=== PATIENT | female | born 1950 | race Caucasian/White ===

== ENCOUNTER → 2017-11-16 08:31 | Outpatient (CLI) | payer MEDICARE, OTHER, SELFPAY ==
[2017-11-16 13:06] LABS: Absolute Lymphocyte Count 3.48 X10^3/ul (0.83-4.51); Absolute Neutrophil Count 0.4 X10^3/uL (2.0-7.7); Basophil# 0.02 X10^3/uL; Basophil% 0.5 % (0-1); Differential Indicated SCAN CRITERIA MET; Eosinophil# 0.04 X10^3/uL; Eosinophils% 0.9 % (0-5); Hematocrit 26.3 % (37-47); Hemoglobin 8.8 g/dl (12.0-15.0); Lymphocyte # 3.48 X10^3/ul (4.0); Lymphocyte % 82.1 % (19-41); Mean Corp Hgb Conc 33.5 g/gl (32-36); Mean Corpuscular Hgb 34.8 pg (27.0-32.0); Monocyte# 0.35 X10^3/uL; Monocyte% 8.3 % (0-10); Neutrophil # 0.35 X10^3/uL (2.7-7.7); Neutrophil % 8.2 % (47-70); POSITIVE COUNT NO; POSITIVE DIFFERENTIAL YES; POSITIVE MORPHOLOGY NO; Platelet Count 336 K/mm3 (150-450); RBC Distribution Width CV 15.5 % (11.6-14.6); Red Blood Count 2.53 M/mm3 (4.2-5.4); White Blood Count 4.2 K/mm3 (4.4-11.0)
[2017-11-16 13:07] LABS: Erythrocyte Sedimentation Rate 23 mm/hr (0-30)
[2017-11-16 13:13] LABS: Vitamin B12 475 pg/mL (211-911); Vitamin D,25 Hydroxy 31.2 ng/mL (29.95-100.01)
[2017-11-16 13:26] LABS: Differential Comment SCANNED
[2017-11-16 15:30] LABS: ALB/GLOB Ratio 1.1 RATIO (0.9-2.4); AST(SGOT) 26 U/L (15-37); Alanine Aminotransfer ALT/SGPT 22 U/L (13-56); Albumin, Serum 4.3 g/dL (3.2-5.0); Alkaline Phosphatase 64 U/L (45-117); Anion Gap 6 (5-15); BUN 9 mg/dL (7-18); CRP < 2.90 mg/L (0.0-3.0); Calcium,Total 8.7 mg/dL (8.5-10.1); Chloride 106 mmol/L (98-107); Creatinine, Serum 0.75 mg/dL (0.55-1.02); EST Glomerular Filtration Rate 83 mL/min (>60); Est Glom Filt Rate - Afr Amer 100 mL/min (>60); Ferritin 94 ng/mL (8-252); Globulin 3.9 g/dL (2.2-4.2); Glucose 97 mg/dL (74-106); Iron 122 ug/dL (50-170); Potassium 3.7 mmol/L (3.5-5.1); Protein, Total 8.2 g/dL (6.4-8.2); Rheumatoid Factor < 10.0 IU/mL (<15); Sodium Level 139 mmol/L (136-145); T4 Free Direct 1.47 ng/dL (0.76-1.46); Thyroid Stim Hormone (TSH) 0.37 uIU/mL (0.358-3.74)
[2017-11-19 11:18] LABS: CCP IgG Antibodies 5 units (0-19)
== END ==
PROVIDERS: Family Provider Family Medicine; PCP Family Medicine; Visit Provider Family Medicine
DX: M06.9 Rheumatoid arthritis, unspecified (principal); E03.9 Hypothyroidism, unspecified; D64.9 Anemia, unspecified; M79.7 Fibromyalgia
CPT/HCPCS: 36415; 80053; 82306; 82607; 82728; 83540; 84439; 84443; 85025; 85652; 86140; 86200; 86431

== ENCOUNTER → 2017-11-21 11:15 | Outpatient (CLI) | payer MEDICARE, OTHER, SELFPAY ==
[2017-11-21 12:53] LABS: Absolute Lymphocyte Count 6.33 X10^3/ul (0.83-4.51); Absolute Neutrophil Count 0.5 X10^3/uL (2.0-7.7); Basophil# 0.03 X10^3/uL; Basophil% 0.4 % (0-1); Eosinophil# 0.04 X10^3/uL; Eosinophils% 0.5 % (0-5); Hematocrit 25.9 % (37-47); Hemoglobin 8.9 g/dl (12.0-15.0); Lymphocyte # 6.33 X10^3/ul (4.0); Lymphocyte % 85.7 % (19-41); Mean Corp Hgb Conc 34.4 g/gl (32-36); Mean Corpuscular Hgb 35.2 pg (27.0-32.0); Mean Corpuscular Volume 102.4 fL (81-99); Mean Platelet Vol. 9.6 fl (6.2-12.0); Monocyte# 0.46 X10^3/uL; Monocyte% 6.2 % (0-10); Neutrophil # 0.53 X10^3/uL (2.7-7.7); Neutrophil % 7.2 % (47-70); Platelet Count 309 K/mm3 (150-450); RBC Distribution Width CV 15.7 % (11.6-14.6); RBC Distribution Width SD 57.9 fl (35.1-43.9); Red Blood Count 2.53 M/mm3 (4.2-5.4); White Blood Count 7.4 K/mm3 (4.4-11.0)
[2017-11-21 12:55] LABS: Differential Indicated SCAN CRITERIA MET; POSITIVE COUNT NO; POSITIVE DIFFERENTIAL YES; POSITIVE MORPHOLOGY YES
== END ==
PROVIDERS: Visit Provider Family Medicine
DX: D64.9 Anemia, unspecified (principal)
CPT/HCPCS: 36415; 85025

== ENCOUNTER → 2018-01-10 10:41 | Outpatient (CLI) | payer MEDICARE, OTHER, SELFPAY ==
--- NOTE | 2018-01-10 10:44 | BI_ITS ---
MAMMOGRAPHY - BILATERAL SCREENING REASON FOR EXAM: Female, 67 years old. Routine annual screening examination. PERTINENT HISTORY: Non-contributory. TECHNIQUE: Digital bilateral breast melanie (3D mammographic acquisition) in the CC and MLO projections. 2-D mediolateral oblique (MLO) and craniocaudad (CC) views of both breasts were obtained. CAD: Full Field Digital Mammography with Computer Added Detection was performed. COMPARISON: Comparison is made with prior examination dated February 21, 2016 and January 14, 2015. FINDINGS: Breast Composition: The breasts are heterogeneously dense, which may obscure small masses. There are no dominant masses or suspicious calcifications. No other significant abnormalities are identified. There has been no significant change since the prior study. BI/SCREENING MAMM (CAD), BILAT IMPRESSION: Stable bilateral screening mammogram. Yearly follow-up mammogram recommended. (A) ASSESSMENT CATEGORY: BIRADS Category 1: Negative. A letter regarding these results will be sent to the patient by the facility within 30 days. Approximately 10% of breast cancers are not detected by mammography. A normal mammogram should not delay biopsy of a clinically suspicious abnormality. [id number] Electronically Signed: James Chávez MD at 9:57 EDT Tel [phone], Service support ,
== END ==
PROVIDERS: Family Provider Family Medicine; PCP Family Medicine; Visit Provider Family Medicine
DX: Z12.31 Encounter for screening mammogram for malignant neoplasm of breast (principal)
CPT/HCPCS: 77063; 77067

== ENCOUNTER → 2018-01-15 13:03 | Outpatient (CLI) | payer MEDICARE, OTHER, SELFPAY ==
[2018-01-15 15:49] LABS: Absolute Lymphocyte Count 4.64 X10^3/ul (0.83-4.51); Absolute Neutrophil Count 0.5 X10^3/uL (2.0-7.7); Basophil# 0.03 X10^3/uL; Basophil% 0.5 % (0-1); Eosinophil# 0.05 X10^3/uL; Eosinophils% 0.9 % (0-5); Hematocrit 24.9 % (37-47); Hemoglobin 8.4 g/dl (12.0-15.0); Lymphocyte # 4.64 X10^3/ul (4.0); Lymphocyte % 83.2 % (19-41); Mean Corp Hgb Conc 33.7 g/gl (32-36); Mean Corpuscular Volume 103.8 fL (81-99); Mean Platelet Vol. 9.5 fl (6.2-12.0); Monocyte% 7.2 % (0-10); Neutrophil # 0.46 X10^3/uL (2.7-7.7); Neutrophil % 8.2 % (47-70); Platelet Count 340 K/mm3 (150-450); RBC Distribution Width CV 14.9 % (11.6-14.6); RBC Distribution Width SD 54.6 fl (35.1-43.9); White Blood Count 5.6 K/mm3 (4.4-11.0)
[2018-01-15 15:52] LABS: Differential Indicated SCAN CRITERIA MET; POSITIVE COUNT NO; POSITIVE DIFFERENTIAL YES; POSITIVE MORPHOLOGY NO
[2018-01-15 16:55] LABS: Platelet Estimate ADEQUATE (ADEQ)
[2018-01-15 16:56] LABS: Anisocytosis RARE; Macrocytosis RARE
== END ==
PROVIDERS: Family Provider Family Medicine; PCP Family Medicine; Visit Provider Family Medicine
DX: D64.9 Anemia, unspecified (principal)
CPT/HCPCS: 36415; 85025

== ENCOUNTER → 2019-01-23 14:30 | Outpatient (CLI) | payer MEDICARE, OTHER, SELFPAY ==
--- NOTE | 2019-01-23 14:36 | BI_ITS ---
MAMMOGRAPHY - BILATERAL SCREENING REASON FOR EXAM: Female, 68 years old. Routine annual screening examination. PERTINENT HISTORY: Non-contributory. History of leukemia. TECHNIQUE: Digital bilateral breast melanie (3D mammographic acquisition) in the CC and MLO projections. 2-D mediolateral oblique (MLO) and craniocaudad (CC) views of both breasts were obtained. CAD: Full Field Digital Mammography with Computer Added Detection was performed. COMPARISON: Comparison is made with prior study dated January 10, 2018 and February 21, 2016. FINDINGS: Breast Composition: The breasts are heterogeneously dense, which may obscure small masses. There are no dominant masses or suspicious calcifications. No other significant abnormalities are identified. There has been no significant change since the prior study. BI/SCREENING MAMM (CAD), BILAT IMPRESSION: Stable bilateral screening mammogram. Yearly follow-up mammogram recommended. (A) ASSESSMENT CATEGORY: BIRADS Category 1: Negative. A letter regarding these results will be sent to the patient by the facility within 30 days. Approximately 10% of breast cancers are not detected by mammography. A normal mammogram should not delay biopsy of a clinically suspicious abnormality. [id number] Electronically Signed: James Chávez, at 8:21 EDT , Service support ,
== END ==
PROVIDERS: Family Provider Family Medicine; PCP Family Medicine; Referring Provider Family Medicine; Visit Provider Family Medicine
DX: Z12.31 Encounter for screening mammogram for malignant neoplasm of breast (principal)
CPT/HCPCS: 77063; 77067

== ENCOUNTER → 2019-08-13 14:18 | Outpatient (CLI) | payer MEDICARE, OTHER, SELFPAY ==
[2019-08-13 16:35] LABS: Thyroid Stim Hormone (TSH) 1.47 uIU/mL (0.358-3.74)
== END ==
PROVIDERS: Family Provider Family Medicine; PCP Family Medicine; Visit Provider Family Medicine
DX: E03.9 Hypothyroidism, unspecified (principal)
CPT/HCPCS: 36415; 84443

== ENCOUNTER → 2020-02-04 07:02 | Outpatient (CLI) | payer MEDICARE, OTHER, SELFPAY ==
--- NOTE | 2020-02-04 07:05 | BI_ITS ---
MAMMOGRAPHY - BILATERAL SCREENING REASON FOR EXAM: Female, 69 years old. Routine annual screening examination. PERTINENT HISTORY: Non-contributory. Past history of leukemia. TECHNIQUE: Digital bilateral breast ajith (3D mammographic acquisition) in the CC and MLO projections. 2-D mediolateral oblique (MLO) and craniocaudad (CC) views of both breasts were obtained. CAD: Full Field Digital Mammography with Computer Added Detection was performed. COMPARISON: Comparison is made with prior study dated January 23, 2019 and January 10, 2018. FINDINGS: Breast Composition: The breasts are heterogeneously dense, which may obscure small masses. There are no dominant masses or suspicious calcifications. No other significant abnormalities are identified. There has been no significant change since the prior study. BI/SCREEN MAMM (CAD) W/AJITH BILAT IMPRESSION: Stable bilateral screening mammogram. Yearly follow-up mammogram recommended. (A) ASSESSMENT CATEGORY: BIRADS Category 1: Negative. A letter regarding these results will be sent to the patient by the facility within 30 days. Approximately 10% of breast cancers are not detected by mammography. A normal mammogram should not delay biopsy of a clinically suspicious abnormality. [id number] Electronically Signed: James Chávez, at 8:46 EDT , Service support ,
== END ==
PROVIDERS: PCP Family Medicine; Referring Provider Family Medicine; Visit Provider Family Medicine
DX: Z12.31 Encounter for screening mammogram for malignant neoplasm of breast (principal)
CPT/HCPCS: 77063; 77067

== ENCOUNTER → 2020-07-19 10:57 | Outpatient (CLI) | payer MEDICARE, OTHER, SELFPAY ==
[2020-07-19 13:05] LABS: Thyroid Stim Hormone (TSH) 0.19 uIU/mL (0.358-3.74)
== END ==
PROVIDERS: PCP Family Medicine; Visit Provider Family Medicine
DX: E03.9 Hypothyroidism, unspecified (principal)
CPT/HCPCS: 36415; 84443

== ENCOUNTER → 2020-08-24 10:21 | Outpatient (CLI) | payer MEDICARE, OTHER, SELFPAY | PROVIDERS: PCP Family Medicine; Visit Provider Family Medicine | DX: E03.9 Hypothyroidism, unspecified (principal) | CPT/HCPCS: 36415; 84439; 84443 ==

== ENCOUNTER → 2021-02-04 07:18 | Outpatient (CLI) | payer MEDICARE, OTHER, SELFPAY ==
--- NOTE | 2021-02-04 07:22 | BI_ITS ---
MAMMOGRAPHY - BILATERAL SCREENING REASON FOR EXAM: Female, 70 years old. Routine annual screening examination. PERTINENT HISTORY: Non-contributory. TECHNIQUE: Digital bilateral breast ajith (3D mammographic acquisition) in the CC and MLO projections. 2-D mediolateral oblique (MLO) and craniocaudad (CC) views of both breasts were obtained. CAD: Full Field Digital Mammography with Computer Added Detection was performed. COMPARISON: Comparison is made with prior study dated 02/04/2020 and 01/23/2019. FINDINGS: Breast Composition: The breasts are heterogeneously dense, which may obscure small masses. There are no dominant masses or suspicious calcifications. No other significant abnormalities are identified. There has been no significant change since the prior study. BI/SCRN MAMM (CAD)W/AJITH BILAT IMPRESSION: Stable bilateral screening mammogram. Yearly follow-up mammogram recommended. (A) ASSESSMENT CATEGORY: BIRADS Category 1: Negative. A letter regarding these results will be sent to the patient by the facility within 30 days. Approximately 10% of breast cancers are not detected by mammography. A normal mammogram should not delay biopsy of a clinically suspicious abnormality. [id number] Electronically Signed: James Chávez MD at 8:26 EDT , Service support ,
== END ==
PROVIDERS: PCP Family Medicine; Referring Provider Family Medicine; Visit Provider Family Medicine
DX: Z12.31 Encounter for screening mammogram for malignant neoplasm of breast (principal)
CPT/HCPCS: 77063; 77067

== ENCOUNTER → 2021-03-15 09:55 | Outpatient (CLI) | payer MEDICARE, OTHER, SELFPAY ==
[2021-03-15 12:09] LABS: Erythrocyte Sedimentation Rate 7 mm/hr (0-30)
[2021-03-15 12:12] LABS: Absolute Lymphocyte Count 1.46 X10^3/uL (0.83-4.51); Absolute Neutrophil Count 1.6 X10^3/uL (2.0-7.7); Basophil# 0.02 X10^3/uL; Basophil% 0.6 % (0-1); Eosinophil# 0.03 X10^3/uL; Eosinophils% 0.8 % (0-5); Hematocrit 34.6 % (37-47); Lymphocyte # 1.46 X10^3/ul (0.83-4.51); Lymphocyte % 40.6 % (19-41); Mean Corp Hgb Conc 34.7 g/dL (32-36); Mean Corpuscular Hgb 32.8 pg (27.0-32.0); Mean Corpuscular Volume 94.5 fL (81-99); Monocyte% 13.9 % (0-10); NRBC Flagged by Analyzer 0 % (0-5); Neutrophil # 1.59 X10^3/uL (2.7-7.7); Neutrophil % 44.1 % (47-70); Platelet Count 278 K/mm3 (150-450); RBC Distribution Width CV 13.6 % (11.6-14.6); RBC Distribution Width SD 46.5 fl (35.1-43.9); Red Blood Count 3.66 M/mm3 (4.2-5.4); White Blood Count 3.6 K/mm3 (4.4-11.0)
[2021-03-15 12:34] LABS: AST(SGOT) 24 U/L (15-37); Alanine Aminotransfer ALT/SGPT 25 U/L (13-56); Albumin, Serum 4.3 g/dL (3.2-5.0); Alkaline Phosphatase 68 U/L (45-117); Anion Gap 7 (5-15); BUN 9 mg/dL (7-18); BUN/Creat Ratio 10.7 RATIO (10-20); CRP < 2.90 mg/L (0.0-3.0); Calcium,Total 9.3 mg/dL (8.5-10.1); Chloride 101 mmol/L (98-107); Creatinine, Serum 0.84 mg/dL (0.55-1.02); EST Glomerular Filtration Rate 71 mL/min (>60); Est Glom Filt Rate - Afr Amer 86 mL/min (>60); Globulin 4.2 g/dL (2.2-4.2); Glucose 91 mg/dL (74-106); Potassium 3.5 mmol/L (3.5-5.1); Protein, Total 8.5 g/dL (6.4-8.2); Rheumatoid Factor < 10.0 IU/mL (<15); Sodium Level 138 mmol/L (136-145)
[2021-03-15 12:50] LABS: Hepatitis B Surface Antibody Non-Reactive; Hepatitis B Surface Antigen Non-Reactive (Nonreactive); Hepatitis C Antibody Non-Reactive (Nonreactive)
[2021-03-16 12:08] LABS: SJOGREN'S Anti-SS-A test < 0.2 AI (0.0-0.9); SJOGREN'S Anti-SS-B test < 0.2 AI (0.0-0.9)
[2021-03-16 16:10] LABS: ANTINUCLEAR ANTIBODIES DIRECT Negative (Negative)
[2021-03-17 07:41] LABS: CCP IgG Antibodies 5 units (0-19)
== END ==
PROVIDERS: PCP Family Medicine; Referring Provider Internal Medicine Rheumatology; Visit Provider Internal Medicine Rheumatology
DX: M06.09 Rheumatoid arthritis without rheumatoid factor, multiple sites (principal); M79.7 Fibromyalgia; C91.Z0 Other lymphoid leukemia not having achieved remission; E03.9 Hypothyroidism, unspecified; J45.909 Unspecified asthma, uncomplicated; E78.5 Hyperlipidemia, unspecified; G43.909 Migraine, unspecified, not intractable, without status migrainosus; Z79.899 Other long term (current) drug therapy
CPT/HCPCS: 36415; 80053; 85025; 85652; 86038; 86140; 86200; 86235; 86431; 86706; 86803; 87340

== ENCOUNTER → 2021-06-07 13:39 | Outpatient (CLI) | payer MEDICARE, OTHER, SELFPAY ==
[2021-06-07 15:23] LABS: Absolute Lymphocyte Count 1.25 X10^3/uL (0.83-4.51); Absolute Neutrophil Count 1.6 X10^3/uL (2.0-7.7); Basophil# 0.04 X10^3/uL; Basophil% 1.3 % (0-1); Eosinophil# 0.02 X10^3/uL; Eosinophils% 0.6 % (0-5); Hematocrit 36.9 % (37-47); Hemoglobin 12.7 g/dL (12.0-15.0); Lymphocyte # 1.25 X10^3/ul (0.83-4.51); Lymphocyte % 39.1 % (19-41); Mean Corp Hgb Conc 34.4 g/dL (32-36); Mean Corpuscular Volume 95.8 fL (81-99); Mean Platelet Vol. 9.7 fl (6.2-12.0); Monocyte# 0.29 X10^3/uL; Monocyte% 9.1 % (0-10); NRBC Flagged by Analyzer 0 % (0-5); Neutrophil % 49.9 % (47-70); Platelet Count 292 K/mm3 (150-450); RBC Distribution Width CV 13.8 % (11.6-14.6); RBC Distribution Width SD 48.3 fl (35.1-43.9); Red Blood Count 3.85 M/mm3 (4.2-5.4); White Blood Count 3.2 K/mm3 (4.4-11.0)
[2021-06-07 15:51] LABS: AST(SGOT) 22 U/L (15-37); Alanine Aminotransfer ALT/SGPT 27 U/L (13-56); Albumin, Serum 4.1 g/dL (3.2-5.0); Alkaline Phosphatase 67 U/L (45-117); Anion Gap 7 (5-15); BUN 8 mg/dL (7-18); BUN/Creat Ratio 9.8 RATIO (10-20); Calcium,Total 9.1 mg/dL (8.5-10.1); Chloride 100 mmol/L (98-107); Creatinine, Serum 0.81 mg/dL (0.55-1.02); EST Glomerular Filtration Rate 74 mL/min (>60); Est Glom Filt Rate - Afr Amer 90 mL/min (>60); Globulin 4.2 g/dL (2.2-4.2); Glucose 103 mg/dL (74-106); Potassium 3.7 mmol/L (3.5-5.1); Protein, Total 8.3 g/dL (6.4-8.2); Sodium Level 137 mmol/L (136-145)
== END ==
PROVIDERS: PCP Family Medicine; Referring Provider Internal Medicine Rheumatology; Visit Provider Internal Medicine Rheumatology
DX: M06.09 Rheumatoid arthritis without rheumatoid factor, multiple sites (principal); M79.7 Fibromyalgia; C91.Z0 Other lymphoid leukemia not having achieved remission; E03.9 Hypothyroidism, unspecified; J45.909 Unspecified asthma, uncomplicated; E78.5 Hyperlipidemia, unspecified; G43.909 Migraine, unspecified, not intractable, without status migrainosus; Z79.899 Other long term (current) drug therapy
CPT/HCPCS: 36415; 80053; 85025

== ENCOUNTER → 2021-08-02 12:11 | Outpatient (CLI) | payer MEDICARE, OTHER, SELFPAY ==
[2021-08-02 15:14] LABS: Absolute Lymphocyte Count 1.56 X10^3/uL (0.83-4.51); Absolute Neutrophil Count 1.5 X10^3/uL (2.0-7.7); Basophil# 0.04 X10^3/uL; Basophil% 1.1 % (0-1); Eosinophil# 0.03 X10^3/uL; Eosinophils% 0.9 % (0-5); Hemoglobin 11.9 g/dL (12.0-15.0); Lymphocyte # 1.56 X10^3/ul (0.83-4.51); Lymphocyte % 44.8 % (19-41); Mean Corpuscular Hgb 32.3 pg (27.0-32.0); Mean Corpuscular Volume 95.1 fL (81-99); Mean Platelet Vol. 10.3 fl (6.2-12.0); Monocyte# 0.34 X10^3/uL; Monocyte% 9.8 % (0-10); NRBC Flagged by Analyzer 0 % (0-5); Neutrophil # 1.51 X10^3/uL (2.7-7.7); Neutrophil % 43.4 % (47-70); Platelet Count 256 K/mm3 (150-450); RBC Distribution Width SD 48.2 fl (35.1-43.9); Red Blood Count 3.68 M/mm3 (4.2-5.4); White Blood Count 3.5 K/mm3 (4.4-11.0)
[2021-08-02 15:29] LABS: AST(SGOT) 23 U/L (15-37); Alanine Aminotransfer ALT/SGPT 26 U/L (13-56); Alkaline Phosphatase 65 U/L (45-117); Anion Gap 5 (5-15); BUN 8 mg/dL (7-18); Calcium,Total 9.1 mg/dL (8.5-10.1); Chloride 102 mmol/L (98-107); EST Glomerular Filtration Rate 76 mL/min (>60); Est Glom Filt Rate - Afr Amer 91 mL/min (>60); Glucose 93 mg/dL (74-106); Sodium Level 137 mmol/L (136-145)
== END ==
PROVIDERS: PCP Family Medicine; Referring Provider Internal Medicine Rheumatology; Visit Provider Internal Medicine Rheumatology
DX: M06.09 Rheumatoid arthritis without rheumatoid factor, multiple sites (principal); M79.7 Fibromyalgia; C91.Z0 Other lymphoid leukemia not having achieved remission; E03.9 Hypothyroidism, unspecified; J45.909 Unspecified asthma, uncomplicated; E78.5 Hyperlipidemia, unspecified; G43.909 Migraine, unspecified, not intractable, without status migrainosus; Z79.899 Other long term (current) drug therapy
CPT/HCPCS: 36415; 80053; 85025

== ENCOUNTER 2021-10-19 08:51 | Outpatient (CLI) | payer MEDICARE, OTHER, SELFPAY ==
[2021-10-19 10:28] LABS: Absolute Lymphocyte Count 1.45 X10^3/uL (0.83-4.51); Basophil# 0.02 X10^3/uL; Basophil% 0.5 % (0-1); Eosinophil# 0.03 X10^3/uL; Eosinophils% 0.8 % (0-5); Hematocrit 34.8 % (37-47); Hemoglobin 11.7 g/dL (12.0-15.0); Lymphocyte # 1.45 X10^3/ul (0.83-4.51); Lymphocyte % 37.1 % (19-41); Mean Corp Hgb Conc 33.6 g/dL (32-36); Mean Corpuscular Hgb 32.3 pg (27.0-32.0); Mean Corpuscular Volume 96.1 fL (81-99); Mean Platelet Vol. 9.4 fl (6.2-12.0); Monocyte# 0.44 X10^3/uL; Monocyte% 11.3 % (0-10); NRBC Flagged by Analyzer 0 % (0-5); Neutrophil # 1.96 X10^3/uL (2.7-7.7); Platelet Count 264 K/mm3 (150-450); RBC Distribution Width CV 14.1 % (11.6-14.6); Red Blood Count 3.62 M/mm3 (4.2-5.4); White Blood Count 3.9 K/mm3 (4.4-11.0)
[2021-10-19 11:06] LABS: ALB/GLOB Ratio 1.1 RATIO (0.9-2.4); AST(SGOT) 22 U/L (15-37); Alanine Aminotransfer ALT/SGPT 29 U/L (13-56); Alkaline Phosphatase 65 U/L (45-117); Anion Gap 4 (5-15); BUN 8 mg/dL (7-18); BUN/Creat Ratio 10.8 RATIO (10-20); Calcium,Total 9.1 mg/dL (8.5-10.1); Chloride 104 mmol/L (98-107); Creatinine, Serum 0.74 mg/dL (0.55-1.02); EST Glomerular Filtration Rate 83 mL/min (>60); Est Glom Filt Rate - Afr Amer 100 mL/min (>60); Globulin 3.7 g/dL (2.2-4.2); Glucose 69 mg/dL (74-106); Potassium 3.8 mmol/L (3.5-5.1); Protein, Total 7.7 g/dL (6.4-8.2); Sodium Level 138 mmol/L (136-145)
== END 2021-10-19 23:59 | disposition home or self-care (01) ==
LOC: MTLAB 08:53
PROVIDERS: PCP Family Medicine; Referring Provider Internal Medicine Rheumatology; Visit Provider Internal Medicine Rheumatology
DX: M06.09 Rheumatoid arthritis without rheumatoid factor, multiple sites (principal); C91.Z0 Other lymphoid leukemia not having achieved remission; M79.7 Fibromyalgia; E03.9 Hypothyroidism, unspecified; J45.909 Unspecified asthma, uncomplicated; E78.5 Hyperlipidemia, unspecified; G43.909 Migraine, unspecified, not intractable, without status migrainosus; Z79.899 Other long term (current) drug therapy
CPT/HCPCS: 36415; 80053; 85025

== ENCOUNTER 2021-12-20 10:20 | Outpatient (CLI) | payer MEDICARE, OTHER, SELFPAY ==
[2021-12-20 12:11] LABS: Absolute Lymphocyte Count 1.27 X10^3/uL (0.83-4.51); Absolute Neutrophil Count 2.3 X10^3/uL (2.0-7.7); Basophil# 0.05 X10^3/uL; Basophil% 1.2 % (0-1); Eosinophil# 0.07 X10^3/uL; Eosinophils% 1.6 % (0-5); Hemoglobin 12.1 g/dL (12.0-15.0); Lymphocyte # 1.27 X10^3/ul (0.83-4.51); Lymphocyte % 29.3 % (19-41); Mean Corp Hgb Conc 34.6 g/dL (32-36); Mean Corpuscular Hgb 33.3 pg (27.0-32.0); Mean Corpuscular Volume 96.4 fL (81-99); Mean Platelet Vol. 9.4 fl (6.2-12.0); Monocyte# 0.63 X10^3/uL; Monocyte% 14.5 % (0-10); NRBC Flagged by Analyzer 0 % (0-5); Neutrophil # 2.32 X10^3/uL (2.7-7.7); Neutrophil % 53.4 % (47-70); Platelet Count 267 K/mm3 (150-450); RBC Distribution Width CV 14.2 % (11.6-14.6); RBC Distribution Width SD 49.6 fl (35.1-43.9); Red Blood Count 3.63 M/mm3 (4.2-5.4); White Blood Count 4.3 K/mm3 (4.4-11.0)
[2021-12-20 12:35] LABS: ALB/GLOB Ratio 1.1 RATIO (0.9-2.4); AST(SGOT) 21 U/L (15-37); Alanine Aminotransfer ALT/SGPT 27 U/L (13-56); Albumin, Serum 4.1 g/dL (3.2-5.0); Alkaline Phosphatase 70 U/L (45-117); Anion Gap 5 (5-15); BUN 10 mg/dL (7-18); BUN/Creat Ratio 12.9 RATIO (10-20); Calcium,Total 8.9 mg/dL (8.5-10.1); Chloride 100 mmol/L (98-107); Creatinine, Serum 0.78 mg/dL (0.55-1.02); EST Glomerular Filtration Rate 78 mL/min (>60); Est Glom Filt Rate - Afr Amer 95 mL/min (>60); Globulin 3.9 g/dL (2.2-4.2); Glucose 103 mg/dL (74-106); Potassium 3.8 mmol/L (3.5-5.1); Sodium Level 136 mmol/L (136-145)
== END 2021-12-20 23:59 | disposition home or self-care (01) ==
LOC: MTLAB 10:23
PROVIDERS: PCP Family Medicine; Referring Provider Internal Medicine Rheumatology; Visit Provider Internal Medicine Rheumatology
DX: M06.09 Rheumatoid arthritis without rheumatoid factor, multiple sites (principal); C91.Z0 Other lymphoid leukemia not having achieved remission; M79.7 Fibromyalgia; E03.9 Hypothyroidism, unspecified; J45.909 Unspecified asthma, uncomplicated; E78.5 Hyperlipidemia, unspecified; G43.909 Migraine, unspecified, not intractable, without status migrainosus; Z79.899 Other long term (current) drug therapy
CPT/HCPCS: 36415; 80053; 85025

== ENCOUNTER → 2022-01-20 | Outpatient (CLI) | payer MEDICARE, OTHER, SELFPAY ==
[2022-01-20 12:49] LABS: Cholesterol 165 mg/dL (200); High Density Lipoprotein 47 mg/dL; Triglycerides 110 mg/dL; Very Low Density Lipoprotein 22 mg/dL (5-40)
== END | disposition home or self-care (01) ==
LOC: MTLAB 09:57
PROVIDERS: PCP Family Medicine; Referring Provider Family Medicine; Visit Provider Family Medicine
DX: E03.9 Hypothyroidism, unspecified (principal); E78.1 Pure hyperglyceridemia
CPT/HCPCS: 36415; 80061; 84439; 84443

== ENCOUNTER → 2022-02-08 | Outpatient (CLI) | payer MEDICARE, OTHER, SELFPAY ==
--- NOTE | 2022-02-08 08:33 | BI_ITS ---
MAMMOGRAPHY - BILATERAL SCREENING REASON FOR EXAM: Female, 71 years old. Routine annual screening examination. PERTINENT HISTORY: Non-contributory. TECHNIQUE: Digital bilateral breast ajith (3D mammographic acquisition) in the CC and MLO projections. 2-D mediolateral oblique (MLO) and craniocaudad (CC) views of both breasts were obtained. CAD: Full Field Digital Mammography with Computer Added Detection was performed. COMPARISON: Comparison is made with prior study dated 02/04/2021 and 02/04/2020. FINDINGS: Breast Composition: The breasts are heterogeneously dense, which may obscure small masses. There are no dominant masses or suspicious calcifications. No other significant abnormalities are identified. There has been no significant change since the prior study. BI/SCRN MAMM (CAD)W/AJITH BILAT IMPRESSION: Stable bilateral screening mammogram. Yearly follow-up mammogram recommended. (A) ASSESSMENT CATEGORY: BIRADS Category 1: Negative. A letter regarding these results will be sent to the patient by the facility within 30 days. Approximately 10% of breast cancers are not detected by mammography. A normal mammogram should not delay biopsy of a clinically suspicious abnormality. [id number] Electronically Signed: James Chávez MD at 9:56 EDT ,
== END | disposition home or self-care (01) ==
LOC: OPBI 08:31
PROVIDERS: PCP Family Medicine; Visit Provider Family Medicine
DX: Z12.31 Encounter for screening mammogram for malignant neoplasm of breast (principal)
CPT/HCPCS: 77063; 77067

== ENCOUNTER → 2022-02-14 | Outpatient (CLI) | payer MEDICARE, OTHER, SELFPAY ==
--- NOTE | 2022-02-14 14:00 | BD_ITS ---
STUDY: DUAL ENERGY X-RAY ABSORPTIOMETRY / DXA REASON FOR EXAM: Female, 71 years old. [id number] TECHNIQUE: Bone Mineral Density (BMD) measurements of lumbar spine and bilateral hips were obtained. COMPARISON: None. FINDINGS: Lumbar Spine (L1-L4): g/cm2 (1.0-1) / T-score (-0.7) / Z-score (1.5) Findings are suggestive of normal bone density with a low fracture risk. Left Femur Total: g/cm2 (0.985) / T-score (0.4) / Z-score (1.8) Left Femoral Neck: g/cm2 (0.786) / T-score (-0.6) / Z-score (1.2) Right Femur Total: g/cm2 (0.980) / T-score (0.3) / Z-score (1.8) Right Femoral Neck: g/cm2 (0.809) / T-score (-0.4) / Z-score (1.4) BD/Dexa Bone Density Study IMPRESSION: The patient is considered normal as outlined below according to World Jacek Organization (WHO) criteria with a low fracture risk. Reference Information: The T-score is the number of standard deviations above or below the standard which is normal for young adults at their peak bone mineral density. The World Health Organization (WHO) interprets the T-scores as follows: Above -1 Normal bone density Between -1 and -2.5 Osteopenia Equal to / or below -2.5 Osteoporosis As a practical clinical guideline, osteopenia may be graded as follows: Mild -1 through -1.5 Moderate -1.6 through -2.0 Severe -2.1 through -2.4 The Z-score is the number of standard deviations above or below age-matched controls. A Z-score of less than -1.5 would be considered abnormal. References: 1. NIH Osteoporosis and Related Bone Diseases www osteo.org 2. International Society for Clinical Densitometry www iscd.org 3. National Osteoporosis Foundation www nof.org Electronically Signed: Arturo Stephens MD at 14:26 EDT ,
== END | disposition home or self-care (01) ==
LOC: OPBD 13:52
PROVIDERS: PCP Family Medicine; Visit Provider Family Medicine
DX: Z78.0 Asymptomatic menopausal state (principal)
CPT/HCPCS: 77080

== ENCOUNTER → 2022-02-20 | Outpatient (CLI) | payer MEDICARE, OTHER, SELFPAY ==
[2022-02-20 10:13] LABS: Absolute Lymphocyte Count 1.75 X10^3/uL (0.83-4.51); Basophil# 0.05 X10^3/uL; Basophil% 1.2 % (0-1); Eosinophil# 0.03 X10^3/uL; Eosinophils% 0.7 % (0-5); Hemoglobin 11.9 g/dL (12.0-15.0); Lymphocyte # 1.75 X10^3/ul (0.83-4.51); Mean Corpuscular Hgb 32.9 pg (27.0-32.0); Mean Corpuscular Volume 96.7 fL (81-99); Mean Platelet Vol. 9.3 fl (6.2-12.0); Monocyte# 0.41 X10^3/uL; Monocyte% 9.6 % (0-10); NRBC Flagged by Analyzer 0 % (0-5); Neutrophil # 2.02 X10^3/uL (2.7-7.7); Neutrophil % 47.3 % (47-70); Platelet Count 238 K/mm3 (150-450); RBC Distribution Width CV 14.3 % (11.6-14.6); RBC Distribution Width SD 49.9 fl (35.1-43.9); Red Blood Count 3.62 M/mm3 (4.2-5.4); White Blood Count 4.3 K/mm3 (4.4-11.0)
[2022-02-20 10:38] LABS: ALB/GLOB Ratio 1.1 RATIO (0.9-2.4); AST(SGOT) 33 U/L (15-37); Alanine Aminotransfer ALT/SGPT 33 U/L (13-56); Albumin, Serum 4.1 g/dL (3.2-5.0); Alkaline Phosphatase 53 U/L (45-117); Anion Gap 4 (5-15); BUN 10 mg/dL (7-18); BUN/Creat Ratio 13.2 RATIO (10-20); Calcium,Total 9.3 mg/dL (8.5-10.1); Chloride 101 mmol/L (98-107); Creatinine, Serum 0.76 mg/dL (0.55-1.02); EST Glomerular Filtration Rate 81 mL/min (>60); Est Glom Filt Rate - Afr Amer 98 mL/min (>60); Globulin 3.7 g/dL (2.2-4.2); Glucose 78 mg/dL (74-106); Potassium 3.5 mmol/L (3.5-5.1); Protein, Total 7.8 g/dL (6.4-8.2); Sodium Level 137 mmol/L (136-145)
== END | disposition home or self-care (01) ==
LOC: MTLAB 08:55
PROVIDERS: PCP Family Medicine; Referring Provider Internal Medicine Rheumatology; Visit Provider Internal Medicine Rheumatology
DX: M06.09 Rheumatoid arthritis without rheumatoid factor, multiple sites (principal); C91.Z0 Other lymphoid leukemia not having achieved remission; M79.7 Fibromyalgia; E03.9 Hypothyroidism, unspecified; J45.909 Unspecified asthma, uncomplicated; E78.5 Hyperlipidemia, unspecified; G43.909 Migraine, unspecified, not intractable, without status migrainosus; Z79.899 Other long term (current) drug therapy
CPT/HCPCS: 36415; 80053; 85025

== ENCOUNTER → 2022-04-28 | Outpatient (CLI) | payer MEDICARE, OTHER, SELFPAY ==
[2022-04-28 15:07] LABS: Absolute Lymphocyte Count 1.14 X10^3/uL (0.83-4.51); Absolute Neutrophil Count 1.8 X10^3/uL (2.0-7.7); Basophil# 0.04 X10^3/uL; Basophil% 1.2 % (0-1); Eosinophil# 0.02 X10^3/uL; Eosinophils% 0.6 % (0-5); Hematocrit 36.2 % (37-47); Hemoglobin 12.3 g/dL (12.0-15.0); Lymphocyte # 1.14 X10^3/ul (0.83-4.51); Mean Corpuscular Hgb 33.2 pg (27.0-32.0); Mean Corpuscular Volume 97.6 fL (81-99); Mean Platelet Vol. 9.7 fl (6.2-12.0); Monocyte# 0.35 X10^3/uL; Monocyte% 10.4 % (0-10); NRBC Flagged by Analyzer 0 % (0-5); Neutrophil % 53.8 % (47-70); Platelet Count 262 K/mm3 (150-450); RBC Distribution Width CV 14.6 % (11.6-14.6); RBC Distribution Width SD 51.5 fl (35.1-43.9); Red Blood Count 3.71 M/mm3 (4.2-5.4); White Blood Count 3.4 K/mm3 (4.4-11.0)
[2022-04-28 15:23] LABS: AST(SGOT) 24 U/L (15-37); Alanine Aminotransfer ALT/SGPT 32 U/L (13-56); Alkaline Phosphatase 59 U/L (45-117); Anion Gap 5 (5-15); BUN 9 mg/dL (7-18); BUN/Creat Ratio 11.2 RATIO (10-20); Calcium,Total 9.2 mg/dL (8.5-10.1); Chloride 98 mmol/L (98-107); EST Glomerular Filtration Rate 75 mL/min (>60); Est Glom Filt Rate - Afr Amer 91 mL/min (>60); Globulin 3.9 g/dL (2.2-4.2); Glucose 103 mg/dL (74-106); Potassium 3.8 mmol/L (3.5-5.1); Protein, Total 7.9 g/dL (6.4-8.2); Sodium Level 135 mmol/L (136-145)
== END | disposition home or self-care (01) ==
LOC: MTLAB 13:09
PROVIDERS: PCP Family Medicine; Referring Provider Internal Medicine Rheumatology; Visit Provider Internal Medicine Rheumatology
DX: M06.09 Rheumatoid arthritis without rheumatoid factor, multiple sites (principal); C91.Z0 Other lymphoid leukemia not having achieved remission; M79.7 Fibromyalgia; E03.9 Hypothyroidism, unspecified; J45.909 Unspecified asthma, uncomplicated; E78.5 Hyperlipidemia, unspecified; G43.909 Migraine, unspecified, not intractable, without status migrainosus; Z79.899 Other long term (current) drug therapy
CPT/HCPCS: 36415; 80053; 85025

== ENCOUNTER → 2022-07-12 | Outpatient (CLI) | payer MEDICARE, OTHER, SELFPAY ==
--- NOTE | 2022-07-12 14:29 | NEURO ---
NCS and/or EMG Patient Report Ordering Doctor: Radha Bonilla DATE OF SERVICE: 07/12/22 Elenita presents for electrodiagnostic testing of the right upper limb. She reports numbness and tingling in the right hand radiating up to the shoulder. Electrodiagnostic findings: Right median motor nerve demonstrates prolonged distal latency with normal amplitude and reduced conduction velocity. Normal right ulnar motor response, including conduction across the elbow. Prolonged right median F wave. Prolonged right median sensory latency at the wrist and palm. Normal right ulnar and radial sensory responses. On needle EMG, all muscles tested in the right upper limb showed no evidence of denervation with normal motor unit action potentials. Electrodiagnostic impression: This is an abnormal study in the right upper limb. 1. Electrodiagnostic findings demonstrate right-sided median mononeuropathy. This is consistent with a moderate to severe right carpal tunnel syndrome.
== END | disposition home or self-care (01) ==
LOC: PSN 13:18
PROVIDERS: PCP Family Medicine; Referring Provider Internal Medicine Rheumatology; Visit Provider Internal Medicine Rheumatology
DX: M06.09 Rheumatoid arthritis without rheumatoid factor, multiple sites (principal); C91.Z0 Other lymphoid leukemia not having achieved remission; M79.7 Fibromyalgia; E03.9 Hypothyroidism, unspecified; J45.909 Unspecified asthma, uncomplicated; E78.5 Hyperlipidemia, unspecified; G43.909 Migraine, unspecified, not intractable, without status migrainosus; Z79.899 Other long term (current) drug therapy
CPT/HCPCS: 95886; 95910

== ENCOUNTER → 2022-07-27 | Outpatient (CLI) | payer MEDICARE, OTHER, SELFPAY ==
[2022-07-27 15:01] LABS: Absolute Lymphocyte Count 1.23 X10^3/uL (0.83-4.51); Absolute Neutrophil Count 2.2 X10^3/uL (2.0-7.7); Basophil# 0.03 X10^3/uL; Basophil% 0.8 % (0-1); Eosinophil# 0.02 X10^3/uL; Eosinophils% 0.6 % (0-5); Hematocrit 37.6 % (37-47); Hemoglobin 12.6 g/dL (12.0-15.0); Lymphocyte # 1.23 X10^3/ul (0.83-4.51); Mean Corp Hgb Conc 33.5 g/dL (32-36); Mean Corpuscular Hgb 32.7 pg (27.0-32.0); Mean Corpuscular Volume 97.7 fL (81-99); Mean Platelet Vol. 10.1 fl (6.2-12.0); Monocyte# 0.19 X10^3/uL; Monocyte% 5.2 % (0-10); NRBC Flagged by Analyzer 0 % (0-5); Neutrophil # 2.15 X10^3/uL (2.7-7.7); Neutrophil % 59.4 % (47-70); Platelet Count 273 K/mm3 (150-450); RBC Distribution Width CV 14.3 % (11.6-14.6); RBC Distribution Width SD 49.8 fl (35.1-43.9); Red Blood Count 3.85 M/mm3 (4.2-5.4); White Blood Count 3.6 K/mm3 (4.4-11.0)
[2022-07-27 15:20] LABS: Albumin, Serum 4.3 g/dL (3.2-5.0); BUN 9 mg/dL (7-18); BUN/Creat Ratio 12.2 RATIO (10-20); Creatinine, Serum 0.74 mg/dL (0.55-1.02); EST Glomerular Filtration Rate 83 mL/min (>60); Est Glom Filt Rate - Afr Amer 101 mL/min (>60); Globulin 4.1 g/dL (2.2-4.2); Glucose 110 mg/dL (74-106); Protein, Total 8.4 g/dL (6.4-8.2)
[2022-07-27 15:21] LABS: AST(SGOT) 19 U/L (15-37); Alanine Aminotransfer ALT/SGPT 28 U/L (13-56); Alkaline Phosphatase 59 U/L (45-117); Anion Gap 5 (5-15); Calcium,Total 9.6 mg/dL (8.5-10.1); Chloride 101 mmol/L (98-107); Potassium 3.6 mmol/L (3.5-5.1); Sodium Level 138 mmol/L (136-145)
== END | disposition home or self-care (01) ==
LOC: MTLAB 11:50
PROVIDERS: PCP Family Medicine; Referring Provider Internal Medicine Rheumatology; Visit Provider Internal Medicine Rheumatology
DX: M06.09 Rheumatoid arthritis without rheumatoid factor, multiple sites (principal); C91.Z0 Other lymphoid leukemia not having achieved remission; M79.7 Fibromyalgia; E03.9 Hypothyroidism, unspecified; J45.909 Unspecified asthma, uncomplicated; E78.5 Hyperlipidemia, unspecified; G43.909 Migraine, unspecified, not intractable, without status migrainosus; Z79.899 Other long term (current) drug therapy
CPT/HCPCS: 36415; 80053; 85025

== ENCOUNTER → 2022-10-23 | Outpatient (CLI) | payer MEDICARE, OTHER, SELFPAY ==
[2022-10-23 15:43] LABS: Absolute Lymphocyte Count 1.44 X10^3/uL (0.83-4.51); Absolute Neutrophil Count 4.4 X10^3/uL (2.0-7.7); Basophil# 0.07 X10^3/uL; Basophil% 1.1 % (0-1); Eosinophil# 0.11 X10^3/uL; Eosinophils% 1.7 % (0-5); Hematocrit 36.9 % (37-47); Hemoglobin 12.2 g/dL (12.0-15.0); Lymphocyte # 1.44 X10^3/ul (0.83-4.51); Lymphocyte % 21.8 % (19-41); Mean Corp Hgb Conc 33.1 g/dL (32-36); Mean Corpuscular Hgb 32.6 pg (27.0-32.0); Mean Corpuscular Volume 98.7 fL (81-99); Mean Platelet Vol. 9.2 fl (6.2-12.0); Monocyte# 0.52 X10^3/uL; Monocyte% 7.9 % (0-10); NRBC Flagged by Analyzer 0 % (0-5); Neutrophil # 4.44 X10^3/uL (2.7-7.7); Platelet Count 264 K/mm3 (150-450); RBC Distribution Width CV 14.3 % (11.6-14.6); RBC Distribution Width SD 51.3 fl (35.1-43.9); Red Blood Count 3.74 M/mm3 (4.2-5.4); White Blood Count 6.6 K/mm3 (4.4-11.0)
[2022-10-23 16:24] LABS: AST(SGOT) 22 U/L (15-37); Alanine Aminotransfer ALT/SGPT 34 U/L (13-56); Albumin, Serum 3.9 g/dL (3.2-5.0); Alkaline Phosphatase 64 U/L (45-117); Anion Gap 4 (5-15); BUN 9 mg/dL (7-18); BUN/Creat Ratio 11.6 RATIO (10-20); Calcium,Total 9.3 mg/dL (8.5-10.1); Chloride 99 mmol/L (98-107); Creatinine, Serum 0.77 mg/dL (0.55-1.02); EST Glomerular Filtration Rate 78 mL/min (>60); Est Glom Filt Rate - Afr Amer 95 mL/min (>60); Glucose 83 mg/dL (74-106); Potassium 3.6 mmol/L (3.5-5.1); Protein, Total 7.9 g/dL (6.4-8.2); Sodium Level 136 mmol/L (136-145)
== END | disposition home or self-care (01) ==
PROVIDERS: PCP Family Medicine; Referring Provider Internal Medicine Rheumatology; Visit Provider Internal Medicine Rheumatology
DX: M06.09 Rheumatoid arthritis without rheumatoid factor, multiple sites (principal); Z79.899 Other long term (current) drug therapy
CPT/HCPCS: 36415; 80053; 85025

== ENCOUNTER → 2023-01-08 | Outpatient (CLI) | payer MEDICARE, OTHER, SELFPAY ==
[2023-01-08 12:17] LABS: Absolute Neutrophil Count 4.3 X10^3/uL (2.0-7.7); Basophil# 0.05 X10^3/uL; Basophil% 0.8 % (0-1); Eosinophil# 0.05 X10^3/uL; Eosinophils% 0.8 % (0-5); Hematocrit 37.7 % (37-47); Hemoglobin 12.9 g/dL (12.0-15.0); Lymphocyte % 15.1 % (19-41); Mean Corp Hgb Conc 34.2 g/dL (32-36); Mean Corpuscular Hgb 33.2 pg (27.0-32.0); Mean Corpuscular Volume 97.2 fL (81-99); Mean Platelet Vol. 9.2 fl (6.2-12.0); Monocyte% 10.1 % (0-10); NRBC Flagged by Analyzer 0 % (0-5); Neutrophil # 4.33 X10^3/uL (2.7-7.7); Neutrophil % 72.9 % (47-70); Platelet Count 304 K/mm3 (150-450); RBC Distribution Width CV 14.2 % (11.6-14.6); RBC Distribution Width SD 49.8 fl (35.1-43.9); Red Blood Count 3.88 M/mm3 (4.2-5.4)
[2023-01-08 12:55] LABS: ALB/GLOB Ratio 0.9 RATIO (0.9-2.4); AST(SGOT) 19 U/L (15-37); Alanine Aminotransfer ALT/SGPT 23 U/L (13-56); Albumin, Serum 3.8 g/dL (3.2-5.0); Alkaline Phosphatase 78 U/L (45-117); Anion Gap 7 (5-15); BUN 7 mg/dL (7-18); BUN/Creat Ratio 9.3 RATIO (10-20); Calcium,Total 9.8 mg/dL (8.5-10.1); Chloride 100 mmol/L (98-107); Creatinine, Serum 0.75 mg/dL (0.55-1.02); EST Glomerular Filtration Rate 81 mL/min (>60); Est Glom Filt Rate - Afr Amer 98 mL/min (>60); Globulin 4.2 g/dL (2.2-4.2); Glucose 74 mg/dL (74-106); Potassium 3.7 mmol/L (3.5-5.1); Sodium Level 136 mmol/L (136-145)
== END | disposition home or self-care (01) ==
LOC: MTLAB 11:11
PROVIDERS: PCP Nurse Practitioner Family; Referring Provider Internal Medicine Rheumatology; Visit Provider Internal Medicine Rheumatology
DX: M06.09 Rheumatoid arthritis without rheumatoid factor, multiple sites (principal); Z79.899 Other long term (current) drug therapy
CPT/HCPCS: 36415; 80053; 85025

== ENCOUNTER → 2023-01-23 | Outpatient (CLI) | payer MEDICARE, OTHER, SELFPAY ==
[2023-01-23 11:02] LABS: Vitamin D,25 Hydroxy 89.4 ng/mL
[2023-01-23 11:20] LABS: Cholesterol 143 mg/dL (200); High Density Lipoprotein 50 mg/dL; T4 Free Direct 1.55 ng/dL (0.76-1.46); Thyroid Stim Hormone (TSH) 1.02 uIU/mL (0.358-3.74); Triglycerides 97 mg/dL; Very Low Density Lipoprotein 19 mg/dL (5-40)
== END | disposition home or self-care (01) ==
LOC: MTLAB 09:01
PROVIDERS: PCP Nurse Practitioner Family; Referring Provider Nurse Practitioner Family; Visit Provider Nurse Practitioner Family
DX: E03.9 Hypothyroidism, unspecified (principal); E78.1 Pure hyperglyceridemia; E55.9 Vitamin D deficiency, unspecified
CPT/HCPCS: 36415; 80061; 82306; 84439; 84443

== ENCOUNTER → 2023-02-09 | Outpatient (CLI) | payer MEDICARE, OTHER, SELFPAY ==
--- NOTE | 2023-02-09 10:52 | BI_ITS ---
MAMMOGRAPHY - BILATERAL SCREENING REASON FOR EXAM: Female, 72 years old. Routine annual screening examination. PERTINENT HISTORY: Non-contributory. TECHNIQUE: Digital bilateral breast ajith (3D mammographic acquisition) in the CC and MLO projections. 2-D mediolateral oblique (MLO) and craniocaudad (CC) views of both breasts were obtained. CAD: Full Field Digital Mammography with Computer Added Detection was performed. COMPARISON: Comparison is made with prior study dated February 08, 2022 and February 04, 2021. FINDINGS: Breast Composition: The breasts are heterogeneously dense, which may obscure small masses. There are no dominant masses or suspicious calcifications. No other significant abnormalities are identified. There has been no significant change since the prior study. BI/SCRN MAMM (CAD)W/AJITH BILAT IMPRESSION: Stable bilateral screening mammogram. Yearly follow-up mammogram recommended. (A) ASSESSMENT CATEGORY: BIRADS Category 1: Negative. A letter regarding these results will be sent to the patient by the facility within 30 days. Approximately 10% of breast cancers are not detected by mammography. A normal mammogram should not delay biopsy of a clinically suspicious abnormality. [id number] Electronically Signed: James Chávez MD at 12:45 EDT ,
== END | disposition home or self-care (01) ==
LOC: OPBI 10:51
PROVIDERS: PCP Nurse Practitioner Family; Referring Provider Nurse Practitioner Family; Visit Provider Nurse Practitioner Family
DX: Z12.31 Encounter for screening mammogram for malignant neoplasm of breast (principal)
CPT/HCPCS: 77063; 77067

== ENCOUNTER → 2023-04-27 | Outpatient (CLI) | payer MEDICARE, OTHER, SELFPAY ==
[2023-04-27 12:29] LABS: Absolute Lymphocyte Count 0.96 X10^3/uL (0.83-4.51); Absolute Neutrophil Count 5.3 X10^3/uL (2.0-7.7); Basophil# 0.06 X10^3/uL; Basophil% 0.9 % (0-1); Eosinophil# 0.02 X10^3/uL; Eosinophils% 0.3 % (0-5); Hematocrit 39.8 % (37-47); Hemoglobin 12.9 g/dL (12.0-15.0); Lymphocyte # 0.96 X10^3/ul (0.83-4.51); Lymphocyte % 14.2 % (19-41); Mean Corp Hgb Conc 32.4 g/dL (32-36); Mean Corpuscular Hgb 31.3 pg (27.0-32.0); Mean Corpuscular Volume 96.6 fL (81-99); Mean Platelet Vol. 9.6 fl (6.2-12.0); Monocyte# 0.37 X10^3/uL; Monocyte% 5.5 % (0-10); NRBC Flagged by Analyzer 0 % (0-5); Neutrophil # 5.34 X10^3/uL (2.7-7.7); Neutrophil % 78.8 % (47-70); Platelet Count 312 K/mm3 (150-450); RBC Distribution Width CV 14.8 % (11.6-14.6); RBC Distribution Width SD 51.1 fl (35.1-43.9); Red Blood Count 4.12 M/mm3 (4.2-5.4); White Blood Count 6.8 K/mm3 (4.4-11.0)
[2023-04-27 12:44] LABS: ALB/GLOB Ratio 1.1 RATIO (0.9-2.4); AST(SGOT) 22 U/L (15-37); Alanine Aminotransfer ALT/SGPT 42 U/L (13-56); Albumin, Serum 4.1 g/dL (3.2-5.0); Alkaline Phosphatase 66 U/L (45-117); Anion Gap 6 (5-15); BUN 11 mg/dL (7-18); BUN/Creat Ratio 13.8 RATIO (10-20); Calcium,Total 9.1 mg/dL (8.5-10.1); Chloride 102 mmol/L (98-107); EST Glomerular Filtration Rate 76 mL/min (>60); Est Glom Filt Rate - Afr Amer 91 mL/min (>60); Globulin 3.7 g/dL (2.2-4.2); Glucose 127 mg/dL (74-106); Potassium 3.5 mmol/L (3.5-5.1); Protein, Total 7.8 g/dL (6.4-8.2); Sodium Level 139 mmol/L (136-145)
== END | disposition home or self-care (01) ==
LOC: MTLAB 09:42
PROVIDERS: PCP Nurse Practitioner Family; Referring Provider Internal Medicine Rheumatology; Visit Provider Internal Medicine Rheumatology
DX: M06.09 Rheumatoid arthritis without rheumatoid factor, multiple sites (principal); Z79.899 Other long term (current) drug therapy
CPT/HCPCS: 36415; 80053; 85025

== ENCOUNTER → 2023-07-26 | Outpatient (CLI) | payer MEDICARE, OTHER, SELFPAY ==
[2023-07-26 14:55] LABS: Absolute Lymphocyte Count 1.32 X10^3/uL (0.83-4.51); Absolute Neutrophil Count 4.7 X10^3/uL (2.0-7.7); Basophil# 0.09 X10^3/uL; Basophil% 1.3 % (0-1); Eosinophil# 0.13 X10^3/uL; Eosinophils% 1.9 % (0-5); Hematocrit 40.5 % (37-47); Lymphocyte # 1.32 X10^3/ul (0.83-4.51); Lymphocyte % 18.9 % (19-41); Mean Corp Hgb Conc 32.1 g/dL (32-36); Mean Corpuscular Hgb 32.1 pg (27.0-32.0); Monocyte# 0.71 X10^3/uL; Monocyte% 10.1 % (0-10); NRBC Flagged by Analyzer 0 % (0-5); Neutrophil # 4.73 X10^3/uL (2.7-7.7); Neutrophil % 67.5 % (47-70); Platelet Count 309 K/mm3 (150-450); RBC Distribution Width CV 14.3 % (11.6-14.6); RBC Distribution Width SD 51.8 fl (35.1-43.9); Red Blood Count 4.05 M/mm3 (4.2-5.4)
[2023-07-26 15:27] LABS: ALB/GLOB Ratio 1.2 RATIO (0.9-2.4); AST(SGOT) 24 U/L (15-37); Alanine Aminotransfer ALT/SGPT 23 U/L (13-56); Albumin, Serum 4.3 g/dL (3.2-5.0); Alkaline Phosphatase 68 U/L (45-117); Anion Gap 9 (5-15); BUN 16 mg/dL (7-18); BUN/Creat Ratio 22.6 RATIO (10-20); Chloride 103 mmol/L (98-107); Creatinine, Serum 0.71 mg/dL (0.55-1.02); EST Glomerular Filtration Rate 86 mL/min (>60); Est Glom Filt Rate - Afr Amer 105 mL/min (>60); Globulin 3.7 g/dL (2.2-4.2); Glucose 102 mg/dL (74-106); Potassium 3.9 mmol/L (3.5-5.1); Sodium Level 139 mmol/L (136-145)
== END | disposition home or self-care (01) ==
LOC: MTLAB 12:54
PROVIDERS: PCP Nurse Practitioner Family; Referring Provider Internal Medicine Rheumatology; Visit Provider Internal Medicine Rheumatology
DX: M06.09 Rheumatoid arthritis without rheumatoid factor, multiple sites (principal); M79.7 Fibromyalgia; Z79.899 Other long term (current) drug therapy
CPT/HCPCS: 36415; 80053; 85025

== ENCOUNTER → 2023-08-01 | Outpatient (CLI) | payer MEDICARE, OTHER, SELFPAY ==
[2023-08-01 13:03] LABS: T4 Free Direct 1.27 ng/dL (0.76-1.46); Thyroid Stim Hormone (TSH) 1.49 uIU/mL (0.358-3.74)
== END | disposition home or self-care (01) ==
LOC: BFHLAB 11:04
PROVIDERS: PCP Nurse Practitioner Family; Visit Provider Nurse Practitioner Family
DX: E03.9 Hypothyroidism, unspecified (principal)
CPT/HCPCS: 36415; 84439; 84443

== ENCOUNTER → 2023-08-06 | Outpatient (CLI) | payer MEDICARE, OTHER, SELFPAY ==
--- NOTE | 2023-08-06 13:00 | RAD_ITS ---
STUDY: X-RAY CHEST REASON FOR EXAM: Female, 73 years old. Chronic cough. TECHNIQUE: Frontal and lateral views of the chest. COMPARISON: August 29, 2016. FINDINGS: Stable hyperinflation with scattered field parenchymal granulomatous calcifications. Mild cardiomegaly with aortic tortuosity unchanged. Stable thoracic osteopenia, spondylosis and increased kyphosis. No abnormality of the visualized soft tissue structures of the upper abdomen. RAD/Chest PA and Lateral IMPRESSION: Stable chest with no acute or active cardiopulmonary disease. Electronically Signed: Erick Dominguez MD at 13:47 EST ,
== END | disposition home or self-care (01) ==
LOC: MTRAD 12:57
PROVIDERS: PCP Nurse Practitioner Family; Referring Provider Nurse Practitioner Family; Visit Provider Nurse Practitioner Family
DX: R05.3 Chronic cough (principal); Z91.09 Other allergy status, other than to drugs and biological substances
CPT/HCPCS: 71046

== ENCOUNTER → 2023-10-25 | Outpatient (CLI) | payer MEDICARE, OTHER, SELFPAY ==
[2023-10-25 17:42] LABS: Absolute Lymphocyte Count 1.24 X10^3/uL (0.83-4.51); Absolute Neutrophil Count 4.1 X10^3/uL (2.0-7.7); Basophil# 0.08 X10^3/uL; Basophil% 1.3 % (0-1); Eosinophil# 0.11 X10^3/uL; Eosinophils% 1.8 % (0-5); Hematocrit 39.2 % (37-47); Hemoglobin 12.6 g/dL (12.0-15.0); Lymphocyte # 1.24 X10^3/ul (0.83-4.51); Lymphocyte % 20.1 % (19-41); Mean Corp Hgb Conc 32.1 g/dL (32-36); Mean Corpuscular Hgb 31.5 pg (27.0-32.0); Mean Platelet Vol. 10.2 fl (6.2-12.0); Monocyte# 0.63 X10^3/uL; Monocyte% 10.2 % (0-10); NRBC Flagged by Analyzer 0 % (0-5); Neutrophil # 4.11 X10^3/uL (2.7-7.7); Neutrophil % 66.4 % (47-70); Platelet Count 340 K/mm3 (150-450); RBC Distribution Width CV 15.2 % (11.6-14.6); White Blood Count 6.2 K/mm3 (4.4-11.0)
[2023-10-25 17:58] LABS: AST(SGOT) 26 U/L (15-37); Alanine Aminotransfer ALT/SGPT 37 U/L (13-56); Albumin, Serum 4.2 g/dL (3.2-5.0); Alkaline Phosphatase 77 U/L (45-117); Anion Gap 1 (5-15); BUN 18 mg/dL (7-18); BUN/Creat Ratio 20.4 RATIO (10-20); Calcium,Total 9.6 mg/dL (8.5-10.1); Chloride 103 mmol/L (98-107); Creatinine, Serum 0.88 mg/dL (0.55-1.02); EST Glomerular Filtration Rate 67 mL/min (>60); Est Glom Filt Rate - Afr Amer 81 mL/min (>60); Glucose 113 mg/dL (74-106); Potassium 3.8 mmol/L (3.5-5.1); Protein, Total 8.2 g/dL (6.4-8.2); Sodium Level 137 mmol/L (136-145)
--- OUTSIDE RECORDS SUMMARY | 2023-10-25 20:36 | XMS RPT_ITS | CCD ---
Author Name Unknown Address [address] [place] [address] Organization [facility] Care Team Providers Care Channel Machine Operator Name Role Phone Celio FRANCO, Barbie Oliver Primary Care Provider Bradford ESCOBAR, Wendy Unavailable Unavailable Radha Bonilla Unavailable Celio FRANCO, Barbie Oliver Primary Care Provider Bradford ESCOBAR, Wendy Unavailable Unavailable Juanito Bonillama L Unavailable Teodoro FRANCO, Lui Unavailable [phone] JUNE YUN Referring Unavailable KARAN MONIQUE Attending Unavailable BARIBE PICKENS Primary Care Unavailable BARBIE PICKENS Primary Care Unavailable JUNE YUN Referring Unavailable BARBIE PICKENS Primary Care Unavailable JUNE YUN Attending Unavailable JUNE YUN Referring Unavailable BARBIE PICKENS Primary Care Unavailable Allergies Allergy Classification Reported Allergen(s) Allergy Type Date of Onset Reaction(s) Facility (6 sources) Adhesive Tape; Translations: [ADHESIVE TAPE (ROSINS)] Allergy to substance 8 Rash, Itching, Other: See Comments [facility] (6 sources) Dust; Translations: [DUST] Propensity to adverse reactions 6 [facility] Work Phone: (6 sources) Grass pollen; Translations: [GRASS POLLEN] Propensity to adverse reactions 6 [facility] Work Phone: (6 sources) Latex; Translations: [LATEX] Propensity to adverse reactions 9 [facility] (6 sources) Mold Extract; Translations: [MOLD] Drug Allergy 6 [facility] Work Phone: (6 sources) Orphenadrine; Translations: [ORPHENADRINE] Drug Allergy 6 [facility] Work Phone: (2 sources) Penicillins; Translations: [PENICILLINS] Propensity to adverse reactions 6 [facility] Work Phone: (6 sources) Sulfonamides (Antibiotic); Translations: [SULFA (SULFONAMIDE ANTIBIOTICS)] Propensity to adverse reactions 6 [facility] Work Phone: (2 sources) Tetracycline (class of antibiotic); Translations: [TETRACYCLINES] Propensity to adverse reactions 7 [facility] Work Phone: (6 sources) Animal Dander; Translations: [ANIMAL DANDER] Propensity to adverse reactions 6 [facility] Work Phone: [phone] (5 sources) bandaids [Other] Propensity to adverse reactions 6 [facility] Work Phone: (6 sources) Bees; Translations: [BEES] Propensity to adverse reactions 6 [facility] Work Phone: (5 sources) emyacin [Other] Propensity to adverse reactions 6 [facility] Work Phone: [phone] (5 sources) flu vaccine [Other] Propensity to adverse reactions 6 [facility] (6 sources) Iodinated Contrast Media; Translations: [IODINATED CONTRAST MEDIA] Drug Allergy 8 GI Upset [facility] (6 sources) Mildew; Translations: [MILDEW] Propensity to adverse reactions 6 [facility] Work Phone: (6 sources) Ragweed; Translations: [RAGWEED] Propensity to adverse reactions 6 [facility] Work Phone: (2 sources) Tetanus Vaccines And Toxoid; Translations: [TETANUS VACCINES AND TOXOID] Propensity to adverse reactions 6 [facility] Work Phone: (4 sources) Penicillins Propensity to adverse reactions 6 [facility] Work Phone: (4 sources) Tetracycline (class of antibiotic) Propensity to adverse reactions 7 [facility] Work Phone: (4 sources) Tetanus Vaccines And Toxoid Propensity to adverse reactions 6 [facility] Work Phone: (1 source) OTHER; Translations: [OTHER] Propensity to adverse reactions (disorder) 6 [facility] Rep[facility] Medications Completed/Discontinued Medications Medication Drug Class(es) Dates Sig (Normalized) Sig (Original) acetaminophen 500 mg oral tablet (5 sources) acetaminophen (T YLENOL) 500 mg tablet Take 500 mg by mouth as needed. 0 Active Problems Active Problems Problem Classification Problem Date Documented Da te Episodic/Chronic Asthma (5 sources) Unspecified asthma, uncomplicated; Translations: [Asthma, unspecified type, unspecified] Onset: 07-04-2006 07-04-2006 Chronic Deficiency and other anemia (5 sources) Anemia in neoplastic disease; Translations: [Anemia in neoplastic disease] Onset: 02-08-2018 03-08-2018 Chronic Deficiency and other anemia (1 source) Anemia in neoplastic disease; Translations: [Anemia in neoplastic disease] Onset: 2022 Chronic Deficiency and other anemia (1 source) Anemia; Translations: [Anemia, unspecified] Episodic Diseases of white blood cells (1 source) Neutropenia; Translations: [Neutropenia, unspecified] Chronic Disorders of lipid metabolism (5 sources) Hyperlipidemia; Translations: [Hyperlipidemia, unspecified] Onset: 06-04-2008 06-04-2008 Chronic Headache; including migraine (5 sources) Migraine without aura; Translations: [Migraine without aura, not intractable, without status migrainosus] Onset: 07-19-2007 01-18-2018 Chronic Leukemias (10 sources) Large granular lymphocytic leukemia; Translations: [Other lymphoid leukemia not having achieved remission] Onset: 02-08-2018 Chronic Menopausal disorders (5 sources) Menopausal symptom; Translations: [Menopausal and female climacteric states] Onset: 04-23-2006 04-23-2006 Chronic Other upper respiratory disease (5 sources) Allergic rhinitis; Translations: [Allergic rhinitis, unspecified] Onset: 07-04-2006 07-04-2006 Chronic Rheumatoid arthritis and related disease (13 sources) Rheumatoid arthritis of multiple joints; Translations: [Rheumatoid arthritis without rheumatoid factor, multiple sites] Onset: 07-04-2006 Chronic Thyroid disorders (5 sources) Hypothyroidism; Translations: [Hypothyroidism, unspecified] Onset: 07-04-2006 07-04-2006 Chronic Past or Other Problems Problem Classification Problem Date Documented Da te Episodic/Chronic Other connective tissue disease (5 sources) Muscle pain; Translations: [Myalgia and myositis, unspecified] Onset: 07-04-2006 07-04-2006 Episodic Results Test Name Value Interpretation Reference Range Facil ity Vital Signs Date Time Vital Sign Value Performing Clinician Faci lity 01-18-2023 11:25-0400 Body temperature 97.81 [degF] Karan Monique MD Work Phone: [facility] 01-18-2023 11:25-0400 Body weight 63.73 kg Karan Monique MD Work Phone: [facility] 01-18-2023 11:25-0400 Diastolic blood pressure 69 mm[Hg] Karan Monique MD Work Phone: [facility] 01-18-2023 11:25-0400 Heart rate 78 /min Karan Monique MD Work Phone: [facility] 01-18-2023 11:25-0400 SaO2% (BldA) [Mass fraction] 98 % Karan Monique MD Work Phone: [facility] 01-18-2023 11:25-0400 Systolic blood pressure 127 mm[Hg] Karan Monique MD Work Phone: [facility] 2022 11:27-0500 Body height 160 cm June Yun MD Work Phone: [facility] 2022 11:27-0500 Body temperature 97.59 [degF] June Yun MD Work Phone: [facility] 2022 11:27-0500 Body weight 63.05 kg June Yun MD Work Phone: [facility] 2022 11:27-0500 Diastolic blood pressure 64 mm[Hg] June Yun MD Work Phone: [facility] 2022 11:27-0500 Heart rate 76 /min June Yun MD Work Phone: [facility] 2022 11:27-0500 SaO2% (BldA) [Mass fraction] 96 % June Yun MD Work Phone: [facility] 2022 11:27-0500 Systolic blood pressure 129 mm[Hg] June Yun MD Work Phone: [facility] Encounters Encounter Date Encounter Type Care Provider Facility Start: 01-18-2023 End: 01-18-2023 ambulatory JUNE YUN Facility:[facility] Start: 01-18-2023 End: 01-18-2023 Office outpatient visit 15 minutes Karan Monique MD Work Phone: Hematology/Oncology Procedures Date Procedure Procedure Detail Performing Clinician Start: 12-26-2021 Us abdominal real ti me w/image limited June Yun MD Work Phone: Start: 06-23-2019 Adult depression scr eening assessment [facility] 2 Work Phone: Start: 11-25-2013 Mammography [facility] Work Phone: Start: 08-30-2006 Colonoscopy [facility] 2 Work Phone: Plan of Treatment Date Care Activity Detail Author Start: 01-16-2026 DIABETES SCREEN DIABETES SCREEN [facility] Start: 07-14-2025 DIABETES SCREEN DIABETES SCREEN [facility] Start: 12-26-2024 DIABETES SCREEN DIABETES SCREEN [facility] Start: 01-15-2023 End: 03-17-2023 CBC W Auto Differential panel - Blood CBC + DIFF Lab STAT Large granular lymphocytic leukemia (HCC) Rheumatoid arthritis 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) Expected: 01/15/2023, Expires: 03/17/2023 [facility] Work Phone: Immunizations Immunization Date Immunization Notes Care Provider Brittni martinez 12-25-2020 COVID-19 vaccine, ag e 12+ yr (PFIZER-BIONTECH - PURPLE TOP) Us 2 Work Phone: [facility] 12-02-2020 COVID-19 vaccine, ag e 12+ yr (PFIZER-BIONTECH - PURPLE TOP) Us 2 Work Phone: [facility] 06-27-2018 pneumococcal polysaccharide vaccine, 23 jayde Yun MD Work Phone: [facility] Payers Date Payer Category Payer Medicare MEDICARE MEDICAR E A AND B [id number] 2017-Present [phone] [place] [address] Medicare [id number] 2017 Medicare MEDICARE MEDICAR E A AND B [id number] 2017-Present [phone] [place] [address] Medicare [id number] 2017 Medicare [id number] 2005 Unknown [facility] [id number] 2005-Present [phone] [address] [address] [place] [address] Indemnity [id number] 2005 Unknown [facility] [id number] 2005-Present [phone] [address] [address] [place] [address] Indemnity [id number] 2005 Unknown [id number] Social History Date Type Detail Facility Start: 08-16-2011 Tobacco smoking stat us [facility] Never smoked tobacco [facility] Start: 06-17-2021 End: 01-18-2023 Alcohol intake Current non-drinker of alcohol (finding) [facility] Start: 1950 Sex Assigned At Not on file C [facility] Start: 11-22-2021 End: 2022 Exposure to SARS-CoV-2 (event) Not sure [facility] Start: 08-16-2011 Tobacco use and exposure Smoke less tobacco non-user [facility] Clinical Notes 12-26-2021 to 01-18-2023 Karan Monique MD - 01/18/2023 11:27 AM Gilmer Yun MD - 2022 11:23 AM ESTTelephone Encounter - June Yun MD - 07/14/2022 1:12 PM EDTMarian Garzon [facility] - 12/26/2021 11:30 AM EDT Note Date & Type Note Facility 01-18-2023 Note HNO ID: [id number] Author: Karan Monique MD Service: ? 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 She has been receiving methotrexate 32.5 mg weekly subcu injections at home and folate acid 1 mg daily, and her anemia and neutropenia have improved/resolved. Clinically she has been doing well without any new complaints other than chronic balance issue. She has been in bereavement since her 's passing approximately 1 year ago. She denies fever, chills, night sweats, or weight loss. Current Outpatient Medications Medication Sig Dispense Refill latanoprost (XALATAN) 0.005 % ophthalmic solution 1 Drop daily at bedtime. OTC PRODUCT Hempvana Cream as needed for pain for arthritis levothyroxine (SYNTHROID) 75 mcg tablet Take 75 mcg by mouth once daily. methotrexate pf (RASUVO) 25 mg/0.5 mL subcutaneous auto-injector Inject 0.75 mL subcutaneously one time a week. gabapentin (NEURONTIN) 100 mg capsule Take 100 mg by mouth three times daily. Potassium 99 mg tab Take 1 tablet by mouth once daily. folic acid 800 mcg tablet Take 800 mcg by mouth once daily. pseudoephedrine HCl (SUDAFED ORAL) Take 1 tablet by mouth every 12 hours as needed. acetaminophen (TYLENOL) 500 mg tablet Take 500 mg by mouth as needed. cholecalciferol, vitamin D3, (VITAMIN D3 ORAL) Take 5,000 Units by mouth once daily. sodium chloride (AYR, OCEAN) 0.65 % nasal spray Use 1 [place] in the nose as needed. therapeutic multivitamin (THERA VITAMIN) tablet Take 1 tablet by mouth once daily. 100 tablet 0 guaifenesin/dextromethorphan (MUCINEX DM ORAL) Take 1 tablet by mouth twice daily as needed. pravastatin 20 mg tablet Take 1 tablet by mouth every evening. 90 tablet 3 EPINEPHrine (EPIPEN) 0.3 mg/0.3 mL (1:1,000) PnIj Use as directed 1 Each 2 diphenhydramine hcl(BENADRYL 25 MG CAP) Take 100 mg by mouth as needed. 0 SOOTHE 1 %-4.5 % EYE DROPS PRN 0 OTC PRODUCT Hempvana Cream: One application as needed for pain. (Patient not taking: Reported on 01/18/2023) traZODone 50 mg tablet Take 2 tablets by mouth daily at bedtime. (Patient not taking: Reported on 01/18/2023) 180 tablet 3 montelukast 10 mg tablet Take 1 tablet by mouth daily at bedtime. (Patient not taking: Reported on 01/18/2023) 90 tablet 3 No current facility-administered medications for this visit. REVIEW OF SYSTEMS: Review of Systems Constitutional: Negative for chills, fatigue, fever and unexpected weight change. HENT: Negative for lump/mass, mouth sores and nosebleeds. Eyes: Negative for icterus. Respiratory: Negative for cough, hemoptysis and shortness of breath. Cardiovascular: Negative for chest pain and palpitations. Gastrointestinal: Negative for abdominal pain and blood in stool. Genitourinary: Negative for dysuria, frequency and hematuria. Skin: Negative for rash. Neurological: Negative for dizziness and numbness. Hematological: Negative for adenopathy. Does not bruise/bleed easily. Psychiatric/Behavioral: Positive for depression. Negative for confusion and decreased concentration. PHYSICAL EXAM: BP 127/69 Pulse 78 Temp 36.6 ?C (97.8 ?F) (Temporal) Wt 63.7 kg (140 lb 8 oz) SpO2 98% BMI 24.89 kg/m2 Body mass index is 24.89 kg/m?. Estimated body surface area is 1.68 meters squared as calculated from the following: Height as of 07/21/22: 160 cm (5' 2.99 ). Weight as of this encounter: 63.7 kg (140 lb 8 oz). ECO- Restricted in physically strenuous activity. Carries out light duty. Physical Exam Vitals reviewed. Constitutional: Appearance: Normal appearance. She is normal weight. HENT: Head: Normocephalic and atraumatic. Eyes: Conjunctiva/sclera: Conjunctivae normal. Cardiovascular: Rate and Rhythm: Normal rate and regular rhythm. Pulmonary: Effort: Pulmonary effort is normal. No respiratory distress. Breath sounds: Normal breath sounds. No wheezing or rales. Abdominal: General: There is no distension. Palpations: Abdomen is soft. Tenderness: There is no abdominal tenderness. Musculoskeletal: General: Normal range of motion. Cervical back: Normal range of motion and neck supple. Right lower leg: No edema. Left lower leg: No edema. Skin: Findings: No lesion or rash. Neurological: General: No focal deficit present. Mental Status: She is alert and oriented to person, place, and time. Psychiatric: Mood and Affect: Mood normal. Behavior: Behavior normal. LABS: Latest Reference Range AND Units 01/16/23 11:07 WBC 3.70 - 11.00 k/uL 5.38 RBC 3.90 - 5.20 m/uL 4.08 Hemoglobin 11.5 - 15.5 g/dL 13.3 Hematocrit 36.0 - 46.0 % 38.0 Platelet Count 150 - 400 k/uL (more content not included)... [facility] 01-18-2023 History of Present illness Narrative Images from the original note were not included. 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 She has been receiving methotrexate 32.5 mg weekly subcu injections at home and folate acid 1 mg daily, and her anemia and neutropenia have improved/resolved. Clinically she has been doing well without any new complaints other than chronic balance issue. She has been in bereavement since her 's passing approximately 1 year ago. She denies fever, chills, night sweats, or weight loss. Current Outpatient Medications Medication Sig Dispense Refill latanoprost (XALATAN) 0.005 % ophthalmic solution 1 Drop daily at bedtime. OTC PRODUCT Hempvana Cream as needed for pain for arthritis levothyroxine (SYNTHROID) 75 mcg tablet Take 75 mcg by mouth once daily. methotrexate pf (RASUVO) 25 mg/0.5 mL subcutaneous auto-injector Inject 0.75 mL subcutaneously one time a week. gabapentin (NEURONTIN) 100 mg capsule Take 100 mg by mouth three times daily. Potassium 99 mg tab Take 1 tablet by mouth once daily. folic acid 800 mcg tablet Take 800 mcg by mouth once daily. pseudoephedrine HCl (SUDAFED ORAL) Take 1 tablet by mouth every 12 hours as needed. acetaminophen (TYLENOL) 500 mg tablet Take 500 mg by mouth as needed. cholecalciferol, vitamin D3, (VITAMIN D3 ORAL) Take 5,000 Units by mouth once daily. sodium chloride (AYR, OCEAN) 0.65 % nasal spray Use 1 [place] in the nose as needed. therapeutic multivitamin (THERA VITAMIN) tablet Take 1 tablet by mouth once daily. 100 tablet 0 guaifenesin/dextromethorphan (MUCINEX DM ORAL) Take 1 tablet by mouth twice daily as needed. pravastatin 20 mg tablet Take 1 tablet by mouth every evening. 90 tablet 3 EPINEPHrine (EPIPEN) 0.3 mg/0.3 mL (1:1,000) PnIj Use as directed 1 Each 2 diphenhydramine hcl(BENADRYL 25 MG CAP) Take 100 mg by mouth as needed. 0 SOOTHE 1 %-4.5 % EYE DROPS PRN 0 OTC PRODUCT Hempvana Cream: One application as needed for pain. (Patient not taking: Reported on 01/18/2023) traZODone 50 mg tablet Take 2 tablets by mouth daily at bedtime. (Patient not taking: Reported on 01/18/2023) 180 tablet 3 montelukast 10 mg tablet Take 1 tablet by mouth daily at bedtime. (Patient not taking: Reported on 01/18/2023) 90 tablet 3 No current facility-administered medications for this visit. REVIEW OF SYSTEMS: Review of Systems Constitutional: Negative for chills, fatigue, fever and unexpected weight change. HENT: Negative for lump/mass, mouth sores and nosebleeds. Eyes: Negative for icterus. Respiratory: Negative for cough, hemoptysis and shortness of breath. Cardiovascular: Negative for chest pain and palpitations. Gastrointestinal: Negative for abdominal pain and blood in stool. Genitourinary: Negative for dysuria, frequency and hematuria. Skin: Negative for rash. Neurological: Negative for dizziness and numbness. Hematological: Negative for adenopathy. Does not bruise/bleed easily. Psychiatric/Behavioral: Positive for depression. Negative for confusion and decreased concentration. PHYSICAL EXAM: BP 127/69 Pulse 78 Temp 36.6 C (97.8 F) (Temporal) Wt 63.7 kg (140 lb 8 oz) SpO2 98% BMI 24.89 kg/m2 Body mass index is 24.89 kg/m . Estimated body surface area is 1.68 meters squared as calculated from the following: Height as of 07/21/22: 160 cm (5' 2.99 ). Weight as of this encounter: 63.7 kg (140 lb 8 oz). ECO- Restricted in physically strenuous activity. Carries out light duty. Physical Exam Vitals reviewed. Constitutional: Appearance: Normal appearance. She is normal weight. HENT: Head: Normocephalic and atraumatic. Eyes: Conjunctiva/sclera: Conjunctivae normal. Cardiovascular: Rate and Rhythm: Normal rate and regular rhythm. Pulmonary: Effort: Pulmonary effort is normal. No respiratory distress. Breath sounds: Normal breath sounds. No wheezing or rales. Abdominal: General: There is no distension. Palpations: Abdomen is soft. Tenderness: There is no abdominal tenderness. Musculoskeletal: General: Normal range of motion. Cervical back: Normal range of motion and neck supple. Right lower leg: No edema. Left lower leg: No edema. Skin: Findings: No lesion or rash. Neurological: General: No focal deficit present. Mental Status: She is alert and oriented to person, place, and time. Psychiatric: Mood and Affect: Mood normal. Behavior: Behavior normal. LABS: Latest Reference Range & Units 01/16/23 11:07 WBC 3.70 - 11.00 k/uL 5.38 RBC 3.90 - 5.20 m/uL 4.08 Hemoglobin 11.5 - 15.5 g/dL 13.3 Hematocrit 36.0 - 46.0 % 38.0 Platelet Count 150 - 400 k/uL 325 MCV 80.0 - 100.0 fL 93.1 MCH 26.0 - 34.0 pg 32.6 MCHC 30.5 - 36.0 g/dL 35.0 MPV 9.0 - 12.7 fL 8.7 (L) RDW-CV 11.5 - 15.0 % 14.0 DTYPE Auto Neut% % 74.2 Abs Neut (ANC) 1.45 - 7.50 k/uL 3.99 Lymph% % 13.6 Abs Lymph 1.00 - 4.00 k/uL 0.73 (L) Phelps% % 9.3 Abs Phelps <0.87 k/uL 0.50 Eosin% % 2.0 Abs Eosin <0.46 k/uL 0.11 Baso% % 0.7 Abs Baso <0.11 k/uL 0.04 Immature Gran % % 0.2 IMMATURE GRANS (ABS) <0.10 k/uL <0.03 NRBC /100 WBC 0.0 IMPRESSION: Elenita Haines is a 72 year old female with history of neutropenia and anemia secondary to LPL diagnosed in 2018. She has been treated with methotrexate subcu weekly injection, 32.5 mg. Her neutropenia and anemia have improved steadily, eventually resolved. Today her labs showed normal WBC, neutrophils, platelets, hemoglobin and hematocrit. 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 PLAN: She will come back in one year for f/u with repeat CBCD. Karan Monique MD cc: Barbie Pickens MD documented in this encounter [facility] 2022 Note HNO ID: [id number] Author: June Yun MD Service: ? Author Type: Physician Type: Progress Notes Filed: 2022 2:48 PM Note Text: PATIENT NAME: Elenita Haines. CLINIC NO: [id number]. ATTENDING PHYSICIAN: June Yun MD. DATE OF SERVICE: 2022 DIAGNOSIS: LGL large granular lymphocytic T-cell leukemia; seronegative inflammatory arthritis HPI:This is a 72-year-old lady with history of rheumatoid arthritis and fibromyalgia who presented with progressive anemia and severe neutropenia (Lymphocytosis). Patient presented with polyarthritis and stiffness 25 years ago and was seen for rheumatoid arthritis. She was previously treated with methotrexate, prednisone, Plaquenil, but has not had active treatment for many years since she stopped seeing rheumatology. She has been taking ibuprofen AND NSAIDs on a regular basis for her arthritis. Although she has no history of peptic ulcer disease, patient had a colonoscopy in 2015 with hemorrhoidal bleeding. She denied hematemesis or melena. Despite her neutropenia, patient has no recurrent infection of her sinus or lung. She has seasonal allergy with allergic rhinitis. She also had recurrent migraine headaches which improved after stopping chocolate and soda pop. Complained of increased fatigue and palpitation for the last several months. She has no shortness of breath, but had dyspnea and exertion. Patient denies frequent headaches or increase lethargy. Most recently, her CBC showed a lymphocytosis and severe neutropenia. She has no history of hepatitis, HIV, and no history of blood transfusion. She does not drink alcohol or smoke tobacco. No family history of leukemia, except father may have refractory anemia.Patient has no fever, chills but Occasional night sweats. She has not had any menstrual bleeding, or postmenopausal. No early satiety or jaundice. + Weight loss 8 lb In the last year. Her bone marrow evaluation was consistent with T CELL LARGE GRANULAR LYMPHOCYTIC LEUKEMIA, REPRESENTING 20% OF SLIGHTLY HYPERCELLULAR BONE MARROW FOR AGE (60%) WITH TRILINEAGE HEMATOPOIESIS. - MACROCYTIC ANEMIA. Current Treatment: Methotrexate 32.5mg IM weekly AND folic acid 1 mg daily Interim history: She has been doing well on methotrexate treatment for LGL leukemia. She denies stomatitis, diarrhea, fever, chills or weight loss. She has no sign of infection or bleeding. she denies nausea or vomiting, or diarrhea. She has no bloating, jaundice or early satiety. She still has severe stiffness and pain and swelling from her arthritis. She stopped Plaquenil because of upset stomach pain. All medications AND allergies updated and reviewed by me. REVIEW OF SYSTEMS: CONSTITUTIONAL: No fevers, chills, nightsweats, HEENT: Denies frequent or severe heaches, nasal congestion/sinus symptoms, problematic allergy problems. EYES: No diplopia or blurry vision. CARDIOVASCULAR: No chest pain, dyspnea with exertion, palpitations, no orthopnea, PND, ankle edema. PULM: No dyspnea, cough GI: No dysphagia/odynophagia, problematic reflux, constipation, diarrhea, changes in stool habits, hematochezia, melena. : No new urinary complaints, including dysuria, gross hematuria or pyuria. NEURO: No new balance problems, peripheral weakness/paresthesias or numbness of concern. MUSC-SKEL: + joint pain, swelling, and stiffness or erythema. PSY: No concerns regarding depression, anxiety or panic. INTEGUMENTARY: No new skin changes (rash, new or changing mole, new growth) PHYSICAL EXAMINATION:72-year-old well-nourished well-developed female in no distress Performance status 100% BP 129/64 Pulse 76 Temp 97.6 Ht 5' 2.992 (1.60m) Wt 139 lb (63.1kg) SpO2 96% BMI 24.63 kg/(m2). HEENT: Head is normocephalic, atraumatic. Sclerae white, conjunctivae pink. PEERL. EOMs are intact. Oropharynx is benign No thrush, exudate or ulcers. LYMPHATICS: There is no palpable adenopathy in the neck, supraclavicular region, axillae, or groin. LUNGS: Lungs are clear to percussion and auscultation. HEART: Heart is normal without murmurs, gallops, or rubs. ABDOMEN: Soft and nontender with active bowel sounds. No masses can be palpated. NO hepatosplenomegaly on exam. EXTREMITIES: Are without edema. + Arthritis changes on hands, feet and knees. NEUROLOGIC: Exam is physiologic LABORATORY DATA Component Latest Ref Rng AND Units 07/14/2022 WBC 3.70 - 11.00 k/uL 3.25 (L) RBC 3.90 - 5.20 m/uL 3.98 Hemoglobin 11.5 - 15.5 g/dL 13.1 Hematocrit 36.0 - 46.0 % 38.2 MCV 80.0 - 100.0 fL 96.0 MCH 26.0 - 34.0 pg 32.9 MCHC 30.5 - 36.0 g/dL 34.3 RDW-CV 11.5 - 15.0 % 14.0 Platelet Count 150 - 400 k/uL 250 MPV 9.0 - 12.7 fL 8.8 (L) Neut% % 52.1 Abs Neut (ANC) 1.45 - 7.50 k/uL 1.69 Lymph% % 36.6 Abs Lymph 1.00 - 4.00 k/uL 1.19 Phelps% % 9.5 Abs Phelps <0.87 k/uL 0.31 Eosin% % 0.3 Abs Eosin <0.46 k/uL <0.03 Baso% % 1.5 Abs Baso <0.11 k/u (more content not included)... [facility] 2022 History of Present illness Narrative PATIENT NAME: Elenita Haines. CLINIC NO: [id number]. ATTENDING PHYSICIAN: June Yun MD. DATE OF SERVICE: 2022 DIAGNOSIS: LGL large granular lymphocytic T-cell leukemia; seronegative inflammatory arthritis HPI:This is a 72-year-old lady with history of rheumatoid arthritis and fibromyalgia who presented with progressive anemia and severe neutropenia (Lymphocytosis). Patient presented with polyarthritis and stiffness 25 years ago and was seen for rheumatoid arthritis. She was previously treated with methotrexate, prednisone, Plaquenil, but has not had active treatment for many years since she stopped seeing rheumatology. She has been taking ibuprofen & NSAIDs on a regular basis for her arthritis. Although she has no history of peptic ulcer disease, patient had a colonoscopy in 2015 with hemorrhoidal bleeding. She denied hematemesis or melena. Despite her neutropenia, patient has no recurrent infection of her sinus or lung. She has seasonal allergy with allergic rhinitis. She also had recurrent migraine headaches which improved after stopping chocolate and soda pop. Complained of increased fatigue and palpitation for the last several months. She has no shortness of breath, but had dyspnea and exertion. Patient denies frequent headaches or increase lethargy. Most recently, her CBC showed a lymphocytosis and severe neutropenia. She has no history of hepatitis, HIV, and no history of blood transfusion. She does not drink alcohol or smoke tobacco. No family history of leukemia, except father may have refractory anemia.Patient has no fever, chills but Occasional night sweats. She has not had any menstrual bleeding, or postmenopausal. No early satiety or jaundice. + Weight loss 8 lb In the last year. Her bone marrow evaluation was consistent with T CELL LARGE GRANULAR LYMPHOCYTIC LEUKEMIA, REPRESENTING 20% OF SLIGHTLY HYPERCELLULAR BONE MARROW FOR AGE (60%) WITH TRILINEAGE HEMATOPOIESIS. - MACROCYTIC ANEMIA. Current Treatment: Methotrexate 32.5mg IM weekly & folic acid 1 mg daily Interim history: She has been doing well on methotrexate treatment for LGL leukemia. She denies stomatitis, diarrhea, fever, chills or weight loss. She has no sign of infection or bleeding. she denies nausea or vomiting, or diarrhea. She has no bloating, jaundice or early satiety. She still has severe stiffness and pain and swelling from her arthritis. She stopped Plaquenil because of upset stomach pain. All medications & allergies updated and reviewed by me. REVIEW OF SYSTEMS: CONSTITUTIONAL: No fevers, chills, nightsweats, HEENT: Denies frequent or severe heaches, nasal congestion/sinus symptoms, problematic allergy problems. EYES: No diplopia or blurry vision. CARDIOVASCULAR: No chest pain, dyspnea with exertion, palpitations, no orthopnea, PND, ankle edema. PULM: No dyspnea, cough GI: No dysphagia/odynophagia, problematic reflux, constipation, diarrhea, changes in stool habits, hematochezia, melena. : No new urinary complaints, including dysuria, gross hematuria or pyuria. NEURO: No new balance problems, peripheral weakness/paresthesias or numbness of concern. MUSC-SKEL: + joint pain, swelling, and stiffness or erythema. PSY: No concerns regarding depression, anxiety or panic. INTEGUMENTARY: No new skin changes (rash, new or changing mole, new growth) PHYSICAL EXAMINATION:72-year-old well-nourished well-developed female in no distress Performance status 100% BP 129/64 Pulse 76 Temp 97.6 Ht 5' 2.992 (1.60m) Wt 139 lb (63.1kg) SpO2 96% BMI 24.63 kg/(m^2). HEENT: Head is normocephalic, atraumatic. Sclerae white, conjunctivae pink. PEERL. EOMs are intact. Oropharynx is benign No thrush, exudate or ulcers. LYMPHATICS: There is no palpable adenopathy in the neck, supraclavicular region, axillae, or groin. LUNGS: Lungs are clear to percussion and auscultation. HEART: Heart is normal without murmurs, gallops, or rubs. ABDOMEN: Soft and nontender with active bowel sounds. No masses can be palpated. NO hepatosplenomegaly on exam. EXTREMITIES: Are without edema. + Arthritis changes on hands, feet and knees. NEUROLOGIC: Exam is physiologic LABORATORY DATA Component Latest Ref Rng & Units 07/14/2022 WBC 3.70 - 11.00 k/uL 3.25 (L) RBC 3.90 - 5.20 m/uL 3.98 Hemoglobin 11.5 - 15.5 g/dL 13.1 Hematocrit 36.0 - 46.0 % 38.2 MCV 80.0 - 100.0 fL 96.0 MCH 26.0 - 34.0 pg 32.9 MCHC 30.5 - 36.0 g/dL 34.3 RDW-CV 11.5 - 15.0 % 14.0 Platelet Count 150 - 400 k/uL 250 MPV 9.0 - 12.7 fL 8.8 (L) Neut% % 52.1 Abs Neut (ANC) 1.45 - 7.50 k/uL 1.69 Lymph% % 36.6 Abs Lymph 1.00 - 4.00 k/uL 1.19 Phelps% % 9.5 Abs Phelps <0.87 k/uL 0.31 Eosin% % 0.3 Abs Eosin <0.46 k/uL <0.03 Baso% % 1.5 Abs Baso <0.11 k/uL 0.05 Immature Gran % % 0.0 IMMATURE GRANS (ABS) <0.10 k/uL <0.03 NRBC /100 WBC 0.0 Absolute nRBC <0.01 k/uL <0.01 DTYPE Auto Component Latest Ref Rng & Units 07/14/2022 Protein, Total 6.3 - 8.0 g/dL 7.7 Albumin 3.9 - 4.9 g/dL 4.9 Calcium 8.5 - 10.2 mg/dL 9.3 Bilirubin, Total 0.2 - 1.3 mg/dL 0.3 Alkaline Phosphatase 34 - 123 U/L 61 AST 13 - 35 U/L 25 ALT 7 - 38 U/L 18 Glucose 74 - 99 mg/dL 95 BUN 7 - 21 mg/dL 11 Creatinine 0.58 - 0.96 mg/dL 0.70 Sodium 136 - 144 mmol/L 137 Potassium 3.7 - 5.1 mmol/L 3.6 (L) Chloride 97 - 105 mmol/L 98 CO2 22 - 30 mmol/L 30 Anion Gap 9 - 18 mmol/L 9 eGFR >=60 mL/min/1.73m 94 WSR 0 - 20 mm/hr 17 ASSESSMENT/PLAN: 70-year-old female with history of seronegative rheumatoid arthritis, neutropenia and anemia secondary to LGL leukemia 1) LGL leukemia - Anemia and neutropenia have improved since she started methotrexate. Plan: - Continue methotrexate 32.5 mg IM weekly and folic acid 1 mg daily. - Repeat CBC, CMP, and sedimentation rate OV in 6 months. 2) seronegative rheumatoid arthritis - arthritic pain despite methotrexate treatment. - No signs of liver or renal toxicity with methotrexate. Plan: -Continue methotrexate treatment -With occasional prednisone as needed for arthritis. -Follow-up with PCP or quality control for arthritic pain June Yun MD Cc; MD Radha Juares MD documented in this encounter [facility] 07-14-2022 Miscellaneous Notes CBC is fine. Continue methotrexate 32.5 mg IM weekly and folic acid 1 mg daily June Yun MD documented in this encounter [facility] 12-26-2021 History of Present illness Narrative Radiology Service Progress Note PATIENT NAME: Elenita Haines DATE OF SERVICE: December 26, 2021 TIME: 11:35 AM PATIENT IDENTITY VERIFICATION COMPLETED USING TWO (2) IDENTIFIERS: Name and Date of confirmed by patient verbally. FALL SCREENING: Has the patient had 2 falls in the last year or 1 fall with injury or currently using an Ambulatory Assistive Device (Walker, Cane, Wheelchair, Crutches, etc.)? No PATIENT GENDER DATA: Female. status: : No status: N/A PATIENT RELEVANT IMPLANT DATA REVIEWED: Not Applicable RADIOLOGY DEPARTMENT: Ultrasound PERIPHERAL IV DATA: Not applicable SIGNED BY: Marian Garzon RDMS RVT December 26, 2021 11:35 AM documented in this encounter [facility] Diagnosis Large granular lymphocytic leukemia (HCC)- Primary Other lymphoid leukemia, without mention of having achieved remission Rheumatoid arthritis 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) [facility] Diagnosis Large granular lymphocytic leukemia (HCC)- Primary Other lymphoid leukemia, without mention of having achieved remission Rheumatoid arthritis 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) [facility] Diagnosis Large granular lymphocytic leukemia (HCC)- Primary Other lymphoid leukemia, without mention of having achieved remission Anemia, unspecified type Neutropenia, unspecified type (HCC) [facility]ative[facility] Diagnostic Procedure Only (Routine) - Closed Specialty Diagnoses / Procedures Referred By Contac t Referred To Contact US IMAGING Diagnoses 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) Procedures US ABD RT UPPER QUADRANT ULTRASOUND-ABDOMINAL PC June Yun MD [address] [place] [address] Us Imaging Referral ID Status Reason Start Date Expiration Date V isits Requested Visits Authorized [id number] Closed Auto-Generate d Referral 12/16/2021 07/17/2022 1 1 [facility] Advance Directives No Advanced Directives Records FoundDocuments on File Type Date Recorded 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 Advance Directive(s) 02/13/2018 11:03 AM Summary Purpose Family History No Family History Records Found Additional Source Comments Source Comments (unrecognize d section and content) In the event this informatio n is protected by the Federal Confidentiality of Alcohol and Drug Abuse Patient Records regulations: The Federal rules restrict any use of the information to criminally investigate or prosecute any alcohol or drug abuse patient.[facility] the event this information is protected by the Federal Confidentiality of Alcohol and Drug Abuse Patient Records regulations: The Federal rules restrict any use of the information to criminally investigate or prosecute any alcohol or drug abuse patient.[facility] the event this information is protected by the Federal Confidentiality of Alcohol and Drug Abuse Patient Records regulations: The Federal rules restrict any use of the information to criminally investigate or prosecute any alcohol or drug abuse patient.[facility] the event this information is protected by the Federal Confidentiality of Alcohol and Drug Abuse Patient Records regulations: The Federal rules restrict any use of the information to criminally investigate or prosecute any alcohol or drug abuse patient.[facility] the event this information is protected by the Federal Confidentiality of Alcohol and Drug Abuse Patient Records regulations: The Federal rules restrict any use of the information to criminally investigate or prosecute any alcohol or drug abuse patient.[facility] Reason for Visit (unrecogniz ed section and content) Specialty Diagnoses / Procedures Referred By Clarisa martinez Referred To Contact US IMAGING Diagnoses 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) Procedures US ABD RT UPPER QUADRANT ULTRASOUND-ABDOMINAL PC June Yun MD [address] [place] [address] Us Imaging Referral ID Status Reason Start Date Expiration Date V isits Requested Visits Authorized [id number] Closed Auto-Generate d Referral 12/16/2021 07/17/2022 1 1 Reason Comments Results Reason Comments Established Patient Reason Comments 6 month check Care Teams (unrecognized sec tion and content) Channel Machine 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 Relationship Specialty Start Date End Date Barbie Pickens MD PCP - General Family Medicine 02/23/14 Wendy Felder RN Specialty Assistant Professor Sculpture Oncology 02/22/18 Radha Bonilla [address] [place] [address] Consulting Rheumatology 06/17/21 Channel Machine Operator Relationship Specialty Start Date End Date Barbie Pickens MD PCP - General Family Medicine 02/23/14 Wendy Felder RN Specialty Assistant Professor Sculpture Oncology 02/22/18 Radha Bonilla [address] [place] [address] Consulting Rheumatology 06/17/21 Channel Machine Operator Relationship Specialty Start Date End Date Barbie Pickens MD PCP - General Family Medicine 02/23/14 Wendy Felder RN Specialty Assistant Professor Sculpture Oncology 02/22/18 Radha Bonilla [address] [place] [address] Consulting Rheumatology 06/17/21 Channel Machine Operator Relationship Specialty Start Date End Date Barbie Pickens MD PCP - General Family Medicine 02/23/14 Wendy Felder, SHAWN Specialty Assistant Professor Sculpture Oncology 02/22/18 Radha Bonilla [address] [place] [address] Consulting Rheumatology 06/17/21 Lui Valerio MD [address], [place] [id number] Hematology/Oncology 01/18/23 INFORMATION SOURCE (unrecogn ized section and content) FOR RECORDS PERTAINING TO PATIENTS WHO ARE OR HAVE BEEN ENROLLED IN A CHEMICAL DEPENDENCY/SUBSTANCEABUSE PROGRAM, SOME INFORMATION MAY BE OMITTED. This clinical summary was aggregated from multiple sources. Caution should be exercised in using it in the provision of clinical care. This summary normalizes information from multiple sources, and as a consequence, information in this document may materially change the coding, format and clinical context of patient data. In addition, data may be omitted in some cases. CLINICAL DECISIONS SHOULD BE BASED ON THE PRIMARY CLINICAL RECORDS. [employer] provides no warranty or guarantee of the accuracy or completeness of information in this document.
== END | disposition home or self-care (01) ==
LOC: MTLAB 14:46
PROVIDERS: PCP Nurse Practitioner Family; Referring Provider Internal Medicine Rheumatology; Visit Provider Internal Medicine Rheumatology
DX: M06.09 Rheumatoid arthritis without rheumatoid factor, multiple sites (principal); M79.7 Fibromyalgia; Z79.899 Other long term (current) drug therapy
CPT/HCPCS: 36415; 80053; 85025

== ENCOUNTER → 2024-01-14 | Outpatient (CLI) | payer MEDICARE, OTHER, SELFPAY ==
[2024-01-14 12:33] LABS: Absolute Neutrophil Count 6.8 X10^3/uL (2.0-7.7); Basophil# 0.09 X10^3/uL; Eosinophil# 0.06 X10^3/uL; Eosinophils% 0.7 % (0-5); Hemoglobin 12.8 g/dL (12.0-15.0); Lymphocyte % 15.4 % (19-41); Mean Corp Hgb Conc 32.8 g/dL (32-36); Mean Corpuscular Hgb 32.4 pg (27.0-32.0); Mean Corpuscular Volume 98.7 fL (81-99); Mean Platelet Vol. 9.6 fl (6.2-12.0); Monocyte# 0.68 X10^3/uL; Monocyte% 7.5 % (0-10); NRBC Flagged by Analyzer 0 % (0-5); Neutrophil # 6.82 X10^3/uL (2.7-7.7); Platelet Count 323 K/mm3 (150-450); RBC Distribution Width CV 14.3 % (11.6-14.6); RBC Distribution Width SD 51.5 fl (35.1-43.9); Red Blood Count 3.95 M/mm3 (4.2-5.4); White Blood Count 9.1 K/mm3 (4.4-11.0)
[2024-01-14 12:39] LABS: ALB/GLOB Ratio 1.1 RATIO (0.9-2.4); AST(SGOT) 29 U/L (15-37); Alanine Aminotransfer ALT/SGPT 34 U/L (13-56); Albumin, Serum 3.9 g/dL (3.2-5.0); Alkaline Phosphatase 69 U/L (45-117); Anion Gap 4 (5-15); BUN 12 mg/dL (7-18); BUN/Creat Ratio 14.2 RATIO (10-20); Chloride 102 mmol/L (98-107); Creatinine, Serum 0.84 mg/dL (0.55-1.02); EST Glomerular Filtration Rate 71 mL/min (>60); Est Glom Filt Rate - Afr Amer 85 mL/min (>60); Globulin 3.7 g/dL (2.2-4.2); Glucose 116 mg/dL (74-106); Potassium 4.4 mmol/L (3.5-5.1); Protein, Total 7.6 g/dL (6.4-8.2); Sodium Level 138 mmol/L (136-145)
== END | disposition home or self-care (01) ==
LOC: MTLAB 11:02
PROVIDERS: PCP Nurse Practitioner Family; Referring Provider Internal Medicine Rheumatology; Visit Provider Internal Medicine Rheumatology
DX: M06.09 Rheumatoid arthritis without rheumatoid factor, multiple sites (principal); Z79.899 Other long term (current) drug therapy
CPT/HCPCS: 36415; 80053; 85025

== ENCOUNTER → 2024-02-13 | Outpatient (CLI) | payer MEDICARE, OTHER, SELFPAY ==
[2024-02-13 15:20] LABS: Absolute Lymphocyte Count 1.17 X10^3/uL (0.83-4.51); Absolute Neutrophil Count 4.1 X10^3/uL (2.0-7.7); Basophil# 0.07 X10^3/uL; Basophil% 1.2 % (0-1); Eosinophil# 0.03 X10^3/uL; Eosinophils% 0.5 % (0-5); Hematocrit 37.9 % (37-47); Hemoglobin 12.4 g/dL (12.0-15.0); Lymphocyte # 1.17 X10^3/ul (0.83-4.51); Lymphocyte % 19.4 % (19-41); Mean Corp Hgb Conc 32.7 g/dL (32-36); Mean Corpuscular Hgb 32.5 pg (27.0-32.0); Mean Corpuscular Volume 99.5 fL (81-99); Mean Platelet Vol. 9.5 fl (6.2-12.0); Monocyte# 0.62 X10^3/uL; Monocyte% 10.3 % (0-10); NRBC Flagged by Analyzer 0 % (0-5); Neutrophil # 4.12 X10^3/uL (2.7-7.7); Neutrophil % 68.3 % (47-70); Platelet Count 313 K/mm3 (150-450); RBC Distribution Width CV 14.7 % (11.6-14.6); Red Blood Count 3.81 M/mm3 (4.2-5.4)
[2024-02-13 15:39] LABS: Vitamin D,25 Hydroxy 61.8 ng/mL
[2024-02-13 16:06] LABS: ALB/GLOB Ratio 1.1 RATIO (0.9-2.4); AST(SGOT) 27 U/L (15-37); Alanine Aminotransfer ALT/SGPT 42 U/L (13-56); Alkaline Phosphatase 67 U/L (45-117); Anion Gap 6 (5-15); BUN 11 mg/dL (7-18); BUN/Creat Ratio 13.2 RATIO (10-20); Calcium,Total 9.2 mg/dL (8.5-10.1); Chloride 102 mmol/L (98-107); Cholesterol 168 mg/dL (200); Creatinine, Serum 0.83 mg/dL (0.55-1.02); EST Glomerular Filtration Rate 72 mL/min (>60); Est Glom Filt Rate - Afr Amer 87 mL/min (>60); Globulin 3.6 g/dL (2.2-4.2); Glucose 118 mg/dL (74-106); High Density Lipoprotein 50 mg/dL; Potassium 4.2 mmol/L (3.5-5.1); Protein, Total 7.6 g/dL (6.4-8.2); Sodium Level 136 mmol/L (136-145); T4 Free Direct 1.41 ng/dL (0.76-1.46); Thyroid Stim Hormone (TSH) 2.56 uIU/mL (0.358-3.74); Triglycerides 194 mg/dL; Very Low Density Lipoprotein 39 mg/dL (5-40)
== END | disposition home or self-care (01) ==
LOC: BFHLAB 11:17
PROVIDERS: PCP Nurse Practitioner Family; Referring Provider Nurse Practitioner Family; Visit Provider Nurse Practitioner Family
DX: I10 Essential (primary) hypertension (principal); E03.9 Hypothyroidism, unspecified; E78.1 Pure hyperglyceridemia; E55.9 Vitamin D deficiency, unspecified
CPT/HCPCS: 36415; 80053; 80061; 82306; 84439; 84443; 85025

== ENCOUNTER → 2024-04-09 | Outpatient (CLI) | payer MEDICARE, OTHER, SELFPAY ==
[2024-04-09 15:22] LABS: Absolute Lymphocyte Count 1.58 X10^3/uL (0.83-4.51); Absolute Neutrophil Count 4.5 X10^3/uL (2.0-7.7); Basophil# 0.09 X10^3/uL; Basophil% 1.3 % (0-1); Eosinophils% 1.4 % (0-5); Hematocrit 39.2 % (37-47); Lymphocyte # 1.58 X10^3/ul (0.83-4.51); Lymphocyte % 22.7 % (19-41); Mean Corp Hgb Conc 33.2 g/dL (32-36); Mean Corpuscular Hgb 32.5 pg (27.0-32.0); Mean Platelet Vol. 9.9 fl (6.2-12.0); Monocyte# 0.62 X10^3/uL; Monocyte% 8.9 % (0-10); NRBC Flagged by Analyzer 0 % (0-5); Neutrophil # 4.54 X10^3/uL (2.7-7.7); Neutrophil % 65.4 % (47-70); Platelet Count 340 K/mm3 (150-450); RBC Distribution Width CV 14.8 % (11.6-14.6); RBC Distribution Width SD 53.1 fl (35.1-43.9)
[2024-04-09 15:48] LABS: ALB/GLOB Ratio 1.1 RATIO (0.9-2.4); AST(SGOT) 25 U/L (15-37); Alanine Aminotransfer ALT/SGPT 27 U/L (13-56); Albumin, Serum 4.3 g/dL (3.2-5.0); Alkaline Phosphatase 66 U/L (45-117); Anion Gap 7 (5-15); BUN 17 mg/dL (7-18); BUN/Creat Ratio 21.3 RATIO (10-20); Calcium,Total 9.8 mg/dL (8.5-10.1); Chloride 100 mmol/L (98-107); EST Glomerular Filtration Rate 75 mL/min (>60); Est Glom Filt Rate - Afr Amer 91 mL/min (>60); Globulin 3.8 g/dL (2.2-4.2); Glucose 114 mg/dL (74-106); Potassium 4.2 mmol/L (3.5-5.1); Protein, Total 8.1 g/dL (6.4-8.2); Sodium Level 136 mmol/L (136-145)
== END | disposition home or self-care (01) ==
PROVIDERS: PCP Nurse Practitioner Family; Referring Provider Internal Medicine Rheumatology; Visit Provider Internal Medicine Rheumatology
DX: M06.09 Rheumatoid arthritis without rheumatoid factor, multiple sites (principal); M79.7 Fibromyalgia; Z79.899 Other long term (current) drug therapy
CPT/HCPCS: 36415; 80053; 85025

== ENCOUNTER → 2024-04-17 | Outpatient (CLI) | payer MEDICARE, OTHER, SELFPAY ==
--- NOTE | 2024-04-17 10:33 | RAD_ITS ---
STUDY: X-RAY - LEFT KNEE REASON FOR EXAM: Female, 73 years old. Bilateral primary osteoarthritis of knee TECHNIQUE: 4 views of the left knee. COMPARISON: None. FINDINGS: Normal visualized distal femur. Normal visualized proximal tibia and fibula. Normal proximal tibiofibular articulation. There is no demonstrated fracture. There is mild degenerative arthrosis of the medial femorotibial compartment. There is mild degenerative arthrosis of the lateral femorotibial compartment. There is mild degenerative arthrosis of the patellofemoral articulation. There is chondrocalcinosis of the medial and lateral menisci. There is a suspected 7 mm calcified loose body located medial to the medial tibial plateau. There is a small left knee joint effusion. The soft tissue structures are unremarkable. RAD/Knee 4 or More Views IMPRESSION: Mild tricompartment degenerative arthrosis. Small knee joint effusion. Suspected 7 mm calcified loose body located medial to the medial tibial plateau. Electronically Signed: Fantasma Gan MD at 15:10 EDT ,
--- NOTE | 2024-04-17 10:35 | RAD_ITS ---
STUDY: X-RAY - RIGHT KNEE REASON FOR EXAM: Female, 73 years old. Bilateral primary osteoarthritis of knee. TECHNIQUE: 4 views of the right knee. COMPARISON: None. FINDINGS: Normal visualized distal femur. Normal visualized proximal tibia and fibula. Normal proximal tibiofibular articulation. There is no demonstrated fracture. There is moderate degenerative arthrosis of the medial femorotibial compartment with moderate joint space narrowing. There is mild degenerative arthrosis of the lateral femorotibial compartment. There is mild degenerative arthrosis of the patellofemoral articulation. There is a moderate volume joint effusion. The soft tissue structures are unremarkable. RAD/Knee 4 or More Views IMPRESSION: Tricompartment degenerative arthrosis, most pronounced in the medial femorotibial compartment. Moderate joint effusion. No demonstrated fracture. Electronically Signed: Fantasma Gan MD at 11:57 EDT ,
== END | disposition home or self-care (01) ==
LOC: MTLAB 10:32 → MTRAD 10:33
PROVIDERS: PCP Nurse Practitioner Family; Referring Provider Internal Medicine Rheumatology; Visit Provider Internal Medicine Rheumatology
DX: M06.09 Rheumatoid arthritis without rheumatoid factor, multiple sites (principal); M79.7 Fibromyalgia; M17.0 Bilateral primary osteoarthritis of knee; Z79.899 Other long term (current) drug therapy
CPT/HCPCS: 73564

== ENCOUNTER → 2024-06-30 | Outpatient (CLI) | payer MEDICARE, OTHER, SELFPAY ==
[2024-06-30 15:26] LABS: Absolute Lymphocyte Count 1.77 X10^3/uL (0.83-4.51); Absolute Neutrophil Count 3.9 X10^3/uL (2.0-7.7); Basophil# 0.11 X10^3/uL; Basophil% 1.7 % (0-1); Eosinophil# 0.09 X10^3/uL; Eosinophils% 1.4 % (0-5); Hematocrit 39.7 % (37-47); Hemoglobin 13.4 g/dL (12.0-15.0); Lymphocyte # 1.77 X10^3/ul (0.83-4.51); Lymphocyte % 27.5 % (19-41); Mean Corp Hgb Conc 33.8 g/dL (32-36); Mean Corpuscular Hgb 32.8 pg (27.0-32.0); Mean Corpuscular Volume 97.3 fL (81-99); Monocyte# 0.59 X10^3/uL; Monocyte% 9.2 % (0-10); NRBC Flagged by Analyzer 0 % (0-5); Neutrophil # 3.86 X10^3/uL (2.7-7.7); Platelet Count 330 K/mm3 (150-450); RBC Distribution Width CV 13.4 % (11.6-14.6); RBC Distribution Width SD 47.9 fl (35.1-43.9); Red Blood Count 4.08 M/mm3 (4.2-5.4); White Blood Count 6.4 K/mm3 (4.4-11.0)
[2024-06-30 15:56] LABS: ALB/GLOB Ratio 1.1 RATIO (0.9-2.4); AST(SGOT) 18 U/L (15-37); Alanine Aminotransfer ALT/SGPT 31 U/L (13-56); Albumin, Serum 4.1 g/dL (3.2-5.0); Alkaline Phosphatase 68 U/L (45-117); Anion Gap 5 (5-15); BUN 12 mg/dL (7-18); BUN/Creat Ratio 14.3 RATIO (10-20); Calcium,Total 10.2 mg/dL (8.5-10.1); Chloride 102 mmol/L (98-107); Creatinine, Serum 0.84 mg/dL (0.55-1.02); EST Glomerular Filtration Rate 71 mL/min (>60); Est Glom Filt Rate - Afr Amer 86 mL/min (>60); Globulin 3.9 g/dL (2.2-4.2); Glucose 104 mg/dL (74-106); Potassium 3.8 mmol/L (3.5-5.1); Sodium Level 136 mmol/L (136-145)
== END | disposition home or self-care (01) ==
PROVIDERS: PCP Nurse Practitioner Family; Referring Provider Internal Medicine Rheumatology; Visit Provider Internal Medicine Rheumatology
DX: M06.09 Rheumatoid arthritis without rheumatoid factor, multiple sites (principal); Z79.899 Other long term (current) drug therapy; M79.7 Fibromyalgia; M17.0 Bilateral primary osteoarthritis of knee
CPT/HCPCS: 36415; 80053; 85025

== ENCOUNTER → 2024-07-10 | Outpatient (CLI) | payer MEDICARE, OTHER, SELFPAY ==
--- NOTE | 2024-07-10 13:43 | BI_ITS ---
MAMMOGRAPHY - BILATERAL SCREENING REASON FOR EXAM: Female, 73 years old. Routine annual screening examination. PERTINENT HISTORY: Non-contributory. TECHNIQUE: Digital bilateral breast ajith (3D mammographic acquisition) in the CC and MLO projections. 2-D mediolateral oblique (MLO) and craniocaudad (CC) views of both breasts were obtained. CAD: Full Field Digital Mammography with Computer Added Detection was performed. COMPARISON: Comparison is made with prior study dated February 09, 2023 and February 08, 2022. FINDINGS: Breast Composition: The breasts are heterogeneously dense, which may obscure small masses. There are no dominant masses or suspicious calcifications. No other significant abnormalities are identified. There has been no significant change since the prior study. BI/SCRN MAMM (CAD)W/AJITH BILAT IMPRESSION: Stable bilateral screening mammogram. Yearly follow-up mammogram recommended. (A) ASSESSMENT CATEGORY: BIRADS Category 1: Negative. A letter regarding these results will be sent to the patient by the facility within 30 days. Approximately 10% of breast cancers are not detected by mammography. A normal mammogram should not delay biopsy of a clinically suspicious abnormality. [id number] Electronically Signed: James Chávez MD at 14:19 EDT ,
== END | disposition home or self-care (01) ==
LOC: OPBI 13:38
PROVIDERS: PCP Nurse Practitioner Family; Referring Provider Nurse Practitioner Family; Visit Provider Nurse Practitioner Family
DX: Z12.31 Encounter for screening mammogram for malignant neoplasm of breast (principal)
CPT/HCPCS: 77063; 77067

== ENCOUNTER → 2024-09-26 | Outpatient (CLI) | payer MEDICARE, OTHER, SELFPAY ==
[2024-09-26 15:13] LABS: Absolute Lymphocyte Count 1.69 X10^3/uL (0.83-4.51); Absolute Neutrophil Count 4.7 X10^3/uL (2.0-7.7); Basophil% 1.4 % (0-1); Eosinophil# 0.08 X10^3/uL; Eosinophils% 1.1 % (0-5); Hematocrit 41.2 % (37-47); Hemoglobin 13.3 g/dL (12.0-15.0); Lymphocyte # 1.69 X10^3/ul (0.83-4.51); Lymphocyte % 23.6 % (19-41); Mean Corp Hgb Conc 32.3 g/dL (32-36); Mean Corpuscular Hgb 31.6 pg (27.0-32.0); Mean Corpuscular Volume 97.9 fL (81-99); Mean Platelet Vol. 9.6 fl (6.2-12.0); Monocyte# 0.59 X10^3/uL; Monocyte% 8.2 % (0-10); NRBC Flagged by Analyzer 0 % (0-5); Neutrophil # 4.69 X10^3/uL (2.7-7.7); Neutrophil % 65.4 % (47-70); Platelet Count 415 K/mm3 (150-450); RBC Distribution Width SD 53.7 fl (35.1-43.9); Red Blood Count 4.21 M/mm3 (4.2-5.4); White Blood Count 7.2 K/mm3 (4.4-11.0)
[2024-09-26 15:41] LABS: AST(SGOT) 19 U/L (15-37); Alanine Aminotransfer ALT/SGPT 26 U/L (13-56); Albumin, Serum 4.1 g/dL (3.2-5.0); Alkaline Phosphatase 85 U/L (45-117); Anion Gap 7 (5-15); BUN 12 mg/dL (7-18); BUN/Creat Ratio 13.7 RATIO (10-20); Calcium,Total 9.8 mg/dL (8.5-10.1); Chloride 102 mmol/L (98-107); Creatinine, Serum 0.88 mg/dL (0.55-1.02); EST Glomerular Filtration Rate 67 mL/min (>60); Est Glom Filt Rate - Afr Amer 81 mL/min (>60); Glucose 116 mg/dL (74-106); Potassium 3.6 mmol/L (3.5-5.1); Protein, Total 8.1 g/dL (6.4-8.2); Sodium Level 138 mmol/L (136-145)
== END | disposition home or self-care (01) ==
LOC: MTLAB 12:45
PROVIDERS: PCP Nurse Practitioner Family; Referring Provider Internal Medicine Rheumatology; Visit Provider Internal Medicine Rheumatology
DX: M06.00 Rheumatoid arthritis without rheumatoid factor, unspecified site (principal); Z79.899 Other long term (current) drug therapy; M79.7 Fibromyalgia
CPT/HCPCS: 36415; 80053; 85025

== ENCOUNTER → 2024-12-16 | Outpatient (CLI) | payer MEDICARE, OTHER, SELFPAY ==
[2024-12-16 14:57] LABS: Absolute Lymphocyte Count 1.18 X10^3/uL (0.83-4.51); Absolute Neutrophil Count 4.8 X10^3/uL (2.0-7.7); Basophil# 0.08 X10^3/uL; Basophil% 1.2 % (0-1); Eosinophils% 1.5 % (0-5); Hematocrit 40.2 % (37-47); Hemoglobin 13.5 g/dL (12.0-15.0); Lymphocyte # 1.18 X10^3/ul (0.83-4.51); Lymphocyte % 17.8 % (19-41); Mean Corp Hgb Conc 33.6 g/dL (32-36); Mean Corpuscular Hgb 32.2 pg (27.0-32.0); Mean Corpuscular Volume 95.9 fL (81-99); Monocyte# 0.43 X10^3/uL; Monocyte% 6.5 % (0-10); NRBC Flagged by Analyzer 0 % (0-5); Neutrophil # 4.81 X10^3/uL (2.7-7.7); Neutrophil % 72.7 % (47-70); Platelet Count 325 K/mm3 (150-450); RBC Distribution Width CV 14.3 % (11.6-14.6); RBC Distribution Width SD 49.9 fl (35.1-43.9); Red Blood Count 4.19 M/mm3 (4.2-5.4); White Blood Count 6.6 K/mm3 (4.4-11.0)
[2024-12-16 15:24] LABS: ALB/GLOB Ratio 1.5 RATIO (0.9-2.4); AST(SGOT) 33 U/L (<=31); Alanine Aminotransfer ALT/SGPT 29 U/L (<=34); Albumin, Serum 4.7 g/dL (3.4-4.8); Alkaline Phosphatase 68 U/L (35-104); Anion Gap 13 (5-15); BUN 14 mg/dL (4-19); BUN/Creat Ratio 17.7 RATIO (10-20); Carbon Dioxide 26.8 mmol/L (21.0-32.0); Chloride 99 mmol/L (98-108); Creatinine, Serum 0.78 mg/dL (0.70-1.20); EST Glomerular Filtration Rate 81 (>60); Globulin 3.1 g/dL (2.2-4.2); Glucose 124 mg/dL (70-99); Protein, Total 7.9 g/dL (5.9-8.4); Sodium Level 138 mmol/L (133-145); Total Bilirubin 0.31 mg/dL (0.00-1.30)
== END | disposition home or self-care (01) ==
PROVIDERS: PCP Nurse Practitioner Family; Referring Provider Internal Medicine Rheumatology; Visit Provider Internal Medicine Rheumatology
DX: M06.00 Rheumatoid arthritis without rheumatoid factor, unspecified site (principal); Z79.899 Other long term (current) drug therapy; M79.7 Fibromyalgia
CPT/HCPCS: 36415; 80053; 85025

== ENCOUNTER → 2025-02-17 | Outpatient (CLI) | payer MEDICARE, OTHER, SELFPAY ==
[2025-02-17 12:22] LABS: Absolute Lymphocyte Count 2.23 X10^3/uL (0.83-4.51); Absolute Neutrophil Count 4.1 X10^3/uL (2.0-7.7); Basophil# 0.18 X10^3/uL; Basophil% 2.5 % (0-1); Eosinophil# 0.09 X10^3/uL; Eosinophils% 1.2 % (0-5); Hemoglobin 13.3 g/dL (12.0-15.0); Lymphocyte # 2.23 X10^3/ul (0.83-4.51); Lymphocyte % 30.6 % (19-41); Mean Corp Hgb Conc 34.1 g/dL (32-36); Mean Corpuscular Hgb 32.8 pg (27.0-32.0); Mean Corpuscular Volume 96.1 fL (81-99); Mean Platelet Vol. 9.4 fl (6.2-12.0); Monocyte# 0.69 X10^3/uL; Monocyte% 9.5 % (0-10); NRBC Flagged by Analyzer 0 % (0-5); Neutrophil # 4.07 X10^3/uL (2.7-7.7); Neutrophil % 55.8 % (47-70); Platelet Count 370 K/mm3 (150-450); RBC Distribution Width SD 49.5 fl (35.1-43.9); Red Blood Count 4.06 M/mm3 (4.2-5.4); White Blood Count 7.3 K/mm3 (4.4-11.0)
[2025-02-17 13:06] LABS: ALB/GLOB Ratio 1.5 RATIO (0.9-2.4); AST(SGOT) 25 U/L (<=31); Alanine Aminotransfer ALT/SGPT 21 U/L (<=34); Albumin, Serum 4.6 g/dL (3.4-4.8); Alkaline Phosphatase 67 U/L (35-104); Anion Gap 11 (5-15); BUN 17 mg/dL (4-19); BUN/Creat Ratio 21.2 RATIO (10-20); Calcium,Total 10.3 mg/dL (7.6-11.0); Carbon Dioxide 27.8 mmol/L (21.0-32.0); Chloride 100 mmol/L (98-108); Cholesterol 181 mg/dL (<=200); Creatinine, Serum 0.78 mg/dL (0.70-1.20); EST Glomerular Filtration Rate 81 (>60); Globulin 3.1 g/dL (2.2-4.2); Glucose 103 mg/dL (70-99); High Density Lipoprotein 52 mg/dL; Low Density Lipoprotein Calc. 88 mg/dL; Protein, Total 7.6 g/dL (5.9-8.4); Sodium Level 139 mmol/L (133-145); Triglycerides 206 mg/dL; Very Low Density Lipoprotein 41 mg/dL (5-40); Vitamin D,25 Hydroxy 87.9 ng/mL (30-100); cholesterol:hdl ratio screen 3.51
== END | disposition home or self-care (01) ==
LOC: BFHLAB 10:10
PROVIDERS: PCP Nurse Practitioner Family; Visit Provider Nurse Practitioner Family
DX: E03.9 Hypothyroidism, unspecified (principal); E78.1 Pure hyperglyceridemia; E55.9 Vitamin D deficiency, unspecified; I10 Essential (primary) hypertension
CPT/HCPCS: 36415; 80053; 80061; 82306; 84439; 84443; 85025

== ENCOUNTER → 2025-02-26 | Outpatient (CLI) | payer MEDICARE, OTHER, SELFPAY ==
--- NOTE | 2025-02-26 10:09 | BD_ITS ---
PROCEDURE: DEXA BONE DENSITY STUDY 02/26/2025 REASON FOR EXAM: F, age 74 y/o . Postmenopausal. TECHNIQUE: DEXA BONE DENSITY STUDY COMPARISON: Prior study dated February 14, 2022. FINDINGS: BMD and T-SCORES Lumbar spine: 1.013 g/cm2, T-score -0.8 Levels: L1 through L4 Change from prior: Loss of 0.8%. Left femoral neck: 0.730 g/cm2, T-score -1.1 Femoral neck comparison data not recommended for monitoring change. Left total hip: 0.948 g/cm2, T-score 0.0 Change from prior: Loss of 3.8%. Right femoral neck: 0.747 g/cm2, T-score -0.9 Femoral neck comparison data not recommended for monitoring change. Right total hip: 0.932 g/cm2, T-score -0.1 Change from prior: Loss of 4.8%. The World Health Organization has defined the following categories based on bone density: Normal bone density: T-score equal to or greater than -1.0 Osteopenia: T-score between -1.0 and -2.5 Osteoporosis: T-score equal to or less than -2.5 The patient does meet the pharmacological treatment recommendations for prevention of osteoporosis. BD/Dexa Bone Density Study IMPRESSION: OSTEOPENIA. Recommend follow-up as clinically warranted. Reading Location: [place] [id number]
--- OUTSIDE RECORDS SUMMARY | 2025-02-26 10:53 | XMS RPT_ITS | CCD ---
Author Organization [facility] Care Team Providers Care Clinical Support Nurse Name Role Phone Celio FRANCO, Barbie Oliver Primary Care Provider [phone] Bradford ESCOBAR, Wendy Unavailable Unavailable Vellanki, Radha L Unavailable Celio FRANCO, Barbie Oliver Primary Care Provider [phone] Bradford RN, Wendy Unavailable Unavailable Vellanki, Radha L Unavailable Lui Ferris MD Unavailable Celio FRANCO, Barbie Oliver Primary Care Provider [phone] Bradford ESCOBAR, Wendy Unavailable Unavailable Vellanki, Radha L Unavailable BARBIE PICKENS Primary Care Unavailable LUI FERRIS Referring Unavailable LUI FERRIS Attending Unavailable BARBIE PICKENS Primary Care Unavailable LUI FERRIS Referring Unavailable Albert MANAGER TERMINAL-C, Galilea Primary Care Provider [phone] Rdaha Bonilla MD Attending Provider Dr. Radha Bonilla MD Referring Provider Albert MANAGER TERMINAL-C, Galilea Primary Care Provider Dr. Radha Bonilla MD Attending Provider Dr. Radha Bonilla MD Referring Provider Albert MANAGER TERMINAL-C, Galilea Attending Provider Albert, Galilea Attending Unavailable Albert, Galilea Referring Unavailable Albert, Galilea Primary Care Unavailable Radha Bonilla Attending Unavailable Albert, Galilea Primary Care Unavailable Radha Bonilla Referring Unavailable Albert, Galilea Attending Unavailable Albert, Galilea Referring Unavailable Albert, Galilea Primary Care Unavailable Vellanki, Radha Attending Unavailable Albert, Galilea Primary Care Unavailable Vellanki, Radha Referring Unavailable Vellanki, Radha Attending Unavailable Albert, Galilea Primary Care Unavailable Vellanki, Radha Referring Unavailable Vellanki, Radha Referring Unavailable Vellanki, Radha Attending Unavailable Albert, [place] Primary Care Unavailable Vellanki, Radha Referring Unavailable Vellanki, Radha Attending Unavailable Albert, Galilea Primary Care Unavailable Albert, [place] Attending Unavailable Albert, [place] Primary Care Unavailable Allergies Allergy Classification Reported Allergen(s) Allergy Type Date of Onset Reaction(s) Facility (7 sources) Adhesive Tape; Translations: [ADHESIVE TAPE (ROSINS)] Allergy to substance 8 Rash, Itching, Other: See Comments [facility] (7 sources) Dust; Translations: [DUST] Propensity to adverse reactions 6 [facility] Work Phone: (7 sources) Grass pollen; Translations: [GRASS POLLEN] Propensity to adverse reactions 6 [facility] Work Phone: (7 sources) Latex; Translations: [LATEX] Propensity to adverse reactions 9 [facility] (7 sources) Mold Extract; Translations: [MOLD] Drug Allergy 6 [facility] Work Phone: (7 sources) Orphenadrine; Translations: [ORPHENADRINE] Drug Allergy 6 [facility] Work Phone: (6 sources) Penicillins; Translations: [PENICILLINS] Propensity to adverse reactions 6 Rash [facility] Work Phone: (11 sources) Sulfonamides (Antibiotic); Translations: [SULFA (SULFONAMIDE ANTIBIOTICS)] Propensity to adverse reactions 6 Fever and skin rash [facility] Work Phone: (6 sources) Tetracycline (class of antibiotic); Translations: [TETRACYCLINES] Propensity to adverse reactions 7 Anaphylaxis [facility] Work Phone: (7 sources) Animal Dander; Translations: [ANIMAL DANDER] Propensity to adverse reactions 6 [facility] Work Phone: (6 sources) bandaids [Other] Propensity to adverse reactions 6 [facility] Work Phone: (7 sources) Bees; Translations: [BEES] Propensity to adverse reactions 6 [facility] Work Phone: (6 sources) emyacin [Other] Propensity to adverse reactions 6 [facility] Work Phone: (6 sources) flu vaccine [Other] Propensity to adverse reactions 6 Unknown [facility] (7 sources) Iodinated Contrast Media; Translations: [IODINATED CONTRAST MEDIA] Drug Allergy 8 GI Upset [facility] (7 sources) Mildew; Translations: [MILDEW] Propensity to adverse reactions 6 [facility] Work Phone: (7 sources) Ragweed; Translations: [RAGWEED] Propensity to adverse reactions 6 [facility] Work Phone: (6 sources) Tetanus Vaccines And Toxoid; Translations: [TETANUS VACCINES AND TOXOID] Propensity to adverse reactions 6 Fever and skin rash [facility] Work Phone: (15 sources) venom-honey bee Allergy to substance 4 Shortness of breath [facility] (5 sources) FLU SHOT Allergy to substance 4 Fever and skin rash [facility] Work Phone: (16 sources) MUSCLE RELAXANTS; Translations: [MUSCLE RELAXANTS] Propensity to adverse reactions 4 Nausea/Vom/Lesvia rrhea [facility] (11 sources) Penicillins Allergy to substance 4 Rash [facility] (11 sources) Sulfonamides (Antibiotic) Allergy to substance 4 Fever and skin rash [facility] (11 sources) Tetracyclines Allergy to substance 4 Anaphylaxis [facility] (11 sources) Tetanus Vaccines and Toxoid Propensity to adverse reactions 4 Fever and skin rash [facility] (5 sources) Penicillins Propensity to adverse reactions 6 [facility] Work Phone: (5 sources) Tetracycline (class of antibiotic) Propensity to adverse reactions 7 [facility] Work Phone: (5 sources) Tetanus Vaccines And Toxoid Propensity to adverse reactions 6 [facility] Work Phone: (10 sources) Influenza Vaccines Propensity to adverse reactions 2 Fever and skin rash [facility] (1 source) OTHER; Translations: [OTHER] Propensity to adverse reactions (disorder) 6 [facility] (1 source) Penicillins Drug allergy (disorder) 4 [facility] (1 source) Sulfonamides (Antibiotic) Drug allergy (disorder) 4 [facility] (1 source) Tetracyclines Drug allergy (disorder) 4 [facility] (1 source) Influenza Virus Vaccines Drug allergy (disorder) 2 [facility] (1 source) Tetanus Vaccines and Toxoid Drug allergy (disorder) 4 [facility] (1 source) venom-honey bee Drug allergy (disorder) 4 [facility] Medications Current Medications Medication Drug Class(es) Dates Sig (Normalized) Sig (Original) acetaminophen 500 mg oral tablet (6 sources) acetaminophen (TYLENOL) 500 mg tablet Take 500 mg by mouth as needed. 0 Active Comment on above: Take 500 mg by mouth as needed. acetaminophen 325 mg / butalbital 50 mg / caffeine 40 mg oral tablet (15 sources) Barbiturate, Central Nervous System Stimulant, Methylxanthine Start: 03-17-2014 Butalbital-Acetami nophen-Caff 1 EACH tablet Active 1 NMA PO EVERY 4 HOURS NEEDED as needed for Pain March 17, 2014 12:00am Start: 03-17-2014 Butalbital-Dev taminophen-Caff Active 1 EACH PO EVERY 4 HOURS NEEDED March 17, 2014 12:00am Albuterol Sulfate (13 sources) beta2-Adrenergic Agonist Start: 03-17-2014 take 6.7 g by inhalation every four hours Albuterol Sulfate (Proventil Hfa) 6.7 GM Hfa.Aer.Ad Active 6.7 GM IH Q4H March 17, 2014 9:32am Start: 03-17-2014 Albuterol Sulf ate (Proventil Hfa) 6.7 GM HFA aerosol inhaler Active 6.7 g IH Q4H as needed for Wheezing March 17, 2014 12:00am Start: 03-17-2014 Albuterol Sulf ate (Proventil Hfa) 6.7 GM HFA aerosol inhaler Active 6.7 GM IH Q4H March 16, 2014 11:00pm Start: 03-17-2014 Albuterol Sulf ate (Proventil Hfa) 6.7 GM HFA aerosol inhaler Active 6.7 GM IH Q4H March 17, 2014 12:00am Albuterol Sulfate (Proventil Hfa) 6.7 GM Hfa.Aer.Ad (2 sources) Start: 03-17-2014 take 6.7 g by inhalation every four hours Albuterol Sulfate (Proventil Hfa) 6.7 GM Hfa.Aer.Ad Active 6.7 GM IH Q4H March 16, 2014 11:00pm Start: 03-17-2014 take 6.7 g by inhala tion every four hours Albuterol Sulfate (Proventil Hfa) 6.7 GM Hfa.Aer.Ad Active 6.7 GM IH Q4H March 17, 2014 12:00am cholecalciferol, vitamin D3, (VITAMIN D3 ORAL) (6 sources) take 5000 [IU] by mouth once daily cholecalciferol, vitamin D3, (VITAMIN D3 ORAL) Take 5,000 Units by mouth once daily. 0 Active Comment on above: Take 5,000 Units by mouth once daily. diphenhydrAMINE hydrochloride 25 mg oral capsule (6 sources) Histamine-1 Receptor Antagonist Start: 020 diphenhydramine hcl(BENADRYL 25 MG CAP) Take 100 mg by mouth as needed. 0 06/29/2020 Active Comment on above: Take 100 mg by mouth as needed. [id number] 0.3 ml EPINEPHrine 1 mg/ml auto-injector (6 sources) alpha-Adrenergic Agonist, beta-Adrenergic Agonist, Catecholamine Start: 013 EPINEPHrine (EPIPEN) 0.3 mg/0.3 mL (1:1,000) PnIj Indications: Bee sting allergy Use as directed 1 Each 2 02/21/2013 Active Comment on above: Use as directed folic acid 0.8 mg oral tablet (6 sources) take 1 tablet by mouth once daily folic acid 800 mcg tablet Take 800 mcg by mouth once daily. 0 Active Comment on above: Take 800 mcg by mout h once daily. gabapentin 100 mg oral capsule (6 sources) Anti-epileptic Agent take 1 capsule by mouth three times daily gabapentin (NEURONTIN) 100 mg capsule Take 100 mg by mouth three times daily. 0 Active Comment on above: Take 100 mg by mouth three times daily. guaifenesin/dextrometho rphan (MUCINEX DM ORAL) (6 sources) take 1 tablet by mouth twice daily as needed guaifenesin/dextrometh orphan (MUCINEX DM ORAL) Indications: Migraine without aura and without status migrainosus, not intractable , Rheumatoid arthritis involving both wrists, unspecified rheumatoid factor presence , Other neutropenia (HCC) , Anemia of chronic disease Take 1 tablet by mouth twice daily as needed. 0 Active Comment on above: Take 1 tablet by christy th twice daily as needed. ketoconazole 20 mg/ml topical cream (15 sources) Azole Antifungal Start: 014 Ketoconazole 15 GM cream Active 1 NMA TOPICAL NEEDED as needed for Rash/Topical Irritation March 17, 2014 12:00am Start: 03-17-2014 Ketoconazole A ctive 1 APPLIC TOPICAL NEEDED March 17, 2014 12:00am latanoprost 0.05 mg/ml ophthalmic solution (2 sources) Prostaglandin Analog take 1 drop(s) into the eye(s) once daily at bedtime latanoprost (XALATAN) 0.005 % ophthalmic solution Use 1 Drop in both eyes daily at bedtime. 0 Active take 1 drop(s) into the eye(s) once daily at bedtime latanoprost (XALATAN) 0.005 % ophthalmic solution 1 Drop daily at bedtime. 0 Active Comment on above: 1 Drop daily at bedt arjun. leucovorin 15 mg oral tablet (1 source) Folate Analog take 1 tablet by mouth every week leucovorin (LEUCOVORIN) 15 mg tablet Take 15 mg by mouth one time a week. 0 Active levothyroxine sodium 0.088 mg oral tablet (20 sources) l-Thyroxine Start: 07-08-201 4 take 1 tablet by mouth once daily Levothyroxine 88 MCG tablet Active 88 ug PO DAILY March 17, 2014 12:00am take 1 tablet by mouth once connie y levothyroxine (SYNTHROID) 75 mcg tablet Take 75 mcg by mouth once daily. 0 Active take 1 tablet by mouth once connie y levothyroxine (SYNTHROID) 100 mcg tablet Take 100 mcg by mouth once daily. 0 Active Comment on above: Take 100 mcg by mout h once daily. Take 75 mcg by mouth once daily. mineral oil 45 mg/ml / mineral oil, light 10 mg/ml ophthalmic solution (6 sources) Start: 10-19-2006 SOOTHE 1 %-4.5 % EYE DROPS Use 1 Drop in both eyes as needed. 0 10/19/2006 Active Start: 10-19-2006 SOOTHE 1 %-4.5 % EYE DROPS PRN 0 10/19/2006 Active Comment on above: PRN montelukast 10 mg oral tablet (20 sources) Leukotriene Receptor Antagonist Start: 3 take 1 tablet by mouth at bedtime Montelukast 10 MG tablet Active 10 mg PO AT BEDTIME March 17, 2014 12:00am Comment on above: Take 1 tablet by christy th daily at bedtime. OTC PRODUCT (9 sources) OTC PRODUCT Hemp emmanuel Cream as needed for pain for arthritis 0 Active OTC PRODUCT Hemp emmanuel Cream: One application as needed for pain. 0 Active Comment on above: Hempvana Cream: One application as needed for pain. Hempvana Cream as ne eded for pain for arthritis potassium gluconate 2.5 meq oral tablet (6 sources) take 1 tablet by mouth once daily Potassium 99 mg tab Take 1 tablet by mouth once daily. 0 Active Comment on above: Take 1 tablet by christy th once daily. pravastatin sodium 20 mg oral tablet (20 sources) HMG-CoA Reductase Inhibitor Start: 013 take 1 tablet by mouth at bedtime Pravastatin 20 MG tablet Active 20 mg PO AT BEDTIME March 17, 2014 12:00am Comment on above: Take 1 tablet by christy th every evening. 24 hr propranolol hydrochloride 80 mg extended release oral capsule (15 sources) beta-Adrenergic Navneet Start: 014 take 1 capsule by mouth once daily Propranolol 80 MG capsule Active 80 mg PO DAILY March 17, 2014 12:00am Pseudoephedrine (6 sources) alpha-Adrenergic Agonist take 1 tablet by mouth every twelve hours as needed pseudoephedrine HCl (SUDAFED ORAL) Take 1 tablet by mouth every 12 hours as needed. 0 Active Comment on above: Take 1 tablet by christy th every 12 hours as needed. sodium chloride 0.111 meq/ml nasal spray (6 sources) sodium chloride (AYR, OCEAN) 0.65 % nasal spray Use 1 [place] in the nose as needed. 0 Active Comment on above: Use 1 [place] in the n ose as needed. therapeutic multivitamin (THERA VITAMIN) tablet (6 sources) Start: 018 take 1 tablet by mouth once daily therapeutic multivitamin (THERA VITAMIN) tablet Take 1 tablet by mouth once daily. 100 tablet 0 02/08/2018 Active Comment on above: Take 1 tablet by christy once daily. traMADol hydrochloride 50 mg oral tablet (15 sources) Opioid Agonist Start: 014 take 1 tablet by mouth every six hours as needed for pain Tramadol 50 MG tablet Active 50 mg PO EVERY 6 HOURS NEEDED as needed for Pain March 17, 2014 12:00am traZODone hydrochloride 100 mg oral tablet (20 sources) Serotonin Reuptake Inhibitor Start: 014 take 1 tablet by mouth at bedtime Trazodone 100 MG tablet Active 100 mg PO AT BEDTIME March 17, 2014 12:00am Start: 06-02-2013 take 2 tablets by [facility] once daily at bedtime traZODone 50 mg tablet Indications: Insomnia, unspecified Take 2 tablets by mouth daily at bedtime. 180 tablet 3 06/02/2013 Active Comment on above: Take 2 tablets by mo cox [place] daily at bedtime. 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 100 tablet 2 10/27/2020 Active inject 0.75 mL by cha bcutaneous injection every week methotrexate pf (RASUVO) 25 mg/0.5 mL subcutaneous auto-injector Inject 0.75 mL subcutaneously one time a week. 0 Active Comment on above: Take 6 tablets by mo cox br[place] every Sunday. Inject 0.5 mL subcut aneously one time a week. Inject 0.75 mL subcu taneously one time a week. predniSONE 10 mg oral tablet (1 source) Start: 1 take 1 tablet by mouth once daily as needed for pain predniSONE (DELTASONE) 10 mg tablet Take 1 tablet by mouth once daily. X 7 days as needed for arthritis pain 7 tablet 2 12/31/2020 Active Comment on above: Take 1 tablet by christy once daily. X 7 days as needed for arthritis pain trolamine salicylate (3 sources) End: 2 trolamine salicylate (ASPERCREME TOPICAL) Apply 1 application to affected area as needed. 0 2022 Discontinued trolamine salicy late (ASPERCREME TOPICAL) Apply 1 application to affected area as needed. 0 Active Comment on above: Apply 1 application to affected area as needed. Problems Active Problems Problem Classification Problem Date Documented Da te Episodic/Chronic Asthma (6 sources) Unspecified asthma, uncomplicated; Translations: [Asthma, unspecified type, unspecified] Onset: 07-04-2006 07-04-2006 Chronic Deficiency and other anemia (6 sources) Anemia in neoplastic disease; Translations: [Anemia in neoplastic disease] Onset: 02-08-2018 03-08-2018 Chronic Deficiency and other anemia (1 source) Anemia; Translations: [Anemia, unspecified] Episodic Deficiency and other anemia (1 source) Anemia, unspecified; Translations: [Anemia, unspecified type] Onset: 02-27-2024 Episodic Diseases of white blood cells (2 sources) Neutropenia; Translations: [Neutropenia, unspecified] Onset: 02-27-2024 Chronic Disorders of lipid metabolism (6 sources) Hyperlipidemia; Translations: [Hyperlipidemia, unspecified] Onset: 06-04-2008 06-04-2008 Chronic Headache; including migraine (6 sources) Migraine without aura; Translations: [Migraine without aura, not intractable, without status migrainosus] Onset: 07-19-2007 01-18-2018 Chronic Leukemias (12 sources) Large granular lymphocytic leukemia; Translations: [Other lymphoid leukemia not having achieved remission] Onset: 02-08-2018 Chronic Menopausal disorders (6 sources) Menopausal symptom; Translations: [Menopausal and female climacteric states] Onset: 04-23-2006 04-23-2006 Chronic Osteoporosis (1 source) Age-related osteoporosis without current pathological fracture; Translations: [Age-related osteoporosis without current pathological fracture] Onset: 02-20-2025 Chronic Other upper respiratory disease (6 sources) Allergic rhinitis; Translations: [Allergic rhinitis, unspecified] Onset: 07-04-2006 07-04-2006 Chronic Rheumatoid arthritis and related disease (16 sources) Rheumatoid arthritis of multiple joints; Translations: [Rheumatoid arthritis without rheumatoid factor, multiple sites] Onset: 07-04-2006 Chronic Thyroid disorders (7 sources) Hypothyroidism; Translations: [Hypothyroidism, unspecified] Onset: 07-04-2006 07-04-2006 Chronic Past or Other Problems Problem Classification Problem Date Documented Da te Episodic/Chronic Other connective tissue disease (6 sources) Muscle pain; Translations: [Myalgia and myositis, unspecified] Onset: 07-04-2006 07-04-2006 Episodic Other screening for suspected conditions (not mental disorders or infectious disease) (1 source) Encounter for screening mammogram for malignant neoplasm of breast; Translations: [Encounter for screening mammogram for malignant neoplasm of breast] Onset: 07-29-2024 Episodic Results Test Name Value Interpretation Reference Range Facility Absolute lymphocyte countOrd ered By: Galilea Price on 02-17-2025 Lymphocytes Auto (Unsp spec) [#/Vol] 2.23 10*3/uL 0.83-4.51 [facility] Absolute neutrophil countOrd ered By: Galilea Price on 02-17-2025 Neutrophils (Bld) [#/Vol] 4.1 10*3/uL 2.0-7.7 [facility] Anion gap in Serum or Plasma Ordered By: Galilea Price on 02-17-2025 Anion gap [Moles/Vol] 11 mmol/L 5-15 [facility] Automated lymphocyte count a s percentage of total leukocytesOrdered By: Galilea Price on 02-17-2025 Lymphocytes/100 WBC Auto (Unsp spec) 30.6 % - [facility] BUN/creatinine ratioOrdered By: Galilea Price on 02-17-2025 Urea nitrogen/Creatinine [Mass ratio] 21.2 mg/mg High 10- [facility] Basophil percentageOrdered B y: Galilea Price on 02-17-2025 Basophils/100 WBC (Bld) 2.5 % High 0-1 [facility] Bilirubin, totalOrdered By: Galilea Price on 02-17-2025 Bilirubin [Mass/Vol] 0.60 mg/dL 0.00-1.30 [facility] CBC W/Diff, Automatedon 02-08 0-2024 Absolute Lymph 2.23 X10 3/uL Normal 0.83-4.51 [facility] Comment on above: Performed By: #### L 500.4100, L501.9520, L506.1001, L500.4050, L506.0400, L100.0100 #### [facility] [address] [place], [address] Absolute Neut 4.1 X10 3/uL Normal 2.0-7.7 [facility] Comment on above: Performed By: #### L 500.4100, L501.9520, L506.1001, L500.4050, L506.0400, L100.0100 #### [facility] [address] [place], [address] Basophils/100 WBC (Bld) 2.5 % High 0-1 [facility] Comment on above: Performed By: #### L 500.4100, L501.9520, L506.1001, L500.4050, L506.0400, L100.0100 #### [facility] [address] [place], [address] Eosinophils/100 WBC (Bld) 1.2 % Normal 0-5 [facility] Comment on above: Performed By: #### L 500.4100, L501.9520, L506.1001, L500.4050, L506.0400, L100.0100 #### [facility] [address] [place], [address] Erythrocyte distribution width (RBC) [Ratio] 14.0 % Normal 11.6-14.6 [facility] Comment on above: Performed By: #### L 500.4100, L501.9520, L506.1001, L500.4050, L506.0400, L100.0100 #### [facility] [address] [place], [address] Hematocrit (Bld) [Volume fraction] 39.0 % Normal 37-47 [facility] Comment on above: Performed By: #### L 500.4100, L501.9520, L506.1001, L500.4050, L506.0400, L100.0100 #### [facility] [address] [place], [address] Hemoglobin (Bld) [Mass/Vol] 13.3 g/dL Normal 12.0-15.0 [facility] Comment on above: Performed By: #### L 500.4100, L501.9520, L506.1001, L500.4050, L506.0400, L100.0100 #### [facility] [address] [place], [address] IG% 0.400 Normal 0.0-0.9 [facility] Comment on above: Result Comment: IG% - Immature Granulocytes (promyelocytes, myelocytes and metamyelocytes) > 1% indicates that a LEFT SHIFT is Present. Performed By: #### L 500.4100, L501.9520, L506.1001, L500.4050, L506.0400, L100.0100 #### [facility] [address] [place], [address] Lymphocytes/100 WBC (Bld) 30.6 % Normal 19-41 [facility] Comment on above: Performed By: #### L 500.4100, L501.9520, L506.1001, L500.4050, L506.0400, L100.0100 #### [facility] [address] [place], [address] MCH (RBC) [Entitic mass] 32.8 pg High 27.0-32.0 [facility] Comment on above: Performed By: #### L 500.4100, L501.9520, L506.1001, L500.4050, L506.0400, L100.0100 #### [facility] [address] [place], [address] MCHC (RBC) [Mass/Vol] 34.1 g/dL Normal 32-36 [facility] Comment on above: Performed By: #### L 500.4100, L501.9520, L506.1001, L500.4050, L506.0400, L100.0100 #### [facility] [address] [place], [address] MCV (RBC) [Entitic vol] 96.1 fL Normal 81-99 [facility] Comment on above: Performed By: #### L 500.4100, L501.9520, L506.1001, L500.4050, L506.0400, L100.0100 #### [facility] [address] [place], [address] Monocytes/100 WBC (Bld) 9.5 % Normal 0-10 [facility] Comment on above: Performed By: #### L 500.4100, [id number], L506.1001, L500.4050, L506.0400, L100.0100 #### [facility] [address] [place], [address] Neutrophils/100 WBC (Bld) 55.8 % Normal 47-70 [facility] Comment on above: Performed By: #### L 500.4100, [id number], L506.1001, L500.4050, L506.0400, L100.0100 #### [facility] [address] [place], [address] Nucleated RBC (Bld) [#/Vol] 0 10*3/uL Normal 0-5 [facility] Comment on above: Performed By: #### L 500.4100, L501.9520, L506.1001, L500.4050, L506.0400, L100.0100 #### [facility] [address] [place], [address] Platelet mean volume (Bld) [Entitic vol] 9.4 fL Normal 6.2-12.0 [facility] Comment on above: Performed By: #### L 500.4100, L501.9520, L506.1001, L500.4050, L506.0400, L100.0100 #### [facility] [address] [place], [address] Platelets (Bld) [#/Vol] 370 10*3/uL Normal 150-450 [facility] Comment on above: Performed By: #### L 500.4100, L501.9520, L506.1001, L500.4050, L506.0400, L100.0100 #### [facility] [address] [place], [address] RBC (Bld) [#/Vol] 4.06 10*6/uL Low 4.2-5.4 [facility] Comment on above: Performed By: #### L 500.4100, [id number], L506.1001, L500.4050, L506.0400, L100.0100 #### [facility] [address] [place], [address] RDW SD 49.5 fl High 35.1-43.9 [facility] Comment on above: Performed By: #### L 500.4100, L501.9520, L506.1001, L500.4050, L506.0400, L100.0100 #### [facility] [address] [place], [address] WBC (Bld) [#/Vol] 7.3 10*3/uL Normal 4.4-11.0 [facility] Comment on above: Performed By: #### L 500.4100, L501.9520, L506.1001, L500.4050, L506.0400, L100.0100 #### [facility] [address] [place], [address] Calculated very low density lipoprotein (VLDL) cholesterol measurementOrdered By: Galilea Price on 02-17-2025 Calculated very low density lipoprotein (VLDL) cholesterol measurement 41 mg/dL High 5-40 [facility] Carbon dioxide, total [Moles /volume] in Central venous bloodOrdered By: Galilea Price on 02-17-2025 CO2 [Moles/Vol] 27.8 mmol/L 21.0-32.0 [facility] Chloride assayOrdered By: Ra desirae Price on 02-17-2025 Chloride [Moles/Vol] 100 mmol/L 98-108 [facility] Comprehensive Metabolic Prof ilon 02-17-2025 Albumin [Mass/Vol] 4.6 g/dL Normal 3.4-4.8 [facility] Comment on above: Performed By: #### L 500.4100, L501.9520, L506.1001, L500.4050, L506.0400, L100.0100 #### [facility] [address] [place], [address] Albumin/Globulin [Mass ratio] 1.5 {ratio} Normal 0.9-2.4 [facility] Comment on above: Performed By: #### L 500.4100, L501.9520, L506.1001, L500.4050, L506.0400, L100.0100 #### [facility] [address] [place], [address] ALK PHOS 67 U/L Normal 35-104 [facility] Comment on above: Performed By: #### L 500.4100, L501.9520, L506.1001, L500.4050, L506.0400, L100.0100 #### [facility] [address] [place], [address] ALT [Catalytic activity/Vol] 21 U/L Normal <=34 [facility] Comment on above: Performed By: #### L 500.4100, L501.9520, L506.1001, L500.4050, L506.0400, L100.0100 #### [facility] [address] [place], [address] AST [Catalytic activity/Vol] 25 U/L Normal <=31 [facility] Comment on above: Performed By: #### L 500.4100, L501.9520, L506.1001, L500.4050, L506.0400, L100.0100 #### [facility] [address] [place], [address] Bilirubin [Mass/Vol] 0.60 mg/dL Normal 0.00-1.30 [facility] Comment on above: Performed By: #### L 500.4100, L501.9520, L506.1001, L500.4050, L506.0400, L100.0100 #### [facility] [address] [place], [address] BUN/CRE 21.2 RATIO High 10-20 [facility] Comment on above: Performed By: #### L 500.4100, L501.9520, L506.1001, L500.4050, L506.0400, L100.0100 #### [facility] [address] [place], [address] Calcium [Mass/Vol] 10.3 mg/dL Normal 7.6-11.0 [facility] Comment on above: Performed By: #### L 500.4100, L501.9520, L506.1001, L500.4050, L506.0400, L100.0100 #### [facility] [address] [place], [address] Chloride [Moles/Vol] 100 mmol/L Normal 98-108 [facility] Comment on above: Performed By: #### L 500.4100, L501.9520, L506.1001, L500.4050, L506.0400, L100.0100 #### [facility] [address] [place], [address] CO2 [Moles/Vol] 27.8 mmol/L Normal 21.0-32.0 [facility] Comment on above: Performed By: #### L 500.4100, L501.9520, L506.1001, L500.4050, L506.0400, L100.0100 #### [facility] [address] [place], [address] Creatinine [Mass/Vol] 0.78 mg/dL Normal 0.70-1.20 [facility] Comment on above: Performed By: #### L 500.4100, L501.9520, L506.1001, L500.4050, L506.0400, L100.0100 #### [facility] [address] [place], [address] GAP 11 Normal 5-15 [facility] Comment on above: Performed By: #### L 500.4100, L501.9520, L506.1001, L500.4050, L506.0400, L100.0100 #### [facility] [address] [place], [address] GFR/1.73 sq M.predicted among non-blacks MDRD (S/P/Bld) [Vol rate/Area] 81 mL/min/{1.73_m2} Normal >60 [facility] Comment on above: Result Comment: mL/m in/1.73m2 CKD-EPI Creatinine Equation (2020) Performed By: #### L 500.4100, L501.9520, L506.1001, L500.4050, L506.0400, L100.0100 #### [facility] [address] [place], [address] Globulin (S) [Mass/Vol] 3.1 g/dL Normal 2.2-4.2 [facility] Comment on above: Performed By: #### L 500.4100, L501.9520, L506.1001, L500.4050, L506.0400, L100.0100 #### [facility] [address] [place], [address] Glucose [Mass/Vol] 103 mg/dL High 70-99 [facility] Comment on above: Performed By: #### L 500.4100, L501.9520, L506.1001, L500.4050, L506.0400, L100.0100 #### [facility] [address] [place], [address] Potassium [Moles/Vol] 4.0 mmol/L Normal 3.3-5.1 [facility] Comment on above: Performed By: #### L 500.4100, L501.9520, L506.1001, L500.4050, L506.0400, L100.0100 #### [facility] [address] [place], [address] Sodium [Moles/Vol] 139 mmol/L Normal 133-145 [facility] Comment on above: Performed By: #### L 500.4100, L501.9520, L506.1001, L500.4050, L506.0400, L100.0100 #### [facility] [address] [place], [address] T PROT 7.6 g/dL Normal 5.9-8.4 [facility] Comment on above: Performed By: #### L 500.4100, L501.9520, L506.1001, L500.4050, L506.0400, L100.0100 #### [facility] [address] [place], [address] Urea nitrogen [Mass/Vol] 17 mg/dL Normal 4-19 [facility] Comment on above: Performed By: #### L 500.4100, L501.9520, L506.1001, L500.4050, L506.0400, L100.0100 #### [facility] [address] [place], [address] Eosinophil percentageOrdered By: Galilea Price on 02-17-2025 Eosinophils/100 WBC (Bld) 1.2 % 0-5 [facility] Erythrocyte distribution wid th ratioOrdered By: Galilea Price on 02-17-2025 Erythrocyte distribution width (RBC) [Ratio] 14.0 % 11.6-14.6 [facility] Erythrocyte distribution wid th standard deviationOrdered By: Galileaankush Price on 02-17-2025 Erythrocyte distribution width (RBC) [Ratio] 49.5 fl High 35.1-43.9 [facility] Glomerular filtration rate ( GFR) estimation/1.73 sq m using serum, plasma, or whole bOrdered By: Galilea Price on 02-17-2025 GFR/1.73 sq M.predicted among non-blacks MDRD (S/P/Bld) [Vol rate/Area] 81 mL/min/{1.73_m2} >60 [facility] Comment on above: mL/min/1.73m2 CKD-EP I Creatinine Equation (2020) Hematocrit Auto (Bld) [Volum e fraction]Ordered By: Galilea Price on 02-17-2025 Hematocrit (Bld) [Volume fraction] 39.0 % 37-47 [facility] Hemoglobin measurementOrdere d By: Galilea Price on 02-17-2025 Hemoglobin (Bld) [Mass/Vol] 13.3 g/dL 12.0-15.0 [facility] Immature granulocytes/100 WB C Auto (Bld)Ordered By: Galilea Price on 02-17-2025 Immature granulocytes/100 WBC (Bld) 0.400 % 0.0-0.9 [facility] Comment on above: IG% - Immature Granu locytes (promyelocytes, myelocytes and metamyelocytes) > 1% indicates that a LEFT SHIFT is Present. LDL calc ser/plasOrdered By: Galilea Price on 02-17-2025 Cholesterol in LDL [Mass/Vol] 88 mg/dL [facility] Comment on above: Bvrwalbrmz=151-440 m g/dL & Higher Hshu=109 mg/dL or greater Laboratory - Chemistry and C hemistry - challengeOrdered By: Galilea Price on 02-17-2025 AST [Catalytic activity/Vol] 25 U/L <32 [facility] Lipid Profileon 02-17-2025 CHOL:HDL 3.51 Normal [facility] Comment on above: Performed By: #### L 500.4100, L501.9520, L506.1001, L500.4050, L506.0400, L100.0100 #### [facility] [address] [place], [place], [id number] ([address]) Cholesterol [Mass/Vol] 181 mg/dL Normal <=200 [facility] Comment on above: Result Comment: Chol esterol level, Desirable <200 mg/dL Borderline high cholesterol 200-239 mg/dL High cholesterol >=240 mg/dL Recommendations of the NCEP Adult Treatment Panel for the following risk-cutoff thresholds for the [place] population. Performed By: #### L 500.4100, L501.9520, L506.1001, L500.4050, L506.0400, L100.0100 #### [facility] [address] [place], [address] Cholesterol in HDL [Mass/Vol] 52 mg/dL Normal [facility] Comment on above: Result Comment: [place] [employer] Cholesterol Education Program (NCEP) guidelines: <40 mg/dL: Low HDL-cholesterol (major risk factor for CHD) >= 60 mg/dL: High HDL-cholesterol (negative risk factor for CHD) HDL-cholesterol is affected by a number of factors, e.g. smoking, exercise, hormones, sex and age. Performed By: #### L 500.4100, L501.9520, L506.1001, L500.4050, L506.0400, L100.0100 #### [facility] [address] [place], [address] Cholesterol in LDL [Mass/Vol] 88 mg/dL Normal [facility] Comment on above: Result Comment: Bord xurrsc=301-771 mg/dL Higher Ntvo=897 mg/dL or greater Performed By: #### L 500.4100, L501.9520, L506.1001, L500.4050, L506.0400, L100.0100 #### [facility] [address] [place], [address] Cholesterol in VLDL [Mass/Vol] 41 mg/dL High 5-40 [facility] Comment on above: Performed By: #### L 500.4100, L501.9520, L506.1001, L500.4050, L506.0400, L100.0100 #### [facility] [address] [place], [address] Triglyceride [Mass/Vol] 206 mg/dL High [facility] Comment on above: Result Comment: The drugs N-Acetylcysteine and Metamizole may falsely depress this assay. Normal range: <150 mg/dL Borderline High: 150-199 mg/dL High: 200-499 mg/dL Very High: >500 mg/dL Performed By: #### L 500.4100, L501.9520, L506.1001, L500.4050, L506.0400, L100.0100 #### [facility] [address] [place], [address] MCV (mean corpuscular volume ) determinationOrdered By: Galilea Price on 02-17-2025 MCV (RBC) [Entitic vol] 96.1 fL 81-99 [facility] Mean corpuscular hemoglobin (MCH) determinationOrdered By: Galilea Price on 02-17-2025 MCH (RBC) [Entitic mass] 32.8 pg High 27.0-32.0 [facility] Mean corpuscular hemoglobin concentration (MCHC) determinationOrdered By: Galilea Price on 02-17-2025 MCHC (RBC) [Mass/Vol] 34.1 g/dL 32-36 [facility] Mean platelet volume determi nationOrdered By: Galilea Price on 02-17-2025 Platelet mean volume (Bld) [Entitic vol] 9.4 fL 6.2-12.0 [facility] Monocyte percentageOrdered B y: Galilea Price on 02-17-2025 Monocytes/100 WBC (Bld) 9.5 % 0-10 [facility] Neutrophil percentageOrdered By: Galilea Price on 02-17-2025 Neutrophils/100 WBC (Bld) 55.8 % 47-70 [facility] Nucleated red blood cell per centageOrdered By: Galilea Price on 02-17-2025 Nucleated RBC/100 WBC (Bld) [Ratio] 0 % 0-5 [facility] Platelet countOrdered By: Ra desirae Price on 02-17-2025 Platelets (Bld) [#/Vol] 370 10*3/uL 150-450 [facility] Potassium measurement (mass/ volume)Ordered By: Galilea Price on 02-17-2025 Potassium (Unsp spec) [Mass/Vol] 4.0 mmol/L 3.3-5.1 [facility] RBC Auto (Bld) [#/Vol]Ordere d By: Galilea Price on 02-17-2025 RBC (Bld) [#/Vol] 4.06 10*6/uL Low 4.2-5.4 [facility] Screening total cholesterol/ high density lipoprotein (HDL) cholesterol ratioOrdered By: Galilea Price on 02-17-2025 Cholesterol.total/Choles terol in HDL [Mass ratio] 3.51 {ratio} [facility] Serum creatinine measurement (mass/volume)Ordered By: Galilea Price on 02-17-2025 Creatinine [Mass/Vol] 0.78 mg/dL 0.70-1.20 [facility] Serum globulin measurementOr dered By: Galilea Price on 02-17-2025 Globulin (S) [Mass/Vol] 3.1 g/dL 2.2-4.2 [facility] Serum glucose measurement (m ass/volume)Ordered By: Galilea Price on 02-17-2025 Glucose [Mass/Vol] 103 mg/dL High 70-99 [facility] Serum or plasma alanine cotton otransferase (ALT) measurementOrdered By: Galilea Price on 02-17-2025 ALT [Catalytic activity/Vol] 21 U/L <35 [facility] Serum or plasma albumin agustin urement (mass/volume)Ordered By: Galilea Price on 02-17-2025 Albumin [Mass/Vol] 4.6 g/dL 3.4-4.8 [facility] Serum or plasma albumin/glob ulin mass ratioOrdered By: Galilea Price on 02-17-2025 Albumin/Globulin [Mass ratio] 1.5 {ratio} 0.9-2.4 [facility] Serum or plasma alkaline aleks sphatase measurementOrdered By: Galilea Price 02-17-2025 ALP [Catalytic activity/Vol] 67 U/L 35-104 [facility] Serum or plasma calcium agustin urement (mass/volume)Ordered By: Galilea Price on 02-17-2025 Calcium [Mass/Vol] 10.3 mg/dL 7.6-11.0 [facility] Serum or plasma cholesterol in HDL measurement (mass/volume)Ordered By: Galilea Price on 02-17-2025 Cholesterol in HDL [Mass/Vol] 52 mg/dL >40 [facility] Comment on above: National Cholesterol Education Program (NCEP) guidelines:<40 mg/dL: Low HDL-cholesterol (major risk factor for CHD)>= 60 mg/dL: High HDL-cholesterol (negative risk factor for CHD)HDL-cholesterol is affected by a number of factors, e.g. smoking, exercise, hormones, sex and age. Serum or plasma cholesterol measurement (mass/volume)Ordered By: Galilea Price on 02-17-2025 Cholesterol [Mass/Vol] 181 mg/dL <201 [facility] Comment on above: Cholesterol level, D esirable <200 mg/dLBorderline high cholesterol 200-239 mg/dLHigh cholesterol >=240 mg/dLRecommendations of the NCEP Adult Treatment Panel for the following risk-cutoff thresholds for the [place] population. Serum or plasma urea nitroge n measurement (mass/volume)Ordered By: Galilea Price on 02-17-2025 Urea nitrogen [Mass/Vol] 17 mg/dL 4-19 [facility] Sodium levelOrdered By: Mirna Price on 02-17-2025 Sodium [Moles/Vol] 139 mmol/L 133-145 [facility] T4 Free Directon 02-17-2025 T4 FREE DIRECT 1.60 ng/dL High 0.76-1.46 [facility] Comment on above: Performed By: #### L 500.4100, L501.9520, L506.1001, L500.4050, L506.0400, L100.0100 #### [facility] [address] [place], [place], [id number] T4 freeOrdered By: Galilea smith on 02-17-2025 Free T4 [Mass/Vol] 1.60 ng/dL High 0.76-1.46 [facility] TSH DL <= 0.005 mIU/L QnOrde red By: Galilea Price on 02-17-2025 TSH Qn 4.970 uIU/mL High 0.300-4.200 [facility] Thyroid Stim Hormone (TSH)on 02-17-2025 TSH 4.970 uIU/mL High 0.300-4.200 [facility] Comment on above: Performed By: #### L 500.4100, L501.9520, L506.1001, L500.4050, L506.0400, L100.0100 #### [facility] [address] [place], [place], [id number] Total proteinOrdered By: Olga Lidia Price on 02-17-2025 Protein [Mass/Vol] 7.6 g/dL 5.9-8.4 [facility] Triglycerides measurementOrd ered By: Galilea Price on 02-17-2025 Triglyceride [Mass/Vol] 206 mg/dL High <199 [facility] Comment on above: The drugs N-Acetylcy steine and Metamizole may falsely depress this assay. Normal range: <150 mg/dLBorderline High: 150-199 mg/dLHigh: 200-499 mg/dLVery High: >500 mg/dL Vitamin D,25 Hydroxyon 02-17 Vitamin D 25-OH 87.9 ng/mL Normal 30-100 [facility] Comment on above: Result Comment: Millie min D Status Deficiency: <20 ng/mL (50nmol/L) Insufficiency: 20-30 ng/mL (50-75 nmol/L) Sufficiency: 30-100 ng/mL (75-250 nmol/L) Toxicity: >100 ng/mL (>250 nmol/L) Performed By: #### L 500.4100, L501.9520, L506.1001, L500.4050, L506.0400, L100.0100 #### [facility] [address] [place], [address] White blood cell (WBC) count Ordered By: Galilea Price on 02-17-2025 WBC (Bld) [#/Vol] 7.3 10*3/uL 4.4-11.0 [facility] Absolute lymphocyte countOrd ered By: Radha Bonilla on 12-16-2024 Lymphocytes Auto (Unsp spec) [#/Vol] 1.18 10*3/uL 0.83-4.51 [facility] Absolute neutrophil countOrd ered By: Radha Bonilla on 12-16-2024 Neutrophils (Bld) [#/Vol] 4.8 10*3/uL 2.0-7.7 [facility] Anion gap in Serum or Plasma Ordered By: Radha Bonilla on 12-16-2024 Anion gap [Moles/Vol] 13 mmol/L 5-15 [facility] Automated lymphocyte count a s percentage of total leukocytesOrdered By: Radha Bonilla on 12-16-2024 Lymphocytes/100 WBC Auto (Unsp spec) 17.8 % Low 19-41 [facility] BUN/creatinine ratioOrdered By: Radha Chad on 12-16-2024 Urea nitrogen/Creatinine [Mass ratio] 17.7 mg/mg 10-20 [facility] Basophil percentageOrdered B y: Radha Chad on 12-16-2024 Basophils/100 WBC (Bld) 1.2 % High 0-1 [facility] Bilirubin, totalOrdered By: Radha Chad on 12-16-2024 Bilirubin [Mass/Vol] 0.31 mg/dL 0.00-1.30 [facility] CBC W/Diff, Automatedon Absolute Lymph 1.18 X10 3/uL Normal 0.83-4.51 [facility] Comment on above: Performed By: #### L 500.4100, L501.9520, L506.1001, L500.4050, L506.0400, L100.0100 #### [facility] [address] [place], [address] Absolute Neut 4.8 X10 3/uL Normal 2.0-7.7 [facility] Comment on above: Performed By: #### L 500.4100, L501.9520, L506.1001, L500.4050, L506.0400, L100.0100 #### [facility] [address] [place], [address] Basophils/100 WBC (Bld) 1.2 % High 0-1 [facility] Comment on above: Performed By: #### L 500.4100, L501.9520, L506.1001, L500.4050, L506.0400, L100.0100 #### [facility] [address] [place], [address] Eosinophils/100 WBC (Bld) 1.5 % Normal 0-5 [facility] Comment on above: Performed By: #### L 500.4100, L501.9520, L506.1001, L500.4050, L506.0400, L100.0100 #### [facility] [address] [place], [address] Erythrocyte distribution width (RBC) [Ratio] 14.3 % Normal 11.6-14.6 [facility] Comment on above: Performed By: #### L 500.4100, L501.9520, L506.1001, L500.4050, L506.0400, L100.0100 #### [facility] [address] [place], [address] Hematocrit (Bld) [Volume fraction] 40.2 % Normal 37-47 [facility] Comment on above: Performed By: #### L 500.4100, L501.9520, L506.1001, L500.4050, L506.0400, L100.0100 #### [facility] [address] [place], [address] Hemoglobin (Bld) [Mass/Vol] 13.5 g/dL Normal 12.0-15.0 [facility] Comment on above: Performed By: #### L 500.4100, L501.9520, L506.1001, L500.4050, L506.0400, L100.0100 #### [facility] [address] [place], [address] IG% 0.300 Normal 0.0-0.9 [facility] Comment on above: Result Comment: IG% - Immature Granulocytes (promyelocytes, myelocytes and metamyelocytes) > 1% indicates that a LEFT SHIFT is Present. Performed By: #### L 500.4100, L501.9520, L506.1001, L500.4050, L506.0400, L100.0100 #### [facility] [address] [place], [address] Lymphocytes/100 WBC (Bld) 17.8 % Low 19-41 [facility] Comment on above: Performed By: #### L 500.4100, L501.9520, L506.1001, L500.4050, L506.0400, L100.0100 #### [facility] [address] [place], [address] MCH (RBC) [Entitic mass] 32.2 pg High 27.0-32.0 [facility] Comment on above: Performed By: #### L 500.4100, L501.9520, L506.1001, L500.4050, L506.0400, L100.0100 #### [facility] [address] [place], [address] MCHC (RBC) [Mass/Vol] 33.6 g/dL Normal 32-36 [facility] Comment on above: Performed By: #### L 500.4100, L501.9520, L506.1001, L500.4050, L506.0400, L100.0100 #### [facility] [address] [place], [address] MCV (RBC) [Entitic vol] 95.9 fL Normal 81-99 [facility] Comment on above: Performed By: #### L 500.4100, L501.9520, L506.1001, L500.4050, L506.0400, L100.0100 #### [facility] [address] [place], [address] Monocytes/100 WBC (Bld) 6.5 % Normal 0-10 [facility] Comment on above: Performed By: #### L 500.4100, L501.9520, L506.1001, L500.4050, L506.0400, L100.0100 #### [facility] [address] [place], [address] Neutrophils/100 WBC (Bld) 72.7 % High 47-70 [facility] Comment on above: Performed By: #### L 500.4100, L501.9520, L506.1001, L500.4050, L506.0400, L100.0100 #### [facility] [address] [place], [address] Nucleated RBC (Bld) [#/Vol] 0 10*3/uL Normal 0-5 [facility] Comment on above: Performed By: #### L 500.4100, L501.9520, L506.1001, L500.4050, L506.0400, L100.0100 #### [facility] [address] [place], [address] Platelet mean volume (Bld) [Entitic vol] 10.0 fL Normal 6.2-12.0 [facility] Comment on above: Performed By: #### L 500.4100, L501.9520, L506.1001, L500.4050, L506.0400, L100.0100 #### [facility] [address] [place], [address] Platelets (Bld) [#/Vol] 325 10*3/uL Normal 150-450 [facility] Comment on above: Performed By: #### L 500.4100, L501.9520, L506.1001, L500.4050, L506.0400, L100.0100 #### [facility] [address] [place], [address] RBC (Bld) [#/Vol] 4.19 10*6/uL Low 4.2-5.4 [facility] Comment on above: Performed By: #### L 500.4100, L501.9520, L506.1001, L500.4050, L506.0400, L100.0100 #### [facility] [address] [place], [address] RDW SD 49.9 fl High 35.1-43.9 [facility] Comment on above: Performed By: #### L 500.4100, L501.9520, L506.1001, L500.4050, L506.0400, L100.0100 #### [facility] [address] [place], [address] WBC (Bld) [#/Vol] 6.6 10*3/uL Normal 4.4-11.0 [facility] Comment on above: Performed By: #### L 500.4100, L501.9520, L506.1001, L500.4050, L506.0400, L100.0100 #### [facility] [address] [place], [address] Carbon dioxide, total [Moles /volume] in Central venous bloodOrdered By: Radha Bonilla on 12-16-2024 CO2 [Moles/Vol] 26.8 mmol/L 21.0-32.0 [facility] Chloride assayOrdered By: Josr Bonilla on 12-16-2024 Chloride [Moles/Vol] 99 mmol/L 98-108 [facility] Comprehensive Metabolic Prof ilon 12-16-2024 Albumin [Mass/Vol] 4.7 g/dL Normal 3.4-4.8 [facility] Comment on above: Performed By: #### L 500.4100, L501.9520, L506.1001, L500.4050, L506.0400, L100.0100 #### [facility] [address] [place], [address] Albumin/Globulin [Mass ratio] 1.5 {ratio} Normal 0.9-2.4 [facility] Comment on above: Performed By: #### L 500.4100, L501.9520, L506.1001, L500.4050, L506.0400, L100.0100 #### [facility] [address] [place], [address] ALK PHOS 68 U/L Normal 35-104 [facility] Comment on above: Performed By: #### L 500.4100, L501.9520, L506.1001, L500.4050, L506.0400, L100.0100 #### [facility] [address] [place], [address] ALT [Catalytic activity/Vol] 29 U/L Normal <=34 [facility] Comment on above: Performed By: #### L 500.4100, L501.9520, L506.1001, L500.4050, L506.0400, L100.0100 #### [facility] [address] [place], [address] AST [Catalytic activity/Vol] 33 U/L High <=31 [facility] Comment on above: Performed By: #### L 500.4100, L501.9520, L506.1001, L500.4050, L506.0400, L100.0100 #### [facility] [address] [place], [address] Bilirubin [Mass/Vol] 0.31 mg/dL Normal 0.00-1.30 [facility] Comment on above: Performed By: #### L 500.4100, L501.9520, L506.1001, L500.4050, L506.0400, L100.0100 #### [facility] [address] [place], [address] BUN/CRE 17.7 RATIO Normal 10-20 [facility] Comment on above: Performed By: #### L 500.4100, L501.9520, L506.1001, L500.4050, L506.0400, L100.0100 #### [facility] [address] [place], [address] Calcium [Mass/Vol] 10.0 mg/dL Normal 7.6-11.0 [facility] Comment on above: Performed By: #### L 500.4100, L501.9520, L506.1001, L500.4050, L506.0400, L100.0100 #### [facility] [address] [place], [address] Chloride [Moles/Vol] 99 mmol/L Normal 98-108 [facility] Comment on above: Performed By: #### L 500.4100, L501.9520, L506.1001, L500.4050, L506.0400, L100.0100 #### [facility] [address] [place], [address] CO2 [Moles/Vol] 26.8 mmol/L Normal 21.0-32.0 [facility] Comment on above: Performed By: #### L 500.4100, L501.9520, L506.1001, L500.4050, L506.0400, L100.0100 #### [facility] [address] [place], [address] Creatinine [Mass/Vol] 0.78 mg/dL Normal 0.70-1.20 [facility] Comment on above: Performed By: #### L 500.4100, L501.9520, L506.1001, L500.4050, L506.0400, L100.0100 #### [facility] [address] [place], [address] GAP 13 Normal 5-15 [facility] Comment on above: Performed By: #### L 500.4100, L501.9520, L506.1001, L500.4050, L506.0400, L100.0100 #### [facility] [address] [place], [address] GFR/1.73 sq M.predicted among non-blacks MDRD (S/P/Bld) [Vol rate/Area] 81 mL/min/{1.73_m2} Normal >60 [facility] Comment on above: Result Comment: mL/m in/1.73m2 CKD-EPI Creatinine Equation (2020) Performed By: #### L 500.4100, L501.9520, L506.1001, L500.4050, L506.0400, L100.0100 #### [facility] [address] [place], [address] Globulin (S) [Mass/Vol] 3.1 g/dL Normal 2.2-4.2 [facility] Comment on above: Performed By: #### L 500.4100, L501.9520, L506.1001, L500.4050, L506.0400, L100.0100 #### [facility] [address] [place], [address] Glucose [Mass/Vol] 124 mg/dL High 70-99 [facility] Comment on above: Performed By: #### L 500.4100, L501.9520, L506.1001, L500.4050, L506.0400, L100.0100 #### [facility] [address] [place], [address] Potassium [Moles/Vol] 4.0 mmol/L Normal 3.3-5.1 [facility] Comment on above: Performed By: #### L 500.4100, L501.9520, L506.1001, L500.4050, L506.0400, L100.0100 #### [facility] [address] [place], [address] Sodium [Moles/Vol] 138 mmol/L Normal 133-145 [facility] Comment on above: Performed By: #### L 500.4100, L501.9520, L506.1001, L500.4050, L506.0400, L100.0100 #### [facility] [address] [place], [address] T PROT 7.9 g/dL Normal 5.9-8.4 [facility] Comment on above: Performed By: #### L 500.4100, L501.9520, L506.1001, L500.4050, L506.0400, L100.0100 #### [facility] [address] [place], [place], [id number] (422) Urea nitrogen [Mass/Vol] 14 mg/dL Normal 4-19 [facility] Comment on above: Performed By: #### L 500.4100, L501.9520, L506.1001, L500.4050, L506.0400, L100.0100 #### [facility] [address] [place], [place], [id number] (403) Eosinophil percentageOrdered By: Radha Bonilla on 12-16-2024 Eosinophils/100 WBC (Bld) 1.5 % 0-5 [facility] Erythrocyte distribution wid th (RBC) [Ratio]Ordered By: Radha Bonilla on 12-16-2024 Erythrocyte distribution width (RBC) [Entitic vol] 49.9 fL High 35.1-43.9 [facility] Erythrocyte distribution wid th ratioOrdered By: Radha Bonilla on 12-16-2024 Erythrocyte distribution width (RBC) [Ratio] 14.3 % 11.6-14.6 [facility] Erythrocyte distribution wid th standard deviationOrdered By: Radha Bonilla on 12-16-2024 Erythrocyte distribution width (RBC) [Ratio] 49.9 fl High 35.1-43.9 [facility] GFR/1.73 sq M.predicted surinder g non-blacks MDRD (S/P/Bld) [Vol rate/Area]Ordered By: Radha Bonilla on 12-16-2024 Estimated GFR (MDRD) Non-Af Amer 81 >60 [facility] Comment on above: mL/min/1.73m2 CKD-EP I Creatinine Equation (2020) Glomerular filtration rate ( GFR) estimation/1.73 sq m using serum, plasma, or whole bOrdered By: Radha Bonilla on 12-16-2024 GFR/1.73 sq M.predicted among non-blacks MDRD (S/P/Bld) [Vol rate/Area] 81 mL/min/{1.73_m2} >60 [facility] Comment on above: mL/min/1.73m2 CKD-EP I Creatinine Equation (2020) Hematocrit Auto (Bld) [Volum e fraction]Ordered By: Radha Bonilla on 12-16-2024 Hematocrit (Bld) [Volume fraction] 40.2 % 37-47 [facility] Hemoglobin measurementOrdere d By: Radha Bonilla on 12-16-2024 Hemoglobin (Bld) [Mass/Vol] 13.5 g/dL 12.0-15.0 [facility] Immature granulocytes/100 WB C Auto (Bld)Ordered By: Radha Bonilla on 12-16-2024 Immature granulocytes/100 WBC (Bld) 0.300 % 0.0-0.9 [facility] Comment on above: IG% - Immature Granu locytes (promyelocytes, myelocytes and metamyelocytes) > 1% indicates that a LEFT SHIFT is Present. Laboratory - Chemistry and C hemistry - challengeOrdered By: Radha Bonilla on 12-16-2024 AST [Catalytic activity/Vol] 33 U/L High <32 [facility] Lymphocytes Auto (Unsp spec) [#/Vol]Ordered By: Radha Bonilla on 12-16-2024 Lymphocytes (Bld) [#/Vol] 1.18 10*3/uL 0.83-4.51 [facility] Lymphocytes/100 WBC Auto (Un sp spec)Ordered By: Radha Bonilla on 12-16-2024 Lymphocytes/100 WBC (Bld) 17.8 % Low 19-41 [facility] MCV (mean corpuscular volume ) determinationOrdered By: Radha Bonilla on 12-16-2024 MCV (RBC) [Entitic vol] 95.9 fL 81-99 [facility] Mean corpuscular hemoglobin (MCH) determinationOrdered By: Radha Bonilla on 12-16-2024 MCH (RBC) [Entitic mass] 32.2 pg High 27.0-32.0 [facility] Mean corpuscular hemoglobin concentration (MCHC) determinationOrdered By: Radha Bonilla on 12-16-2024 MCHC (RBC) [Mass/Vol] 33.6 g/dL 32-36 [facility] Mean platelet volume determi nationOrdered By: Radha Bonilla on 12-16-2024 Platelet mean volume (Bld) [Entitic vol] 10.0 fL 6.2-12.0 [facility] Monocyte percentageOrdered B y: Radha Bonilla on 12-16-2024 Monocytes/100 WBC (Bld) 6.5 % 0-10 [facility] Neutrophil percentageOrdered By: Radha Bonilla on 12-16-2024 Neutrophils/100 WBC (Bld) 72.7 % High 47-70 [facility] Nucleated red blood cell per centageOrdered By: Radha Bonilla on 12-16-2024 Nucleated RBC/100 WBC (Bld) [Ratio] 0 % 0-5 [facility] Platelet countOrdered By: Josr Bonilla on 12-16-2024 Platelets (Bld) [#/Vol] 325 10*3/uL 150-450 [facility] Potassium (Unsp spec) [Mass/ Vol]Ordered By: Radha Bonilla on 12-16-2024 Potassium [Moles/Vol] 4.0 mmol/L 3.3-5.1 [facility] Potassium measurement (mass/ volume)Ordered By: Radha Bonilla on 12-16-2024 Potassium (Unsp spec) [Mass/Vol] 4.0 mmol/L 3.3-5.1 [facility] RBC Auto (Bld) [#/Vol]Ordere d By: Radha Bonilla on 12-16-2024 RBC (Bld) [#/Vol] 4.19 10*6/uL Low 4.2-5.4 [facility] Serum creatinine measurement (mass/volume)Ordered By: Radha Bonilla on 12-16-2024 Creatinine [Mass/Vol] 0.78 mg/dL 0.70-1.20 [facility] Serum globulin measurementOr dered By: Radha Bonilla on 12-16-2024 Globulin (S) [Mass/Vol] 3.1 g/dL 2.2-4.2 [facility] Serum glucose measurement (m ass/volume)Ordered By: Radha Bonilla on 12-16-2024 Glucose [Mass/Vol] 124 mg/dL High 70-99 [facility] Serum or plasma alanine cotton otransferase (ALT) measurementOrdered By: Radha Bonilla on 12-16-2024 ALT [Catalytic activity/Vol] 29 U/L <35 [facility] Serum or plasma albumin agustin urement (mass/volume)Ordered By: Radha Bonilla on 12-16-2024 Albumin [Mass/Vol] 4.7 g/dL 3.4-4.8 [facility] Serum or plasma albumin/glob ulin mass ratioOrdered By: Radha Bonilla on 12-16-2024 Albumin/Globulin [Mass ratio] 1.5 {ratio} 0.9-2.4 [facility] Serum or plasma alkaline aleks sphatase measurementOrdered By: Rdaha Bonilla on 12-16-2024 ALP [Catalytic activity/Vol] 68 U/L 35-104 [facility] Serum or plasma calcium agustin urement (mass/volume)Ordered By: Radha Bonilla on 12-16-2024 Calcium [Mass/Vol] 10.0 mg/dL 7.6-11.0 [facility] Serum or plasma urea nitroge n measurement (mass/volume)Ordered By: Radha Bonilla on 12-16-2024 Urea nitrogen [Mass/Vol] 14 mg/dL 4-19 [facility] Sodium levelOrdered By: Hunter Bonilla on 12-16-2024 Sodium [Moles/Vol] 138 mmol/L 133-145 [facility] Total proteinOrdered By: Juanito Bonilla on 12-16-2024 Protein [Mass/Vol] 7.9 g/dL 5.9-8.4 [facility] White blood cell (WBC) count Ordered By: Radha Bonilla on 12-16-2024 WBC (Bld) [#/Vol] 6.6 10*3/uL 4.4-11.0 [facility] Absolute neutrophil countOrd ered By: Radha Bonilla on 09-26-2024 Neutrophils (Bld) [#/Vol] 4.7 10*3/uL 2.0-7.7 [facility] Albumin to globulin ratioOrd ered By: Radha Bonilla on 09-26-2024 Albumin/Globulin [Mass ratio] 1.0 {ratio} 0.9-2.4 [facility] Basophil percentageOrdered B y: Radha Bonilla on 09-26-2024 Basophils/100 WBC (Bld) 1.4 % High 0-1 [facility] Bilirubin, totalOrdered By: Radha Bonilla on 09-26-2024 Bilirubin [Mass/Vol] 0.50 mg/dL 0.20-1.00 [facility] Comment on above: For patients on eltr ombopag therapy, use of Dimension [place] TBIL is not recommended. Blood urea nitrogen (BUN)/cr eatinine ratioOrdered By: Radha Bonilla on 09-26-2024 Urea nitrogen/Creatinine [Mass ratio] 13.7 mg/mg 10-20 [facility] CBC W/Diff, Automatedon 09-10 Absolute Lymph 1.69 X10 3/uL Normal 0.83-4.51 [facility] Comment on above: Performed By: #### L 500.4100, L501.9520, L506.1001, L500.4050, L506.0400, L100.0100 #### [facility] [address] [place], [address] Absolute Neut 4.7 X10 3/uL Normal 2.0-7.7 [facility] Comment on above: Performed By: #### L 500.4100, L501.9520, L506.1001, L500.4050, L506.0400, L100.0100 #### [facility] [address] [place], [address] Basophils/100 WBC (Bld) 1.4 % High 0-1 [facility] Comment on above: Performed By: #### L 500.4100, L501.9520, L506.1001, L500.4050, L506.0400, L100.0100 #### [facility] [address] [place], [address] Eosinophils/100 WBC (Bld) 1.1 % Normal 0-5 [facility] Comment on above: Performed By: #### L 500.4100, L501.9520, L506.1001, L500.4050, L506.0400, L100.0100 #### [facility] [address] [place], [address] Erythrocyte distribution width (RBC) [Ratio] 15.0 % High 11.6-14.6 [facility] Comment on above: Performed By: #### L 500.4100, L501.9520, L506.1001, L500.4050, L506.0400, L100.0100 #### [facility] [address] [place], [address] Hematocrit (Bld) [Volume fraction] 41.2 % Normal 37-47 [facility] Comment on above: Performed By: #### L 500.4100, L501.9520, L506.1001, L500.4050, L506.0400, L100.0100 #### [facility] [address] [place], [address] Hemoglobin (Bld) [Mass/Vol] 13.3 g/dL Normal 12.0-15.0 [facility] Comment on above: Performed By: #### L 500.4100, L501.9520, L506.1001, L500.4050, L506.0400, L100.0100 #### [facility] [address] [place], [address] IG% 0.300 Normal 0.0-0.9 [facility] Comment on above: Result Comment: IG% - Immature Granulocytes (promyelocytes, myelocytes and metamyelocytes) > 1% indicates that a LEFT SHIFT is Present. Performed By: #### L 500.4100, L501.9520, L506.1001, L500.4050, L506.0400, L100.0100 #### [facility] [address] [place], [address] Lymphocytes/100 WBC (Bld) 23.6 % Normal 19-41 [facility] Comment on above: Performed By: #### L 500.4100, L501.9520, L506.1001, L500.4050, L506.0400, L100.0100 #### [facility] [address] [place], [address] MCH (RBC) [Entitic mass] 31.6 pg Normal 27.0-32.0 [facility] Comment on above: Performed By: #### L 500.4100, L501.9520, L506.1001, L500.4050, L506.0400, L100.0100 #### [facility] [address] [place], [address] MCHC (RBC) [Mass/Vol] 32.3 g/dL Normal 32-36 [facility] Comment on above: Performed By: #### L 500.4100, L501.9520, L506.1001, L500.4050, L506.0400, L100.0100 #### [facility] [address] [place], [address] MCV (RBC) [Entitic vol] 97.9 fL Normal 81-99 [facility] Comment on above: Performed By: #### L 500.4100, L501.9520, L506.1001, L500.4050, L506.0400, L100.0100 #### [facility] [address] [place], [address] Monocytes/100 WBC (Bld) 8.2 % Normal 0-10 [facility] Comment on above: Performed By: #### L 500.4100, L501.9520, L506.1001, L500.4050, L506.0400, L100.0100 #### [facility] [address] [place], [address] Neutrophils/100 WBC (Bld) 65.4 % Normal 47-70 [facility] Comment on above: Performed By: #### L 500.4100, L501.9520, L506.1001, L500.4050, L506.0400, L100.0100 #### [facility] [address] [place], [address] Nucleated RBC (Bld) [#/Vol] 0 10*3/uL Normal 0-5 [facility] Comment on above: Performed By: #### L 500.4100, L501.9520, L506.1001, L500.4050, L506.0400, L100.0100 #### [facility] [address] [place], [address] Platelet mean volume (Bld) [Entitic vol] 9.6 fL Normal 6.2-12.0 [facility] Comment on above: Performed By: #### L 500.4100, L501.9520, L506.1001, L500.4050, L506.0400, L100.0100 #### [facility] [address] [place], [address] Platelets (Bld) [#/Vol] 415 10*3/uL Normal 150-450 [facility] Comment on above: Performed By: #### L 500.4100, L501.9520, L506.1001, L500.4050, L506.0400, L100.0100 #### [facility] [address] [place], [address] RBC (Bld) [#/Vol] 4.21 10*6/uL Normal 4.2-5.4 [facility] Comment on above: Performed By: #### L 500.4100, L501.9520, L506.1001, L500.4050, L506.0400, L100.0100 #### [facility] [address] [place], [address] RDW SD 53.7 fl High 35.1-43.9 [facility] Comment on above: Performed By: #### L 500.4100, L501.9520, L506.1001, L500.4050, L506.0400, L100.0100 #### [facility] [address] [place], [address] WBC (Bld) [#/Vol] 7.2 10*3/uL Normal 4.4-11.0 [facility] Comment on above: Performed By: #### L 500.4100, L501.9520, L506.1001, L500.4050, L506.0400, L100.0100 #### [facility] [address] [place], [address] Carbon dioxide measurementOr dered By: Radha Bonilla on 09-26-2024 CO2 [Moles/Vol] 29.0 mmol/L 21.0-32.0 [facility] Chloride measurementOrdered By: Radha Bonilla on 09-26-2024 Chloride [Moles/Vol] 102 mmol/L 98-107 [facility] Comprehensive Metabolic Prof ilon 09-26-2024 Albumin [Mass/Vol] 4.1 g/dL Normal 3.2-5.0 [facility] Comment on above: Performed By: #### L 500.4100, L501.9520, L506.1001, L500.4050, L506.0400, L100.0100 #### [facility] [address] [place], [address] Albumin/Globulin [Mass ratio] 1.0 {ratio} Normal 0.9-2.4 [facility] Comment on above: Performed By: #### L 500.4100, L501.9520, L506.1001, L500.4050, L506.0400, L100.0100 #### [facility] [address] [place], [address] ALK P 85 U/L Normal 45-117 [facility] Comment on above: Performed By: #### L 500.4100, L501.9520, L506.1001, L500.4050, L506.0400, L100.0100 #### [facility] [address] [place], [address] ALT [Catalytic activity/Vol] 26 U/L Normal 13-56 [facility] Comment on above: Performed By: #### L 500.4100, L501.9520, L506.1001, L500.4050, L506.0400, L100.0100 #### [facility] [address] [place], [address] AST [Catalytic activity/Vol] 19 U/L Normal 15-37 [facility] Comment on above: Performed By: #### L 500.4100, L501.9520, L506.1001, L500.4050, L506.0400, L100.0100 #### [facility] [address] [place], [address] Bilirubin [Mass/Vol] 0.50 mg/dL Normal 0.20-1.00 [facility] Comment on above: Result Comment: For patients on eltrombopag therapy, use of Dimension [place] TBIL is not recommended. Performed By: #### L 500.4100, L501.9520, L506.1001, L500.4050, L506.0400, L100.0100 #### [facility] [address] [place], [address] BUN/CRE 13.7 RATIO Normal 10-20 [facility] Comment on above: Performed By: #### L 500.4100, L501.9520, L506.1001, L500.4050, L506.0400, L100.0100 #### [facility] [address] [place], [address] CA,Total 9.8 mg/dL Normal 8.5-10.1 [facility] Comment on above: Performed By: #### L 500.4100, L501.9520, L506.1001, L500.4050, L506.0400, L100.0100 #### [facility] [address] [place], [address] Chloride [Moles/Vol] 102 mmol/L Normal 98-107 [facility] Comment on above: Performed By: #### L 500.4100, L501.9520, L506.1001, L500.4050, L506.0400, L100.0100 #### [facility] [address] [place], [address] CO2 [Moles/Vol] 29.0 mmol/L Normal 21.0-32.0 [facility] Comment on above: Performed By: #### L 500.4100, L501.9520, L506.1001, L500.4050, L506.0400, L100.0100 #### [facility] [address] [place], [address] Creatinine [Mass/Vol] 0.88 mg/dL Normal 0.55-1.02 [facility] Comment on above: Result Comment: The validity of the calculated GFR GFRAA in patients over 70 years has not been determined. Clinical correlation is essential. Performed By: #### L 500.4100, L501.9520, L506.1001, L500.4050, L506.0400, L100.0100 #### [facility] [address] [place], [address] EST GFR - AA 81 mL/min Normal >60 [facility] Comment on above: Result Comment: Afri can [place] GFR Calc Performed By: #### L 500.4100, L501.9520, L506.1001, L500.4050, L506.0400, L100.0100 #### [facility] [address] [place], [address] GAP 7 Normal 5-15 [facility] Comment on above: Performed By: #### L 500.4100, L501.9520, L506.1001, L500.4050, L506.0400, L100.0100 #### [facility] [address] [place], [address] GFR/1.73 sq M.predicted among non-blacks MDRD (S/P/Bld) [Vol rate/Area] 67 mL/min/{1.73_m2} Normal >60 [facility] Comment on above: Result Comment: Non- GFR Calc Performed By: #### L 500.4100, L501.9520, L506.1001, L500.4050, L506.0400, L100.0100 #### [facility] [address] [place], [address] Globulin (S) [Mass/Vol] 4.0 g/dL Normal 2.2-4.2 [facility] Comment on above: Performed By: #### L 500.4100, L501.9520, L506.1001, L500.4050, L506.0400, L100.0100 #### [facility] [address] [place], [address] Glucose [Mass/Vol] 116 mg/dL High 74-106 [facility] Comment on above: Result Comment: Fast ing Glucose result from 100 to 125 mg/dL suggests IMPAIRED HOMEOSTASIS per A.D.A. criteria. Performed By: #### L 500.4100, L501.9520, L506.1001, L500.4050, L506.0400, L100.0100 #### [facility] [address] [place], [address] Potassium [Moles/Vol] 3.6 mmol/L Normal 3.5-5.1 [facility] Comment on above: Performed By: #### L 500.4100, L501.9520, L506.1001, L500.4050, L506.0400, L100.0100 #### [facility] [address] [place], [address] Sodium [Moles/Vol] 138 mmol/L Normal 136-145 [facility] Comment on above: Performed By: #### L 500.4100, L501.9520, L506.1001, L500.4050, L506.0400, L100.0100 #### [facility] [address] [place], [address] T PROT 8.1 g/dL Normal 6.4-8.2 [facility] Comment on above: Performed By: #### L 500.4100, L501.9520, L506.1001, L500.4050, L506.0400, L100.0100 #### [facility] [address] [place], [address] Urea nitrogen [Mass/Vol] 12 mg/dL Normal 7-18 [facility] Comment on above: Performed By: #### L 500.4100, L501.9520, L506.1001, L500.4050, L506.0400, L100.0100 #### [facility] [address] [place], [address] Eosinophil percentageOrdered By: Radha Bonilla on 09-26-2024 Eosinophils/100 WBC (Bld) 1.1 % 0-5 [facility] Erythrocyte distribution wid th (RBC) [Ratio]Ordered By: Radha Bonilla on 09-26-2024 Erythrocyte distribution width (RBC) [Entitic vol] 53.7 fL High 35.1-43.9 [facility] Erythrocyte distribution wid th ratioOrdered By: Radha Bonilla on 09-26-2024 Erythrocyte distribution width (RBC) [Ratio] 15.0 % High 11.6-14.6 [facility] Estimated glomerular filtrat ion rate (GFR) AmericanOrdered By: Radha Bonilla on 09-26-2024 Estimated GFR (MDRD) Amer 81 mL/min >60 [facility] Comment on above: GFR Calc Glomerular filtration rate ( GFR) estimationOrdered By: Radha Bonilla on 09-26-2024 Estimated GFR (MDRD) Non-Af Amer 67 mL/min >60 [facility] Comment on above: Non- GFR Calc Glucose measurementOrdered B y: Radha Bonilla on 09-26-2024 Glucose [Mass/Vol] 116 mg/dL High 74-106 [facility] Comment on above: Fasting Glucose resu lt from 100 to 125 mg/dL suggests IMPAIRED HOMEOSTASIS per A.D.A. criteria. Hematocrit Auto (Bld) [Volum e fraction]Ordered By: Radha Bonilla on 09-26-2024 Hematocrit (Bld) [Volume fraction] 41.2 % 37-47 [facility] Hemoglobin measurementOrdere d By: Radha Bonilla on 09-26-2024 Hemoglobin (Bld) [Mass/Vol] 13.3 g/dL 12.0-15.0 [facility] Immature granulocytes/100 WB C Auto (Bld)Ordered By: Radha Bonilla on 09-26-2024 Immature granulocytes/100 WBC (Bld) 0.300 % 0.0-0.9 [facility] Comment on above: IG% - Immature Granu locytes (promyelocytes, myelocytes and metamyelocytes) > 1% indicates that a LEFT SHIFT is Present. Laboratory - Chemistry and C hemistry - challengeOrdered By: Radha Bonilla on 09-26-2024 AST [Catalytic activity/Vol] 19 U/L 15-37 [facility] Lymphocytes Auto (Unsp spec) [#/Vol]Ordered By: Radha Bonilla on 09-26-2024 Lymphocytes (Bld) [#/Vol] 1.69 10*3/uL 0.83-4.51 [facility] Lymphocytes/100 WBC Auto (Un sp spec)Ordered By: Radha Bonilla on 09-26-2024 Lymphocytes/100 WBC (Bld) 23.6 % 19-41 [facility] MCV (mean corpuscular volume ) determinationOrdered By: Radha Bonilla on 09-26-2024 MCV (RBC) [Entitic vol] 97.9 fL 81-99 [facility] Mean corpuscular hemoglobin (MCH) determinationOrdered By: Radha Bonilla on 09-26-2024 MCH (RBC) [Entitic mass] 31.6 pg 27.0-32.0 [facility] Mean corpuscular hemoglobin concentration (MCHC) determinationOrdered By: Radha Bonilla on 09-26-2024 MCHC (RBC) [Mass/Vol] 32.3 g/dL 32-36 [facility] [facility] Mean platelet volume determi nationOrdered By: Radha Bonilla on 09-26-2024 Platelet mean volume (Bld) [Entitic vol] 9.6 fL 6.2-12.0 [facility] Monocyte percentageOrdered B y: Radha Bonilla on 09-26-2024 Monocytes/100 WBC (Bld) 8.2 % 0-10 [facility] Neutrophil percentageOrdered By: Radha Bonilla on 09-26-2024 Neutrophils/100 WBC (Bld) 65.4 % 47-70 [facility] Nucleated red blood cell per centageOrdered By: Radha Bonilla on 09-26-2024 Nucleated RBC/100 WBC (Bld) [Ratio] 0 % 0-5 [facility] Platelet countOrdered By: Josr Bonilla on 09-26-2024 Platelets (Bld) [#/Vol] 415 10*3/uL 150-450 [facility] Potassium measurementOrdered By: Radha Bonilla on 09-26-2024 Potassium [Moles/Vol] 3.6 mmol/L 3.5-5.1 [facility] RBC Auto (Bld) [#/Vol]Ordere d By: Radha Bonilla on 09-26-2024 RBC (Bld) [#/Vol] 4.21 10*6/uL 4.2-5.4 [facility] Serum anion gap measurementO rdered By: Radha Bonilla on 09-26-2024 Anion gap [Moles/Vol] 7 mmol/L 5-15 [facility] Serum globulin measurementOr dered By: Radha Bonilla on 09-26-2024 Globulin (S) [Mass/Vol] 4.0 g/dL 2.2-4.2 [facility] Serum or plasma alanine cotton otransferase (ALT) measurementOrdered By: Radha Bonilla on 09-26-2024 ALT [Catalytic activity/Vol] 26 U/L 13-56 [facility] Serum or plasma albumin agustin urement (mass/volume)Ordered By: Radha Bonilla on 09-26-2024 Albumin [Mass/Vol] 4.1 g/dL 3.2-5.0 [facility] Serum or plasma alkaline aleks sphatase measurementOrdered By: Radha Bonilla on 09-26-2024 ALP [Catalytic activity/Vol] 85 U/L 45-117 [facility] Serum or plasma calcium agustin urement (mass/volume)Ordered By: Radha Bonilla on 09-26-2024 Calcium [Mass/Vol] 9.8 mg/dL 8.5-10.1 [facility] Serum or plasma creatinine m easurement (mass/volume)Ordered By: Radha Bonilla on 09-26-2024 Creatinine [Mass/Vol] 0.88 mg/dL 0.55-1.02 [facility] Comment on above: The validity of the calculated GFR & GFRAA in patients over 70 years has not been determined. Clinical correlation is essential. Serum or plasma urea nitroge n measurement (mass/volume)Ordered By: Radha Bonilla on 09-26-2024 Urea nitrogen [Mass/Vol] 12 mg/dL 7-18 [facility] Sodium levelOrdered By: Huntre Bonilla on 09-26-2024 Sodium [Moles/Vol] 138 mmol/L 136-145 [facility] Total proteinOrdered By: Juanito Bonilla on 09-26-2024 Protein [Mass/Vol] 8.1 g/dL 6.4-8.2 [facility] White blood cell (WBC) count Ordered By: Radha Bonilla on 09-26-2024 WBC (Bld) [#/Vol] 7.2 10*3/uL 4.4-11.0 [facility] SCRN MAMM (CAD)W/AJITH BILATo n 07-10-2024 SCRN MAMM (CAD)W/AJITH BILAT [facility] Imaging Services [address] [place], [place] [id number] SCRN MAMM (CAD)W/AJITH BILAT MR#: [id number] Acct: [id number] Name: ELENITA RASHEED Rep #: [id number] : 1950 F 73 From: James carney MD PCP: DEIRDRE Devine Status: [facility] Study: SCRN MAMM (CAD)W/AJITH BILAT Date of Exam: 06/12 10/03 Exam# [id number] Ordering Dr: Galilea Price MANAGER TERMINALDanae [id number] MAMMOGRAPHY - BILATERAL SCREENING REASON FOR EXAM: Female, 73 years old. Routine annual screening examination. PERTINENT HISTORY: Non-contributory. TECHNIQUE: Digital bilateral breast ajith (3D mammographic acquisition) in the CC and MLO projections. 2-D mediolateral oblique (MLO) and craniocaudad (CC) views of both breasts were obtained. CAD: Full Field Digital Mammography with Computer Added Detection was performed. COMPARISON: Comparison is made with prior study dated February 09, 2023 and February 08, 2022. FINDINGS: Breast Composition: The breasts are heterogeneously dense, which may obscure small masses. There are no dominant masses or suspicious calcifications. No other significant abnormalities are identified. There has been no significant change since the prior study. BI/SCRN MAMM (CAD)W/AJITH BILAT IMPRESSION: Stable bilateral screening mammogram. Yearly follow-up mammogram recommended. (A) ASSESSMENT CATEGORY: BIRADS Category 1: Negative. A letter regarding these results will be sent to the patient by the facility within 30 days. Approximately 10% of breast cancers are not detected by mammography. A normal mammogram should not delay biopsy of a clinically suspicious abnormality. [id number] Electronically Signed: James Chávez MD at 14:19 EDT , CC: DEIRDRE Price Electrical High Tension Tester: Signed Normal [facility] CBC W/Diff, Automatedon 10-2 Absolute Lymph 1.77 X10 3/uL Normal 0.83-4.51 [facility] Comment on above: Performed By: #### L 500.4050, L100.0100 #### [facility] [address] [place], [address] Absolute Neut 3.9 X10 3/uL Normal 2.0-7.7 [facility] Comment on above: Performed By: #### L 500.4050, L100.0100 #### [facility] [address] [place], [address] Basophils/100 WBC (Bld) 1.7 % High 0-1 [facility] Comment on above: Performed By: #### L 500.4050, L100.0100 #### [facility] [address] [place], [address] Eosinophils/100 WBC (Bld) 1.4 % Normal 0-5 [facility] Comment on above: Performed By: #### L 500.4050, L100.0100 #### [facility] [address] [place], [address] Erythrocyte distribution width (RBC) [Ratio] 13.4 % Normal 11.6-14.6 [facility] Comment on above: Performed By: #### L 500.4050, L100.0100 #### [facility] [address] [place], [address] Hematocrit (Bld) [Volume fraction] 39.7 % Normal 37-47 [facility] Comment on above: Performed By: #### L 500.4050, L100.0100 #### [facility] [address] [place], [address] Hemoglobin (Bld) [Mass/Vol] 13.4 g/dL Normal 12.0-15.0 [facility] Comment on above: Performed By: #### L 500.4050, L100.0100 #### [facility] [address] [place], [address] IG% 0.200 Normal 0.0-0.9 [facility] Comment on above: Result Comment: IG% - Immature Granulocytes (promyelocytes, myelocytes and metamyelocytes) > 1% indicates that a LEFT SHIFT is Present. Performed By: #### L 500.4050, L100.0100 #### [facility] [address] [place], [address] Lymphocytes/100 WBC (Bld) 27.5 % Normal 19-41 [facility] Comment on above: Performed By: #### L 500.4050, L100.0100 #### [facility] [address] [place], [address] MCH (RBC) [Entitic mass] 32.8 pg High 27.0-32.0 [facility] Comment on above: Performed By: #### L 500.4050, L100.0100 #### [facility] [address] [place], [address] MCHC (RBC) [Mass/Vol] 33.8 g/dL Normal 32-36 [facility] Comment on above: Performed By: #### L 500.4050, L100.0100 #### [facility] [address] [place], [address] MCV (RBC) [Entitic vol] 97.3 fL Normal 81-99 [facility] Comment on above: Performed By: #### L 500.4050, L100.0100 #### [facility] [address] [place], [address] Monocytes/100 WBC (Bld) 9.2 % Normal 0-10 [facility] Comment on above: Performed By: #### L 500.4050, L100.0100 #### [facility] [address] [place], [address] Neutrophils/100 WBC (Bld) 60.0 % Normal 47-70 [facility] Comment on above: Performed By: #### L 500.4050, L100.0100 #### [facility] [address] [place], [address] Nucleated RBC (Bld) [#/Vol] 0 10*3/uL Normal 0-5 [facility] Comment on above: Performed By: #### L 500.4050, L100.0100 #### [facility] [address] [place], [address] Platelet mean volume (Bld) [Entitic vol] 10.0 fL Normal 6.2-12.0 [facility] Comment on above: Performed By: #### L 500.4050, L100.0100 #### [facility] [address] [place], [address] Platelets (Bld) [#/Vol] 330 10*3/uL Normal 150-450 [facility] Comment on above: Performed By: #### L 500.4050, L100.0100 #### [facility] [address] [place], [address] RBC (Bld) [#/Vol] 4.08 10*6/uL Low 4.2-5.4 [facility] Comment on above: Performed By: #### L 500.4050, L100.0100 #### [facility] [address] [place], [address] RDW SD 47.9 fl High 35.1-43.9 [facility] Comment on above: Performed By: #### L 500.4050, L100.0100 #### [facility] [address] [place], [address] WBC (Bld) [#/Vol] 6.4 10*3/uL Normal 4.4-11.0 [facility] Comment on above: Performed By: #### L 500.4050, L100.0100 #### [facility] [address] [place], [address] [facility] 06-30-2024 Albumin [Mass/Vol] 4.1 g/dL Normal 3.2-5.0 [facility] Comment on above: Performed By: #### L 500.4050, L100.0100 #### [facility] [address] [place], [address] Albumin/Globulin [Mass ratio] 1.1 {ratio} Normal 0.9-2.4 [facility] Comment on above: Performed By: #### L 500.4050, L100.0100 #### [facility] [address] [place], [address] ALK P 68 U/L Normal 45-117 [facility] Comment on above: Performed By: #### L 500.4050, L100.0100 #### [facility] [address] [place], [address] ALT [Catalytic activity/Vol] 31 U/L Normal 13-56 [facility] Comment on above: Performed By: #### L 500.4050, L100.0100 #### [facility] [address] [place], [address] AST [Catalytic activity/Vol] 18 U/L Normal 15-37 [facility] Comment on above: Performed By: #### L 500.4050, L100.0100 #### [facility] [address] [place], [address] Bilirubin [Mass/Vol] 0.40 mg/dL Normal 0.20-1.00 [facility] Comment on above: Result Comment: For patients on eltrombopag therapy, use of Dimension Oxford TBIL is not recommended. Performed By: #### L 500.4050, L100.0100 #### [facility] [address] [place], [address] BUN/CRE 14.3 RATIO Normal 10-20 [facility] Comment on above: Performed By: #### L 500.4050, L100.0100 #### [facility] [address] [place], [address] CA,Total 10.2 mg/dL High 8.5-10.1 [facility] Comment on above: Performed By: #### L 500.4050, L100.0100 #### [facility] [address] [place], [address] Chloride [Moles/Vol] 102 mmol/L Normal 98-107 [facility] Comment on above: Performed By: #### L 500.4050, L100.0100 #### [facility] [address] [place], [address] CO2 [Moles/Vol] 29.0 mmol/L Normal 21.0-32.0 [facility] Comment on above: Performed By: #### L 500.4050, L100.0100 #### [facility] [address] [place], [address] Creatinine [Mass/Vol] 0.84 mg/dL Normal 0.55-1.02 [facility] Comment on above: Result Comment: The validity of the calculated GFR GFRAA in patients over 70 years has not been determined. Clinical correlation is essential. Performed By: #### L 500.4050, L100.0100 #### [facility] [address] [place], [address] EST GFR - AA 86 mL/min Normal >60 [facility] Comment on above: Result Comment: Afri can [place] GFR Calc Performed By: #### L 500.4050, L100.0100 #### [facility] [address] [place], [address] GAP 5 Normal 5-15 [facility] Comment on above: Performed By: #### L 500.4050, L100.0100 #### [facility] [address] [place], [address] GFR/1.73 sq M.predicted among non-blacks MDRD (S/P/Bld) [Vol rate/Area] 71 mL/min/{1.73_m2} Normal >60 [facility] Comment on above: Result Comment: Non- GFR Calc Performed By: #### L 500.4050, L100.0100 #### [facility] [address] [place], [address] Globulin (S) [Mass/Vol] 3.9 g/dL Normal 2.2-4.2 [facility] Comment on above: Performed By: #### L 500.4050, L100.0100 #### [facility] [address] [place], [address] Glucose [Mass/Vol] 104 mg/dL Normal 74-106 [facility] Comment on above: Result Comment: Fast ing Glucose result from 100 to 125 mg/dL suggests IMPAIRED HOMEOSTASIS per A.D.A. criteria. Performed By: #### L 500.4050, L100.0100 #### [facility] [address] [place], [address] Potassium [Moles/Vol] 3.8 mmol/L Normal 3.5-5.1 [facility] Comment on above: Performed By: #### L 500.4050, L100.0100 #### [facility] [address] [place], [address] Sodium [Moles/Vol] 136 mmol/L Normal 136-145 [facility] Comment on above: Performed By: #### L 500.4050, L100.0100 #### [facility] [address] [place], [address] T PROT 8.0 g/dL Normal 6.4-8.2 [facility] Comment on above: Performed By: #### L 500.4050, L100.0100 #### [facility] [address] [place], [address] Urea nitrogen [Mass/Vol] 12 mg/dL Normal 7-18 [facility] Comment on above: Performed By: #### L 500.4050, L100.0100 #### [facility] [address] [place], [address] Knee 4 or More Viewson 04-17 Knee 4 or More Views [facility] Imaging Services [address] [place] [address] Knee 4 or More Views MR#: [id number] Acct: [id number] Name: ELENITA RASHEED Rep #: [id number] : 1950 F 73 From: Fantasma Gan MD PCP: Galilea Albert, MANAGER TERMINAL-C Status: REG CLI Study: Knee 4 or More Views Date of Exam: 04/17/24 Exam# [id number] Ordering Dr: Radha Bonilla MD [id number] STUDY: X-RAY - RIGHT KNEE REASON FOR EXAM: Female, 73 years old. Bilateral primary osteoarthritis of knee. TECHNIQUE: 4 views of the right knee. COMPARISON: None. FINDINGS: Normal visualized distal femur. Normal visualized proximal tibia and fibula. Normal proximal tibiofibular articulation. There is no demonstrated fracture. There is moderate degenerative arthrosis of the medial femorotibial compartment with moderate joint space narrowing. There is mild degenerative arthrosis of the lateral femorotibial compartment. There is mild degenerative arthrosis of the patellofemoral articulation. There is a moderate volume joint effusion. The soft tissue structures are unremarkable. RAD/Knee 4 or More Views IMPRESSION: Tricompartment degenerative arthrosis, most pronounced in the medial femorotibial compartment. Moderate joint effusion. No demonstrated fracture. Electronically Signed: Fantasma Gan MD at 11:57 EDT Reading Location ID and State: [address] [place] [address] , Service support , CC: MANAGER TERMINAL-C Galilea Price; Dr. Radha Bonilla MD Electrical High Tension Tester: Signed Normal [facility] Knee 4 or More Views [facility] Imaging Services [address] [place] [id number] Knee 4 or More Views MR#: [id number] Acct: [id number] Name: ELENITA RASHEED Rep #: [id number] : 1950 F 73 From: Fantasma Gan MD PCP: Galilea Price, MANAGER TERMINAL-C Status: REG CLI Study: Knee 4 or More Views Date of Exam: 04/17/24 Exam# [id number] Ordering Dr: Radha Bonilla MD [id number] STUDY: X-RAY - LEFT KNEE REASON FOR EXAM: Female, 73 years old. Bilateral primary osteoarthritis of knee TECHNIQUE: 4 views of the left knee. COMPARISON: None. FINDINGS: Normal visualized distal femur. Normal visualized proximal tibia and fibula. Normal proximal tibiofibular articulation. There is no demonstrated fracture. There is mild degenerative arthrosis of the medial femorotibial compartment. There is mild degenerative arthrosis of the lateral femorotibial compartment. There is mild degenerative arthrosis of the patellofemoral articulation. There is chondrocalcinosis of the medial and lateral menisci. There is a suspected 7 mm calcified loose body located medial to the medial tibial plateau. There is a small left knee joint effusion. The soft tissue structures are unremarkable. RAD/Knee 4 or More Views IMPRESSION: Mild tricompartment degenerative arthrosis. Small knee joint effusion. Suspected 7 mm calcified loose body located medial to the medial tibial plateau. Electronically Signed: Fantasma Gan MD at 15:10 EDT Reading Location ID and State: [address] [place] [address] , Service support , CC: DEIRDRE Price; Dr. Radha Bonilla MD Electrical High Tension Tester: Signed Normal [facility] CBC W/Diff, Automatedon 07-3 Absolute Lymph 1.58 X10 3/uL Normal 0.83-4.51 [facility] Comment on above: Performed By: #### L 100.0100, L500.4050 #### [facility] [address] [place], [place], [id number] Absolute Neut 4.5 X10 3/uL Normal 2.0-7.7 [facility] Comment on above: Performed By: #### L 100.0100, L500.4050 #### [facility] [address] [place], [address] Basophils/100 WBC (Bld) 1.3 % High 0-1 [facility] Comment on above: Performed By: #### L 100.0100, L500.4050 #### [facility] [address] [place], [address] Eosinophils/100 WBC (Bld) 1.4 % Normal 0-5 [facility] Comment on above: Performed By: #### L 100.0100, L500.4050 #### [facility] [address] [place], [address] Erythrocyte distribution width (RBC) [Ratio] 14.8 % High 11.6-14.6 [facility] Comment on above: Performed By: #### L 100.0100, L500.4050 #### [facility] [address] [place], [address] Hematocrit (Bld) [Volume fraction] 39.2 % Normal 37-47 [facility] Comment on above: Performed By: #### L 100.0100, L500.4050 #### [facility] [address] [place], [address] Hemoglobin (Bld) [Mass/Vol] 13.0 g/dL Normal 12.0-15.0 [facility] Comment on above: Performed By: #### L 100.0100, L500.4050 #### [facility] [address] [place], [address] IG% 0.300 Normal 0.0-0.9 [facility] Comment on above: Result Comment: IG% - Immature Granulocytes (promyelocytes, myelocytes and metamyelocytes) > 1% indicates that a LEFT SHIFT is Present. Performed By: #### L 100.0100, L500.4050 #### [facility] [address] [place], [address] Lymphocytes/100 WBC (Bld) 22.7 % Normal 19-41 [facility] Comment on above: Performed By: #### L 100.0100, L500.4050 #### [facility] [address] [place], [address] MCH (RBC) [Entitic mass] 32.5 pg High 27.0-32.0 [facility] Comment on above: Performed By: #### L 100.0100, L500.4050 #### [facility] [address] [place], [address] MCHC (RBC) [Mass/Vol] 33.2 g/dL Normal 32-36 [facility] Comment on above: Performed By: #### L 100.0100, L500.4050 #### [facility] [address] [place], [address] MCV (RBC) [Entitic vol] 98.0 fL Normal 81-99 [facility] Comment on above: Performed By: #### L 100.0100, L500.4050 #### [facility] [address] [place], [address] Monocytes/100 WBC (Bld) 8.9 % Normal 0-10 [facility] Comment on above: Performed By: #### L 100.0100, L500.4050 #### [facility] [address] [place], [address] Neutrophils/100 WBC (Bld) 65.4 % Normal 47-70 [facility] Comment on above: Performed By: #### L 100.0100, L500.4050 #### [facility] [address] [place], [address] Nucleated RBC (Bld) [#/Vol] 0 10*3/uL Normal 0-5 [facility] Comment on above: Performed By: #### L 100.0100, L500.4050 #### [facility] [address] [place], [address] Platelet mean volume (Bld) [Entitic vol] 9.9 fL Normal 6.2-12.0 [facility] Comment on above: Performed By: #### L 100.0100, L500.4050 #### [facility] [address] [place], [address] Platelets (Bld) [#/Vol] 340 10*3/uL Normal 150-450 [facility] Comment on above: Performed By: #### L 100.0100, L500.4050 #### [facility] [address] [place], [address] RBC (Bld) [#/Vol] 4.00 10*6/uL Low 4.2-5.4 [facility] Comment on above: Performed By: #### L 100.0100, L500.4050 #### [facility] [address] [place], [address] RDW SD 53.1 fl High 35.1-43.9 [facility] Comment on above: Performed By: #### L 100.0100, L500.4050 #### [facility] [address] [place], [address] WBC (Bld) [#/Vol] 7.0 10*3/uL Normal 4.4-11.0 [facility] Comment on above: Performed By: #### L 100.0100, L500.4050 #### [facility] [address] [place], [address] [facility] 04-09-2024 Albumin [Mass/Vol] 4.3 g/dL Normal 3.2-5.0 [facility] Comment on above: Performed By: #### L 100.0100, L500.4050 #### [facility] [address] [place], [address] Albumin/Globulin [Mass ratio] 1.1 {ratio} Normal 0.9-2.4 [facility] Comment on above: Performed By: #### L 100.0100, L500.4050 #### [facility] [address] [place], [address] ALK P 66 U/L Normal 45-117 [facility] Comment on above: Performed By: #### L 100.0100, L500.4050 #### [facility] [address] [place], [address] ALT [Catalytic activity/Vol] 27 U/L Normal 13-56 [facility] Comment on above: Performed By: #### L 100.0100, L500.4050 #### [facility] [address] [place], [address] AST [Catalytic activity/Vol] 25 U/L Normal 15-37 [facility] Comment on above: Performed By: #### L 100.0100, L500.4050 #### [facility] [address] [place], [address] Bilirubin [Mass/Vol] 0.30 mg/dL Normal 0.20-1.00 [facility] Comment on above: Result Comment: For patients on eltrombopag therapy, use of Dimension [place] TBIL is not recommended. Performed By: #### L 100.0100, L500.4050 #### [facility] [address] [place], [address] BUN/CRE 21.3 RATIO High 10-20 [facility] Comment on above: Performed By: #### L 100.0100, L500.4050 #### [facility] [address] [place], [address] CA,Total 9.8 mg/dL Normal 8.5-10.1 [facility] Comment on above: Performed By: #### L 100.0100, L500.4050 #### [facility] [address] [place], [address] Chloride [Moles/Vol] 100 mmol/L Normal 98-107 [facility] Comment on above: Performed By: #### L 100.0100, L500.4050 #### [facility] [address] [place], [address] CO2 [Moles/Vol] 29.0 mmol/L Normal 21.0-32.0 [facility] Comment on above: Performed By: #### L 100.0100, L500.4050 #### [facility] [address] [place], [address] Creatinine [Mass/Vol] 0.80 mg/dL Normal 0.55-1.02 [facility] Comment on above: Result Comment: The validity of the calculated GFR GFRAA in patients over 70 years has not been determined. Clinical correlation is essential. Performed By: #### L 100.0100, L500.4050 #### [facility] [address] [place], [address] EST GFR - AA 91 mL/min Normal >60 [facility] Comment on above: Result Comment: Afri can [place] GFR Calc Performed By: #### L 100.0100, L500.4050 #### [facility] [address] [place], [address] GAP 7 Normal 5-15 [facility] Comment on above: Performed By: #### L 100.0100, L500.4050 #### [facility] [address] [place], [address] GFR/1.73 sq M.predicted among non-blacks MDRD (S/P/Bld) [Vol rate/Area] 75 mL/min/{1.73_m2} Normal >60 [facility] Comment on above: Result Comment: Non- GFR Calc Performed By: #### L 100.0100, L500.4050 #### [facility] [address] [place], [address] Globulin (S) [Mass/Vol] 3.8 g/dL Normal 2.2-4.2 [facility] Comment on above: Performed By: #### L 100.0100, L500.4050 #### [facility] [address] [place], [address] Glucose [Mass/Vol] 114 mg/dL High 74-106 [facility] Comment on above: Result Comment: Fast ing Glucose result from 100 to 125 mg/dL suggests IMPAIRED HOMEOSTASIS per A.D.A. criteria. Performed By: #### L 100.0100, L500.4050 #### [facility] [address] [place], [address] Potassium [Moles/Vol] 4.2 mmol/L Normal 3.5-5.1 [facility] Comment on above: Performed By: #### L 100.0100, L500.4050 #### [facility] [address] [place], [address] Sodium [Moles/Vol] 136 mmol/L Normal 136-145 [facility] Comment on above: Performed By: #### L 100.0100, L500.4050 #### [facility] [address] [place], [address] T PROT 8.1 g/dL Normal 6.4-8.2 [facility] Comment on above: Performed By: #### L 100.0100, L500.4050 #### [facility] [address] [place], [address] Urea nitrogen [Mass/Vol] 17 mg/dL Normal 7-18 [facility] Comment on above: Performed By: #### L 100.0100, L500.4050 #### [facility] [address] [place], [address] CBC W Auto Differential pane l (Bld)on 02-27-2024 Basophils (Bld) [#/Vol] 0.13 10*3/uL High <0.[address] [facility] Comment on above: Order Comment: Speci men Type: BLOOD SPECIMEN Ordering Facility: [facility] Address: [address] [place] [address] Performed By: #### 5 7021-8 #### [facility] CLIA [id number] [address] [place] [address] [place] Basophils/100 WBC (Bld) 1.3 % Normal [facility] Comment on above: Order Comment: Speci men Type: BLOOD SPECIMEN Ordering Facility: [facility] Address: [address] [place] [address] Performed By: #### 5 7021-8 #### [facility] CLIA [id number] [address] [place] [address] [place] Differential cell count method Nom (Bld) Auto Normal [facility] Comment on above: Order Comment: Speci men Type: BLOOD SPECIMEN Ordering Facility: [facility] Address: [address] [place] [address] Performed By: #### 5 7021-8 #### [facility] CLIA [id number] [address] [place] [address] [place] Eosinophils (Bld) [#/Vol] 0.05 10*3/uL Normal <0.[address] [facility] Comment on above: Order Comment: Speci men Type: BLOOD SPECIMEN Ordering Facility: [facility] Address: [address] [place] [address] Performed By: #### 5 7021-8 #### [facility] CLIA [id number] [address] [place] [address] [place] Eosinophils/100 WBC (Bld) 0.5 % Normal [facility] Comment on above: Order Comment: Speci men Type: BLOOD SPECIMEN Ordering Facility: [facility] Address: [address] [place] [address] Performed By: #### 5 7021-8 #### [facility] CLIA [id number] [address] [place] [address] [place] Erythrocyte distribution width (RBC) [Ratio] 14.3 % Normal 11.5-15.[address] [facility] Comment on above: Order Comment: Speci men Type: BLOOD SPECIMEN Ordering Facility: [facility] Address: [address] [place] [address] Performed By: #### 5 7021-8 #### [facility] CLIA [id number] [address] [place] [address] [place] Hematocrit (Bld) [Volume fraction] 38.6 % Normal 36.0-46.[address] [facility] Comment on above: Order Comment: Speci men Type: BLOOD SPECIMEN Ordering Facility: [facility] Address: [address] [place] [address] Performed By: #### 5 7021-8 #### [facility] CLIA [id number] [address] [place] [address] [place] Hemoglobin (Bld) [Mass/Vol] 13.1 g/dL Normal 11.5-15.[address] [facility] Comment on above: Order Comment: Speci men Type: BLOOD SPECIMEN Ordering Facility: [facility] Address: [address] [place] [address] Performed By: #### 5 7021-8 #### [facility] CLIA [id number] [address] [place] [address] [place] Immature granulocytes (Bld) [#/Vol] 0.04 10*3/uL Normal <0.[address] [facility] Comment on above: Order Comment: Speci men Type: BLOOD SPECIMEN Ordering Facility: [facility] Address: [address] [place] [address] Performed By: #### 5 7021-8 #### [facility] CLIA [id number] [address] [place] [address] [place] Immature granulocytes/100 WBC (Bld) 0.4 % Normal [facility] Comment on above: Order Comment: Speci men Type: BLOOD SPECIMEN Ordering Facility: [facility] Address: [address] [place] [address] Performed By: #### 5 7021-8 #### [facility] CLIA [id number] [address] [place] [address] [place] Lymphocytes (Bld) [#/Vol] 2.14 10*3/uL Normal 1.00-4.[address] [facility] Comment on above: Order Comment: Speci men Type: BLOOD SPECIMEN Ordering Facility: [facility] Address: [address] [place] [address] Performed By: #### 5 7021-8 #### [facility] CLIA [id number] [address] [place] [address] [place] Lymphocytes/100 WBC (Bld) 21.0 % Normal [facility] Comment on above: Order Comment: Speci men Type: BLOOD SPECIMEN Ordering Facility: [facility] Address: [address] [place] [address] Performed By: #### 5 7021-8 #### [id number] [address] [place] [address] [place] MCH (RBC) [Entitic mass] 32.3 pg Normal 26.0-34.[address] [facility] Comment on above: Order Comment: Speci men Type: BLOOD SPECIMEN Ordering Facility: [facility] Address: [address] [place] [address] Performed By: #### 5 7021-8 #### [facility] CLIA [id number] [address] [place] [address] [place] MCHC (RBC) [Mass/Vol] 33.9 g/dL Normal 30.5-36.0 [facility] Comment on above: Order Comment: Speci men Type: BLOOD SPECIMEN Ordering Facility: [facility] Address: [address] [place] [address] Performed By: #### 5 7021-8 #### [facility] CLIA [id number] [address] [place] [address] [place] MCV (RBC) [Entitic vol] 95.3 fL Normal 80.0-100.0 [facility] Comment on above: Order Comment: Speci men Type: BLOOD SPECIMEN Ordering Facility: [facility] Address: [address] [place] [address] Performed By: #### 5 7021-8 #### [facility] CLIA [id number] [address] [place] [address] [place] Monocytes (Bld) [#/Vol] 0.73 10*3/uL Normal <0.[address] [facility] Comment on above: Order Comment: Speci men Type: BLOOD SPECIMEN Ordering Facility: [facility] Address: [address] [place] [address] Performed By: #### 5 7021-8 #### [facility] CLIA [id number] [address] [place] [address] [place] Monocytes/100 WBC (Bld) 7.2 % Normal [facility] Comment on above: Order Comment: Speci men Type: BLOOD SPECIMEN Ordering Facility: [facility] Address: [address] [place] [address] Performed By: #### 5 7021-8 #### [facility] CLIA [id number] [address] [place] [address] [place] Neutrophils (Bld) [#/Vol] 7.10 10*3/uL Normal 1.45-7.[address] [facility] Comment on above: Order Comment: Speci men Type: BLOOD SPECIMEN Ordering Facility: [facility] Address: [address] [place], [place] [address] Performed By: #### 5 7021-8 #### [facility] CLIA [id number] [address] [place] [address] [place] Neutrophils/100 WBC (Bld) 69.6 % Normal [facility] Comment on above: Order Comment: Speci men Type: BLOOD SPECIMEN Ordering Facility: [facility] Address: [address] [place] [address] Performed By: #### 5 7021-8 #### [facility] CLIA [id number] [address] [place] [address] [place] Nucleated RBC (Bld) [#/Vol] 10*3/uL Normal <0.[address] [facility] Comment on above: Order Comment: Speci men Type: BLOOD SPECIMEN Ordering Facility: [facility] Address: [address] [place] [address] Performed By: #### 5 7021-8 #### [facility] CLIA [id number] [address] [place] [address] [place] Nucleated RBC/100 WBC (Bld) [Ratio] 0.0 /100 WBC Normal [facility] Comment on above: Order Comment: Speci men Type: BLOOD SPECIMEN Ordering Facility: [facility] Address: [address] [place] [address] Performed By: #### 5 7021-8 #### [facility] CLIA [id number] [address] [place] [address] [place] Platelet mean volume (Bld) [Entitic vol] 9.0 fL Normal 9.0-12.[address] [facility] Comment on above: Order Comment: Speci men Type: BLOOD SPECIMEN Ordering Facility: [facility] Address: [address] [place] [address] Performed By: #### 5 7021-8 #### [facility] CLIA [id number] [address] [place] [address] [place] Platelets (Bld) [#/Vol] 325 10*3/uL Normal 150-[address] [facility] Comment on above: Order Comment: Speci men Type: BLOOD SPECIMEN Ordering Facility: [facility] Address: [address] [place] [address] Performed By: #### 5 7021-8 #### [facility] CLIA [id number] [address] [place] [address] [place] RBC (Bld) [#/Vol] 4.05 10*6/uL Normal 3.90-5.20 [facility] Comment on above: Order Comment: Speci men Type: BLOOD SPECIMEN Ordering Facility: [facility] Address: [address] [place] [address] Performed By: #### 5 7021-8 #### [facility] CLIA [id number] [address] [place] [address] [place] WBC (Bld) [#/Vol] 10.19 10*3/uL Normal 3.70-11.00 [facility] Comment on above: Order Comment: Speci men Type: BLOOD SPECIMEN Ordering Facility: [facility] Address: [address] [place] [address] Performed By: #### 5 7021-8 #### [facility] CLIA [id number] [address] [place] [address] [place] CNOVSPon 02-27-2024 CNOVSP Visit (SP) Office (HEMAWS) ELENITA RASHEED ([id number]) 1950 F Date Time Provider Department 02/27/24 1:20 PM LUI FERRIS During your visit today, we recorded the following information about you: Temperature Pulse Blood pressure Weight 97.6 degrees 88/minute 150/86 71.2 kg Height 1.6 m Lui Ferris MD 02/27/2024 3:11 PM Signed HISTORY OF PRESENT ILLNESS: Elenita Haines is a 73 year old female history LGL diagnosed [address] Marti when presented with long standing neutropenia. She underwent bone marrow biopsy which rendered diagnosis. She has been observed since that time, with actual resolution of cytopenias. She has received methotrexate for treatment of her rheumatoid arthritis, which has likely also benefited her hematologic condition. She is here for follow up, doing well, no infections. Notes some mouth sores since last visit, attributes to methotrexate. CLINICAL IMPRESSION: LGL in remission RECOMMENDATION/PLAN: 1. Watch cbc, back in 1 year, sooner as indicated. Written and verbal health teaching given to patient, patient verbalizes understanding and agrees with treatment plan. PAST MEDICAL HISTORY Diagnosis Date Abdominal pain, left lower quadrant Abnormal glandular Papanicolaou smear of cervix Abn. 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 Snoring Unspecified asthma(493.90) Unspecified hypothyroidism Hypothyroidism PAST SURGICAL HISTORY Procedure Laterality Date CATARACT EXTRACTION HX Right 07/24/2019 CATARACT EXTRACTION HX Left 08/06/2019 DELIVERY ONLY , low cervical COLONOSCOPY FLX DX W/COLLJ SPEC WHEN PFRMD 08/30/2006 repeat in CONIZATION CERVIX W/WO DANDC RPR ELTRD EXC 2000 LEEP-Cervix ENDOMETRIAL BX W/WO ENDOCERVIX BX W/O DILAT SPX 10/16/03 disordered proliferative endometrium PAST SURGICAL HISTORY OF foot surgery PAST SURGICAL HISTORY OF repair of right middle finger lac PAST SURGICAL HISTORY OF 09/19/2005 rotator cuff repair right FAMILY HISTORY Problem Relation Age of Onset Diabetes Mother Diabetes Father Heart disease Father other (corneal transplant) Father other (Blood disorder) Paternal Grandmother Social History Tobacco Use Smoking status: Never Smokeless tobacco: Never Vaping Use Vaping Use: Never used Substance Use Topics Alcohol use: No Drug use: No ALLERGIES: ALLERGIES Allergen Reactions Adhesive Tape (Maye* Rash, Itching, Other: See Comments Bruising Animal Dander Bandaids [Other] Bees Dust Emyacin [Other] Flu Vaccine [Other] Unknown Pt had flu vaccine on 07/23/18 AND no problems or reactions. Grass Pollen Iodinated Contrast * GI Upset Headache, nausea Latex Mildew Mold Norflex [Orphenadri* all muscle relaxants Penicillins Ragweed Sulfa (Sulfonamide * Tcn [Tetracyclines] Tetanus Vaccines An* CURRENT OUTPATIENT MEDICATIONS: leucovorin (LEUCOVORIN) 15 mg tablet Take 15 mg by mouth one time a week. latanoprost (XALATAN) 0.005 % ophthalmic solution Use 1 Drop in both eyes daily at bedtime. OTC PRODUCT Hempvana Cream [...] OCEAN) 0.65 % nasal spray Use 1 [place] in the nose as needed. therapeutic multivitamin (THERA VITAMIN) tablet Take 1 tablet by mouth once daily. guaifenesin/dextromet horphan (MUCINEX DM ORAL) Take 1 tablet by mouth twice daily as needed. pravastatin 20 mg tablet Take 1 tablet by mouth every evening. EPINEPHrine (EPIPEN) 0.3 mg/0.3 mL (1:1,000) PnIj Use as directed diphenhydramine hcl(BENADRYL 25 MG CAP) Take 100 mg by mouth as needed. SOOTHE 1 %-4.5 % EYE DROPS Use 1 Drop in both eyes as needed. OTC PRODUCT Hempvana Cream: One application as needed for pain. (Patient not taking: Reported on 01/18/2023) traZODone 50 mg tablet Take 2 tablets by mouth daily at bedtime. (Patient not taking: Reported on 01/18/2023) (more content not included)... Normal [facility] Absolute lymphocyte countOrd ered By: Radha Bonilla on 01-14-2024 Lymphocytes Auto (Unsp spec) [#/Vol] 1.40 10*3/uL 0.83-4.51 [facility] Automated lymphocyte count a s percentage of total leukocytesOrdered By: Radha Bonilla on 01-14-2024 Lymphocytes/100 WBC Auto (Unsp spec) 15.4 % 19-41 [facility] Basophil percentageOrdered B y: Radha Bonilla on 01-14-2024 Basophils/100 WBC (Bld) 1.0 % 0-1 [facility] Bilirubin [Mass/Vol] 0.50 mg/dL 0.20-1.00 [facility] Comment on above: For patients on eltr ombopag therapy, use of Dimension [place] TBIL is not recommended. Chloride [Moles/Vol] 102 mmol/L 98-107 [facility] Eosinophils/100 WBC (Bld) 0.7 % 0-5 [facility] Glucose [Mass/Vol] 116 mg/dL 74-106 [facility] Comment on above: Fasting Glucose resu lt from 100 to 125 mg/dL suggests IMPAIRED HOMEOSTASIS per A.D.A. criteria. Hemoglobin (Bld) [Mass/Vol] 12.8 g/dL 12.0-15.0 [facility] Monocytes/100 WBC (Bld) 7.5 % 0-10 [facility] Neutrophils (Bld) [#/Vol] 6.8 10*3/uL 2.0-7.7 [facility] Neutrophils/100 WBC (Bld) 75.0 % 47-70 [facility] Potassium [Moles/Vol] 4.4 mmol/L 3.5-5.1 [facility] Protein [Mass/Vol] 7.6 g/dL 6.4-8.2 [facility] Sodium [Moles/Vol] 138 mmol/L 136-145 [facility] WBC (Bld) [#/Vol] 9.1 10*3/uL 4.4-11.0 [facility] Determination of erythrocyte mean corpuscular volume (MCV)Ordered By: Radha Bonilla on 01-14-2024 MCV (RBC) [Entitic vol] 98.7 fL 81-99 [facility] Erythrocyte distribution wid th ratioOrdered By: Radha Bonilla on 01-14-2024 Erythrocyte distribution width (RBC) [Ratio] 14.3 % 11.6-14.6 [facility] Erythrocyte distribution wid th standard deviationOrdered By: Radha Bonilla on 01-14-2024 Erythrocyte distribution width (RBC) [Entitic vol] 51.5 fL 35.1-43.9 [facility] Hematocrit Auto (Bld) [Volum e fraction]Ordered By: Radha Bonilla on 01-14-2024 Hematocrit (Bld) [Volume fraction] 39.0 % 37-47 [facility] Immature granulocytes/100 WB C Auto (Bld)Ordered By: Radha Bonilla on 01-14-2024 Immature granulocytes/100 WBC (Bld) 0.400 % 0.0-0.9 [facility] Comment on above: IG% - Immature Granu locytes (promyelocytes, myelocytes and metamyelocytes) > 1% indicates that a LEFT SHIFT is Present. Laboratory - Chemistry and C hemistry - challengeOrdered By: Radha Bonilla on 01-14-2024 Albumin/Globulin [Mass ratio] 1.1 {ratio} 0.9-2.4 [facility] ALP [Catalytic activity/Vol] 69 U/L 45-117 [facility] ALT [Catalytic activity/Vol] 34 U/L 13-56 [facility] CO2 [Moles/Vol] 32.0 mmol/L 21.0-32.0 [facility] Globulin (S) [Mass/Vol] 3.7 g/dL 2.2-4.2 [facility] Urea nitrogen/Creatinine [Mass ratio] 14.2 mg/mg 10-20 [facility] - Hematology and Cell countsOrdered By: Radha Boinlla on 01-14-2024 MCH (RBC) [Entitic mass] 32.4 pg 27.0-32.0 [facility] MCHC (RBC) [Mass/Vol] 32.8 g/dL 32-36 [facility] Nucleated RBC/100 WBC (Bld) [Ratio] 0 % 0-5 [facility] Platelet mean volume (Bld) [Entitic vol] 9.6 fL 6.2-12.0 [facility] Platelets (Bld) [#/Vol] 323 10*3/uL 150-450 [facility] No Panel InformationOrdered By: Radha Bonilla on 01-14-2024 Estimated GFR (MDRD) Amer 85 mL/min >60 [facility] Comment on above: GFR Calc Estimated GFR (MDRD) Non-Af Amer 71 mL/min >60 [facility] Comment on above: Non- GFR Calc RBC Auto (Bld) [#/Vol]Ordere d By: Radha Bonilla on 01-14-2024 RBC (Bld) [#/Vol] 3.95 10*6/uL 4.2-5.4 [facility] Serum or plasma calcium agustin urement (mass/volume)Ordered By: Radha Bonilla on 01-14-2024 Calcium [Mass/Vol] 10.0 mg/dL 8.5-10.1 [facility] Serum or plasma creatinine m easurement (mass/volume)Ordered By: Radha Bonilla on 01-14-2024 Creatinine [Mass/Vol] 0.84 mg/dL 0.55-1.02 [facility] Comment on above: The validity of the calculated GFR & GFRAA in patients over 70 years has not been determined. Clinical correlation is essential. Serum or plasma urea nitroge n measurement (mass/volume)Ordered By: Radha Bonilla on 01-14-2024 Urea nitrogen [Mass/Vol] 12 mg/dL 7-18 [facility] Thin prep Papanicolaou smear with manual screeningOrdered By: Radha Bonilla on 01-14-2024 Thin prep Papanicolaou smear with manual screening 3.9 g/dL 3.2-5.0 [facility] Thin prep Papanicolaou smear with manual screening 29 U/L 15-37 [facility] Thin prep Papanicolaou smear with manual screening 4 5-15 [facility] Absolute lymphocyte countOrd ered By: Radha Bonilla on 10-25-2023 Lymphocytes Auto (Unsp spec) [#/Vol] 1.24 10*3/uL 0.83-4.51 [facility] Automated lymphocyte count a s percentage of total leukocytesOrdered By: Radha Bonilla on 10-25-2023 Lymphocytes/100 WBC Auto (Unsp spec) 20.1 % 19-41 [facility] Basophil percentageOrdered B y: Radha Bonilla on 10-25-2023 Basophils/100 WBC (Bld) 1.3 % 0-1 [facility] Bilirubin [Mass/Vol] 0.30 mg/dL 0.20-1.00 [facility] Comment on above: For patients on eltr ombopag therapy, use of Dimension [place] TBIL is not recommended. Chloride [Moles/Vol] 103 mmol/L 98-107 [facility] Eosinophils/100 WBC (Bld) 1.8 % 0-5 [facility] Glucose [Mass/Vol] 113 mg/dL 74-106 [facility] Comment on above: Fasting Glucose resu lt from 100 to 125 mg/dL suggests IMPAIRED HOMEOSTASIS per A.D.A. criteria. Hemoglobin (Bld) [Mass/Vol] 12.6 g/dL 12.0-15.0 [facility] Monocytes/100 WBC (Bld) 10.2 % 0-10 [facility] Neutrophils (Bld) [#/Vol] 4.1 10*3/uL 2.0-7.7 [facility] Neutrophils/100 WBC (Bld) 66.4 % 47-70 [facility] Potassium [Moles/Vol] 3.8 mmol/L 3.5-5.1 [facility] Protein [Mass/Vol] 8.2 g/dL 6.4-8.2 [facility] Sodium [Moles/Vol] 137 mmol/L 136-145 [facility] WBC (Bld) [#/Vol] 6.2 10*3/uL 4.4-11.0 [facility] Determination of erythrocyte mean corpuscular volume (MCV)Ordered By: Radha Bonilla on 10-25-2023 MCV (RBC) [Entitic vol] 98.0 fL 81-99 [facility] Erythrocyte distribution wid th ratioOrdered By: Radha Bonilla on 10-25-2023 Erythrocyte distribution width (RBC) [Ratio] 15.2 % 11.6-14.6 [facility] Erythrocyte distribution wid th standard deviationOrdered By: Radhadominique Bonilla on 10-25-2023 Erythrocyte distribution width (RBC) [Entitic vol] 53.0 fL 35.1-43.9 [facility] Hematocrit Auto (Bld) [Volum e fraction]Ordered By: [facility] Chad on 10-25-2023 Hematocrit (Bld) [Volume fraction] 39.2 % 37-47 [facility] Immature granulocytes/100 WB C Auto (Bld)Ordered By: [facility] Chad on 10-25-2023 Immature granulocytes/100 WBC (Bld) 0.200 % 0.0-0.9 [facility] Comment on above: IG% - Immature Granu locytes (promyelocytes, myelocytes and metamyelocytes) > 1% indicates that a LEFT SHIFT is Present. Laboratory - Chemistry and C hemistry - challengeOrdered By: Radha Chad on 10-25-2023 Albumin/Globulin [Mass ratio] 1.0 {ratio} 0.9-2.4 [facility] ALP [Catalytic activity/Vol] 77 U/L 45-117 [facility] ALT [Catalytic activity/Vol] 37 U/L 13-56 [facility] CO2 [Moles/Vol] 33.0 mmol/L 21.0-32.0 [facility] Globulin (S) [Mass/Vol] 4.0 g/dL 2.2-4.2 [facility] Urea nitrogen/Creatinine [Mass ratio] 20.4 mg/mg 10-20 [facility] - Hematology and Cell countsOrdered By: Radha Bonilla on 10-25-2023 MCH (RBC) [Entitic mass] 31.5 pg 27.0-32.0 [facility] MCHC (RBC) [Mass/Vol] 32.1 g/dL 32-36 [facility] Nucleated RBC/100 WBC (Bld) [Ratio] 0 % 0-5 [facility] Platelet mean volume (Bld) [Entitic vol] 10.2 fL 6.2-12.0 [facility] Platelets (Bld) [#/Vol] 340 10*3/uL 150-450 [facility] No Panel InformationOrdered By: Radha Bonilla on 10-25-2023 Estimated GFR (MDRD) Amer 81 mL/min >60 [facility] Comment on above: GFR Calc Estimated GFR (MDRD) Non-Af Amer 67 mL/min >60 [facility] Comment on above: Non- GFR Calc RBC Auto (Bld) [#/Vol]Ordere d By: Radha Bonilla on 10-25-2023 RBC (Bld) [#/Vol] 4.00 10*6/uL 4.2-5.4 [facility] Serum or plasma calcium agustin urement (mass/volume)Ordered By: Radha Bonilla on 10-25-2023 Calcium [Mass/Vol] 9.6 mg/dL 8.5-10.1 [facility] Serum or plasma creatinine m easurement (mass/volume)Ordered By: Radha Bonilla on 10-25-2023 Creatinine [Mass/Vol] 0.88 mg/dL 0.55-1.02 [facility] Comment on above: The validity of the calculated GFR & GFRAA in patients over 70 years has not been determined. Clinical correlation is essential. Serum or plasma urea nitroge n measurement (mass/volume)Ordered By: Radha Bonilla on 10-25-2023 Urea nitrogen [Mass/Vol] 18 mg/dL 7-18 [facility] Thin prep Papanicolaou smear with manual screeningOrdered By: Radha Bonilla on 10-25-2023 Thin prep Papanicolaou smear with manual screening 4.2 g/dL 3.2-5.0 [facility] Thin prep Papanicolaou smear with manual screening 26 U/L [facility] Thin prep Papanicolaou smear with manual screening 1 - [facility] Laboratory - Chemistry and C hemistry - challengeOrdered By: Galilea Price on 08-01-2023 Free T4 [Mass/Vol] 1.27 ng/dL 0.76-1.46 [facility] No Panel InformationOrdered By: Galilea Albert on 08-01-2023 Thyroid Stimulating Hormone (TSH) 1.49 uIU/mL 0.358-3.74 [facility] Absolute lymphocyte countOrd ered By: Radha Bonilla on 07-26-2023 Lymphocytes Auto (Unsp spec) [#/Vol] 1.32 10*3/uL 0.83-4.51 [facility] Basophil percentageOrdered B y: Radha Bonilla on 07-26-2023 Basophils/100 WBC (Bld) 1.3 % 0-1 [facility] Bilirubin [Mass/Vol] 0.60 mg/dL 0.20-1.00 [facility] Comment on above: For patients on eltr ombopag therapy, use of Dimension [place] TBIL is not recommended. Chloride [Moles/Vol] 103 mmol/L 98-107 [facility] Eosinophils/100 WBC (Bld) 1.9 % 0-5 [facility] Glucose [Mass/Vol] 102 mg/dL 74-106 [facility] Comment on above: Fasting Glucose resu lt from 100 to 125 mg/dL suggests IMPAIRED HOMEOSTASIS per A.D.A. criteria. Neutrophils (Bld) [#/Vol] 4.7 10*3/uL 2.0-7.7 [facility] Neutrophils/100 WBC (Bld) 67.5 % 47-70 [facility] Potassium [Moles/Vol] 3.9 mmol/L 3.5-5.1 [facility] Protein [Mass/Vol] 8.0 g/dL 6.4-8.2 [facility] Sodium [Moles/Vol] 139 mmol/L 136-145 [facility] WBC (Bld) [#/Vol] 7.0 10*3/uL 4.4-11.0 [facility] Blood erythrocytes count (nu mber/volume)Ordered By: Radha Bonilla on 07-26-2023 RBC (Bld) [#/Vol] 4.05 10*6/uL 4.2-5.4 [facility] Blood hemoglobin measurement (mass/volume)Ordered By: Radha Bonilla on 07-26-2023 Hemoglobin (Bld) [Mass/Vol] 13.0 g/dL 12.0-15.0 [facility] Blood lymphocytes/100 leukoc ytesOrdered By: Radha Bonilla on 07-26-2023 Lymphocytes/100 WBC (Bld) 18.9 % 19-41 [facility] Blood monocytes/100 leukocyt esOrdered By: Radha Bonilla on 07-26-2023 Monocytes/100 WBC (Bld) 10.1 % 0-10 [facility] Blood platelet mean volumeOr dered By: Radha Bonilla on 07-26-2023 Platelet mean volume (Bld) [Entitic vol] 10.0 fL 6.2-12.0 [facility] Determination of erythrocyte mean corpuscular volume (MCV)Ordered By: Radha Bonilla on 07-26-2023 MCV (RBC) [Entitic vol] 100.0 fL 81-99 [facility] Hematocrit Auto (Bld) [Volum e fraction]Ordered By: Radha Bonilla on 07-26-2023 Hematocrit (Bld) [Volume fraction] 40.5 % 37-47 [facility] Laboratory - Chemistry and C hemistry - challengeOrdered By: [facility] on 07-26-2023 ALP [Catalytic activity/Vol] 68 U/L 45-117 [facility] ALT [Catalytic activity/Vol] 23 U/L 13-56 [facility] CO2 [Moles/Vol] 27.0 mmol/L 21.0-32.0 [facility] Globulin (S) [Mass/Vol] 3.7 g/dL 2.2-4.2 [facility] Urea nitrogen/Creatinine [Mass ratio] 22.6 mg/mg 10-20 [facility] Laboratory - Hematology and Cell countsOrdered By: Radhadominique Bonilla on 07-26-2023 Erythrocyte distribution width (RBC) [Entitic vol] 51.8 fL 35.1-43.9 [facility] Erythrocyte distribution width (RBC) [Ratio] 14.3 % 11.6-14.6 [facility] Immature granulocytes/100 WBC (Bld) 0.300 % 0.0-0.9 [facility] Comment on above: IG% - Immature Granu locytes (promyelocytes, myelocytes and metamyelocytes) > 1% indicates that a LEFT SHIFT is Present. MCH (RBC) [Entitic mass] 32.1 pg 27.0-32.0 [facility] Nucleated RBC/100 WBC (Bld) [Ratio] 0 % 0-5 [facility] MCHC Auto (RBC) [Mass/Vol]Or dered By: Radha Bonilla on 07-26-2023 MCHC (RBC) [Mass/Vol] 32.1 g/dL 32-36 [facility] No Panel InformationOrdered By: Radha Bonilla on 07-26-2023 Estimated GFR (MDRD) Amer 105 mL/min >60 [facility] Comment on above: GFR Calc Estimated GFR (MDRD) Non-Af Amer 86 mL/min >60 [facility] Comment on above: Non- GFR Calc Platelets bldOrdered By: Juanito Bonilla on 07-26-2023 Platelets (Bld) [#/Vol] 309 10*3/uL 150-450 [facility] Serum or plasma albumin agustin urement (mass/volume)Ordered By: Radha Bonilla on 07-26-2023 Albumin [Mass/Vol] 4.3 g/dL 3.2-5.0 [facility] Serum or plasma albumin/glob ulin mass ratioOrdered By: Radha Bonilla on 07-26-2023 Albumin/Globulin [Mass ratio] 1.2 {ratio} 0.9-2.4 [facility] Serum or plasma calcium agustin urement (mass/volume)Ordered By: Radha Bonilla on 07-26-2023 Calcium [Mass/Vol] 9.0 mg/dL 8.5-10.1 [facility] Serum or plasma creatinine m easurement (mass/volume)Ordered By: Radha Bonilla on 07-26-2023 Creatinine [Mass/Vol] 0.71 mg/dL 0.55-1.02 [facility] Comment on above: The validity of the calculated GFR & GFRAA in patients over 70 years has not been determined. Clinical correlation is essential. Serum or plasma urea nitroge n measurement (mass/volume)Ordered By: Radha Bonilla on 07-26-2023 Urea nitrogen [Mass/Vol] 16 mg/dL 7-18 [facility] Thin prep Papanicolaou smear with manual screeningOrdered By: Radha Bonilla on 07-26-2023 Thin prep Papanicolaou smear with manual screening 24 U/L 15-37 [facility] Thin prep Papanicolaou smear with manual screening 9 5-15 [facility] Absolute lymphocyte countOrd ered By: Radha Bonilla on 04-27-2023 Lymphocytes Auto (Unsp spec) [#/Vol] 0.96 10*3/uL 0.83-4.51 [facility] Basophil percentageOrdered B y: Radha Bonilla on 04-27-2023 Basophils/100 WBC (Bld) 0.9 % 0-1 [facility] Bilirubin [Mass/Vol] 0.40 mg/dL 0.20-1.00 [facility] Comment on above: For patients on eltr ombopag therapy, use of Dimension [place] TBIL is not recommended. Chloride [Moles/Vol] 102 mmol/L 98-107 [facility] Eosinophils/100 WBC (Bld) 0.3 % 0-5 [facility] Glucose [Mass/Vol] 127 mg/dL 74-106 [facility] Comment on above: Fasting Glucose resu lt greater than or equal to 126 mg/dL suggests DIABETES MELLITUS per A.D.A. criteria. Neutrophils (Bld) [#/Vol] 5.3 10*3/uL 2.0-7.7 [facility] Neutrophils/100 WBC (Bld) 78.8 % 47-70 [facility] Potassium [Moles/Vol] 3.5 mmol/L 3.5-5.1 [facility] Protein [Mass/Vol] 7.8 g/dL 6.4-8.2 [facility] Sodium [Moles/Vol] 139 mmol/L 136-145 [facility] WBC (Bld) [#/Vol] 6.8 10*3/uL 4.4-11.0 [facility] Blood erythrocytes count (nu mber/volume)Ordered By: Radha Bonilla on 04-27-2023 RBC (Bld) [#/Vol] 4.12 10*6/uL 4.2-5.4 [facility] Blood hemoglobin measurement (mass/volume)Ordered By: Radha Bonilla on 04-27-2023 Hemoglobin (Bld) [Mass/Vol] 12.9 g/dL 12.0-15.0 [facility] Blood lymphocytes/100 leukoc ytesOrdered By: Radha Bonilla on 04-27-2023 Lymphocytes/100 WBC (Bld) 14.2 % 19-41 [facility] Blood monocytes/100 leukocyt esOrdered By: Radha Bonilla on 04-27-2023 Monocytes/100 WBC (Bld) 5.5 % 0-10 [facility] Blood platelet mean volumeOr dered By: Radha Bonilla on 04-27-2023 Platelet mean volume (Bld) [Entitic vol] 9.6 fL 6.2-12.0 [facility] Determination of erythrocyte mean corpuscular volume (MCV)Ordered By: Radha Bonilla on 04-27-2023 MCV (RBC) [Entitic vol] 96.6 fL 81-99 [facility] Hematocrit Auto (Bld) [Volum e fraction]Ordered By: Radha Bonilla on 04-27-2023 Hematocrit (Bld) [Volume fraction] 39.8 % 37-47 [facility] Laboratory - Chemistry and C hemistry - challengeOrdered By: Radha Bonilla on 04-27-2023 ALP [Catalytic activity/Vol] 66 U/L 45-117 [facility] ALT [Catalytic activity/Vol] 42 U/L 13-56 [facility] CO2 [Moles/Vol] 31.0 mmol/L 21.0-32.0 [facility] Globulin (S) [Mass/Vol] 3.7 g/dL 2.2-4.2 [facility] Urea nitrogen/Creatinine [Mass ratio] 13.8 mg/mg 10-20 [facility] Laboratory - Hematology and Cell countsOrdered By: Radha Bonilla on 04-27-2023 Erythrocyte distribution width (RBC) [Entitic vol] 51.1 fL 35.1-43.9 [facility] Erythrocyte distribution width (RBC) [Ratio] 14.8 % 11.6-14.6 [facility] Immature granulocytes/100 WBC (Bld) 0.300 % 0.0-0.9 [facility] Comment on above: IG% - Immature Granu locytes (promyelocytes, myelocytes and metamyelocytes) > 1% indicates that a LEFT SHIFT is Present. MCH (RBC) [Entitic mass] 31.3 pg 27.0-32.0 [facility] Nucleated RBC/100 WBC (Bld) [Ratio] 0 % 0-5 [facility] MCHC Auto (RBC) [Mass/Vol]Or dered By: Radha Bonilla on 04-27-2023 MCHC (RBC) [Mass/Vol] 32.4 g/dL 32-36 [facility] No Panel InformationOrdered By: Radha Bonilla on 04-27-2023 Estimated GFR (MDRD) Amer 91 mL/min >60 [facility] Comment on above: GFR Calc Estimated GFR (MDRD) Non-Af Amer 76 mL/min >60 [facility] Comment on above: Non- GFR Calc Platelets bldOrdered By: Juanito Bonilla on 04-27-2023 Platelets (Bld) [#/Vol] 312 10*3/uL 150-450 [facility] Serum or plasma albumin agustin urement (mass/volume)Ordered By: Radha Bonilla on 04-27-2023 Albumin [Mass/Vol] 4.1 g/dL 3.2-5.0 [facility] Serum or plasma albumin/glob ulin mass ratioOrdered By: Radha Bonilla on 04-27-2023 Albumin/Globulin [Mass ratio] 1.1 {ratio} 0.9-2.4 [facility] Serum or plasma calcium agustin urement (mass/volume)Ordered By: Radha Bonilla on 04-27-2023 Calcium [Mass/Vol] 9.1 mg/dL 8.5-10.1 [facility] Serum or plasma creatinine m easurement (mass/volume)Ordered By: Radha Bonilla on 04-27-2023 Creatinine [Mass/Vol] 0.80 mg/dL 0.55-1.02 [facility] Comment on above: The validity of the calculated GFR & GFRAA in patients over 70 years has not been determined. Clinical correlation is essential. Serum or plasma urea nitroge n measurement (mass/volume)Ordered By: Radha Bonilla on 04-27-2023 Urea nitrogen [Mass/Vol] 11 mg/dL 7-18 [facility] Thin prep Papanicolaou smear with manual screeningOrdered By: Radha Bonilla on 04-27-2023 Thin prep Papanicolaou smear with manual screening 22 U/L 15-37 [facility] Thin prep Papanicolaou smear with manual screening 6 5-15 [facility] Basophil percentageOrdered B y: Galilea Price on 01-23-2023 Cholesterol [Mass/Vol] 143 mg/dL <200 [facility] Comment on above: <200 mg/dL Desirable 200-240 mg/dL Borderline >240 mg/dL High Risk Triglyceride [Mass/Vol] 97 mg/dL <199 [facility] Comment on above: The drugs N-Acetylcy steine and Metamizole may falsely depress this assay.Serum Triglycerides Reference Interval Normal <150 mg/dL Borderline high 150 - 199 mg/dL High 200 - 499 mg/dL Very High > or = 500 mg/dL Laboratory - Chemistry and C hemistry - challengeOrdered By: Galilea Price on 01-23-2023 Free T4 [Mass/Vol] 1.55 ng/dL 0.76-1.46 [facility] No Panel InformationOrdered By: Galilea Price on 01-23-2023 Thyroid Stimulating Hormone (TSH) 1.02 uIU/mL 0.358-3.74 [facility] Vitamin D 25-Hydroxy 89.4 ng/mL [facility] Comment on above: Vitamin D 25(OH) Sta tus Range Deficiency <20 ng/mL (50nmol/L) Insufficiency 20 - 30 ng/mL (50 - 75 nmol/L) Sufficiency 30 - 100 ng/mL (75 - 250 nmol/L) Toxicity >100 ng/mL (>250 nmol/L) Serum or plasma cholesterol in HDL measurement (mass/volume)Ordered By: Galilea Price on 01-23-2023 Cholesterol in HDL [Mass/Vol] 50 mg/dL >40 [facility] Comment on above: The drugs N-Acetylcy steine and Metamizole may falsely depress this assay. Reference Range HDL <40 mg/dL Low HDL Cholesterol HDL >or= 60 mg/dL High HDL Cholesterol Serum or plasma cholesterol in VLDL measurement (mass/volume)Ordered By: Galilea Price on 01-23-2023 Cholesterol in VLDL [Mass/Vol] 19 mg/dL 5-40 [facility] Serum or plasma low density lipoprotein (LDL) cholesterol measurement (mass/volume)Ordered By: Galilea Price on 01-23-2023 Cholesterol in LDL [Mass/Vol] 74 mg/dL 0-130 [facility] Absolute lymphocyte countOrd ered By: Dr. Bonilla on 01-08-2023 Lymphocytes Auto (Unsp spec) [#/Vol] 0.90 10*3/uL 0.83-4.51 [facility] Basophil percentageOrdered B y: Dr. Bonilla on 01-08-2023 Basophils/100 WBC (Bld) 0.8 % 0-1 [facility] Bilirubin [Mass/Vol] 0.40 mg/dL 0.20-1.00 [facility] Comment on above: For patients on eltr ombopag therapy, use of Dimension [place] TBIL is not recommended. Chloride [Moles/Vol] 100 mmol/L 98-107 [facility] Eosinophils/100 WBC (Bld) 0.8 % 0-5 [facility] Glucose [Mass/Vol] 74 mg/dL 74-106 [facility] Neutrophils (Bld) [#/Vol] 4.3 10*3/uL 2.0-7.7 [facility] Neutrophils/100 WBC (Bld) 72.9 % 47-70 [facility] Potassium [Moles/Vol] 3.7 mmol/L 3.5-5.1 [facility] Protein [Mass/Vol] 8.0 g/dL 6.4-8.2 [facility] Sodium [Moles/Vol] 136 mmol/L 136-145 [facility] WBC (Bld) [#/Vol] 6.0 10*3/uL 4.4-11.0 [facility] Blood erythrocytes count (nu mber/volume)Ordered By: Dr. Bonilla on 01-08-2023 RBC (Bld) [#/Vol] 3.88 10*6/uL 4.2-5.4 [facility] Blood hemoglobin measurement (mass/volume)Ordered By: Dr. Bonilla on 01-08-2023 Hemoglobin (Bld) [Mass/Vol] 12.9 g/dL 12.0-15.0 [facility] Blood lymphocytes/100 leukoc ytesOrdered By: Dr. Bonilla on 01-08-2023 Lymphocytes/100 WBC (Bld) 15.1 % 19-41 [facility] Blood monocytes/100 leukocyt esOrdered By: Dr. Bonilla on 01-08-2023 Monocytes/100 WBC (Bld) 10.1 % 0-10 [facility] Blood platelet mean volumeOr dered By: Dr. Bonilla on 01-08-2023 Platelet mean volume (Bld) [Entitic vol] 9.2 fL 6.2-12.0 [facility] Determination of erythrocyte mean corpuscular volume (MCV)Ordered By: Dr. Bonilla on 01-08-2023 MCV (RBC) [Entitic vol] 97.2 fL 81-99 [facility] Hematocrit Auto (Bld) [Volum e fraction]Ordered By: Dr. Bonilla on 01-08-2023 Hematocrit (Bld) [Volume fraction] 37.7 % 37-47 [facility] Laboratory - Chemistry and C hemistry - challengeOrdered By: Dr. Bonilla on 01-08-2023 ALP [Catalytic activity/Vol] 78 U/L 45-117 [facility] ALT [Catalytic activity/Vol] 23 U/L 13-56 [facility] CO2 [Moles/Vol] 29.0 mmol/L 21.0-32.0 [facility] Globulin (S) [Mass/Vol] 4.2 g/dL 2.2-4.2 [facility] Urea nitrogen/Creatinine [Mass ratio] 9.3 mg/mg 10-20 [facility] Laboratory - Hematology and Cell countsOrdered By: Dr. Bonilla on 01-08-2023 Erythrocyte distribution width (RBC) [Entitic vol] 49.8 fL 35.1-43.9 [facility] Erythrocyte distribution width (RBC) [Ratio] 14.2 % 11.6-14.6 [facility] Immature granulocytes/100 WBC (Bld) 0.300 % 0.0-0.9 [facility] Comment on above: IG% - Immature Granu locytes (promyelocytes, myelocytes and metamyelocytes) > 1% indicates that a LEFT SHIFT is Present. MCH (RBC) [Entitic mass] 33.2 pg 27.0-32.0 [facility] Nucleated RBC/100 WBC (Bld) [Ratio] 0 % 0-5 [facility] MCHC Auto (RBC) [Mass/Vol]Or dered By: Dr. Bonilla on 01-08-2023 MCHC (RBC) [Mass/Vol] 34.2 g/dL 32-36 [facility] No Panel InformationOrdered By: Dr. Bonilla on 01-08-2023 Estimated GFR (MDRD) Amer 98 mL/min >60 [facility] Comment on above: GFR Calc Estimated GFR (MDRD) Non-Af Amer 81 mL/min >60 [facility] Comment on above: Non- GFR Calc Platelets bldOrdered By: Dr. Bonilla on 01-08-2023 Platelets (Bld) [#/Vol] 304 10*3/uL 150-450 [facility] Serum or plasma albumin agustin urement (mass/volume)Ordered By: Dr. Bonilla on 01-08-2023 Albumin [Mass/Vol] 3.8 g/dL 3.2-5.0 [facility] Serum or plasma albumin/glob ulin mass ratioOrdered By: Dr. Bonilla on 01-08-2023 Albumin/Globulin [Mass ratio] 0.9 {ratio} 0.9-2.4 [facility] Serum or plasma calcium agustin urement (mass/volume)Ordered By: Dr. Bonilla on 01-08-2023 Calcium [Mass/Vol] 9.8 mg/dL 8.5-10.1 [facility] Serum or plasma creatinine m easurement (mass/volume)Ordered By: Dr. Bonilla on 01-08-2023 Creatinine [Mass/Vol] 0.75 mg/dL 0.55-1.02 [facility] Comment on above: The validity of the calculated GFR & GFRAA in patients over 70 years has not been determined. Clinical correlation is essential. Serum or plasma urea nitroge n measurement (mass/volume)Ordered By: Dr. Bonilla on 01-08-2023 Urea nitrogen [Mass/Vol] 7 mg/dL 7-18 [facility] Thin prep Papanicolaou smear with manual screeningOrdered By: Dr. Bonilla on 01-08-2023 Thin prep Papanicolaou smear with manual screening 19 U/L 15-37 [facility] Thin prep Papanicolaou smear with manual screening 7 5-15 [facility] Absolute lymphocyte countOrd ered By: Dr. Bonilla on 10-23-2022 Lymphocytes Auto (Unsp spec) [#/Vol] 1.44 10*3/uL 0.83-4.51 [facility] Basophil percentageOrdered B y: Dr. Bonilla on 10-23-2022 Basophils/100 WBC (Bld) 1.1 % 0-1 [facility] Bilirubin [Mass/Vol] 0.40 mg/dL 0.20-1.00 [facility] Comment on above: For patients on eltr ombopag therapy, use of Dimension [place] TBIL is not recommended. Chloride [Moles/Vol] 99 mmol/L 98-107 [facility] Eosinophils/100 WBC (Bld) 1.7 % 0-5 [facility] Glucose [Mass/Vol] 83 mg/dL 74-106 [facility] Neutrophils (Bld) [#/Vol] 4.4 10*3/uL 2.0-7.7 [facility] Neutrophils/100 WBC (Bld) 67.0 % 47-70 [facility] Potassium [Moles/Vol] 3.6 mmol/L 3.5-5.1 [facility] Protein [Mass/Vol] 7.9 g/dL 6.4-8.2 [facility] Sodium [Moles/Vol] 136 mmol/L 136-145 [facility] WBC (Bld) [#/Vol] 6.6 10*3/uL 4.4-11.0 [facility] Blood erythrocytes count (nu mber/volume)Ordered By: Dr. Bonilla on 10-23-2022 RBC (Bld) [#/Vol] 3.74 10*6/uL 4.2-5.4 [facility] Blood hemoglobin measurement (mass/volume)Ordered By: Dr. Bonilla on 10-23-2022 Hemoglobin (Bld) [Mass/Vol] 12.2 g/dL 12.0-15.0 [facility] Blood lymphocytes/100 leukoc ytesOrdered By: Dr. Bonilla on 10-23-2022 Lymphocytes/100 WBC (Bld) 21.8 % 19-41 [facility] Blood monocytes/100 leukocyt esOrdered By: Dr. Bonilla on 10-23-2022 Monocytes/100 WBC (Bld) 7.9 % 0-10 [facility] Blood platelet mean volumeOr dered By: Dr. Bonilla on 10-23-2022 Platelet mean volume (Bld) [Entitic vol] 9.2 fL 6.2-12.0 [facility] Determination of erythrocyte mean corpuscular volume (MCV)Ordered By: Dr. Bonilla on 10-23-2022 MCV (RBC) [Entitic vol] 98.7 fL 81-99 [facility] Hematocrit Auto (Bld) [Volum e fraction]Ordered By: Dr. Bonilla on 10-23-2022 Hematocrit (Bld) [Volume fraction] 36.9 % 37-47 [facility] Laboratory - Chemistry and C hemistry - challengeOrdered By: Dr. Bonilla on 10-23-2022 ALP [Catalytic activity/Vol] 64 U/L 45-117 [facility] ALT [Catalytic activity/Vol] 34 U/L 13-56 [facility] CO2 [Moles/Vol] 33.0 mmol/L 21.0-32.0 [facility] Globulin (S) [Mass/Vol] 4.0 g/dL 2.2-4.2 [facility] Urea nitrogen/Creatinine [Mass ratio] 11.6 mg/mg 10-20 [facility] Laboratory - Hematology and Cell countsOrdered By: Dr. Bonilla on 10-23-2022 Erythrocyte distribution width (RBC) [Entitic vol] 51.3 fL 35.1-43.9 [facility] Erythrocyte distribution width (RBC) [Ratio] 14.3 % 11.6-14.6 [facility] Immature granulocytes/100 WBC (Bld) 0.500 % 0.0-0.9 [facility] Comment on above: IG% - Immature Granu locytes (promyelocytes, myelocytes and metamyelocytes) > 1% indicates that a LEFT SHIFT is Present. MCH (RBC) [Entitic mass] 32.6 pg 27.0-32.0 [facility] Nucleated RBC/100 WBC (Bld) [Ratio] 0 % 0-5 [facility] MCHC Auto (RBC) [Mass/Vol]Or dered By: Dr. Bonilla on 10-23-2022 MCHC (RBC) [Mass/Vol] 33.1 g/dL 32-36 [facility] No Panel InformationOrdered By: Dr. Bonilla on 10-23-2022 Estimated GFR (MDRD) Amer 95 mL/min >60 [facility] Comment on above: GFR Calc Estimated GFR (MDRD) Non-Af Amer 78 mL/min >60 [facility] Comment on above: Non- GFR Calc Platelets bldOrdered By: Dr. Bonilla on 10-23-2022 Platelets (Bld) [#/Vol] 264 10*3/uL 150-450 [facility] Serum or plasma albumin agustin urement (mass/volume)Ordered By: Dr. Bonilla on 10-23-2022 Albumin [Mass/Vol] 3.9 g/dL 3.2-5.0 [facility] Serum or plasma albumin/glob ulin mass ratioOrdered By: Dr. Bonilla on 10-23-2022 Albumin/Globulin [Mass ratio] 1.0 {ratio} 0.9-2.4 [facility] Serum or plasma calcium agustin urement (mass/volume)Ordered By: Dr. Bonilla on 10-23-2022 Calcium [Mass/Vol] 9.3 mg/dL 8.5-10.1 [facility] Serum or plasma creatinine m easurement (mass/volume)Ordered By: Dr. Bonilla on 10-23-2022 Creatinine [Mass/Vol] 0.77 mg/dL 0.55-1.02 [facility] Comment on above: The validity of the calculated GFR & GFRAA in patients over 70 years has not been determined. Clinical correlation is essential. Serum or plasma urea nitroge n measurement (mass/volume)Ordered By: Dr. Bonilla on 10-23-2022 Urea nitrogen [Mass/Vol] 9 mg/dL 7-18 [facility] Thin prep Papanicolaou smear with manual screeningOrdered By: Dr. Bonilla on 10-23-2022 Thin prep Papanicolaou smear with manual screening 22 U/L 15-37 [facility] Thin prep Papanicolaou smear with manual screening 4 5-15 [facility] Absolute lymphocyte counton 04-28-2022 Lymphocytes Auto (Unsp spec) [#/Vol] 1.14 10*3/uL 0.83-4.51 [facility] Work Phone: Basophil percentageon 2021 Basophils/100 WBC (Bld) 1.2 % 0-1 [facility] Work Phone: Bilirubin [Mass/Vol] 0.40 mg/dL 0.20-1.00 [facility] Work Phone: Comment on above: For patients on eltr ombopag therapy, use of Dimension [place] TBIL is not recommended. Chloride [Moles/Vol] 98 mmol/L 98-107 [facility] Work Phone: Eosinophils/100 WBC (Bld) 0.6 % 0-5 [facility] Work Phone: Glucose [Mass/Vol] 103 mg/dL 74-106 [facility] Work Phone: Comment on above: Fasting Glucose resu lt from 100 to 125 mg/dL suggests IMPAIRED HOMEOSTASIS per A.D.A. criteria. Neutrophils (Bld) [#/Vol] 1.8 10*3/uL 2.0-7.7 [facility] Work Phone: Neutrophils/100 WBC (Bld) 53.8 % 47-70 [facility] Work Phone: Potassium [Moles/Vol] 3.8 mmol/L 3.5-5.1 [facility] Work Phone: Protein [Mass/Vol] 7.9 g/dL 6.4-8.2 [facility] Work Phone: Sodium [Moles/Vol] 135 mmol/L 136-145 [facility] Work Phone: [phone] WBC (Bld) [#/Vol] 3.4 10*3/uL 4.4-11.0 [facility] Work Phone: [phone] Blood erythrocytes count (nu mber/volume)on 04-28-2022 RBC (Bld) [#/Vol] 3.71 10*6/uL 4.2-5.4 [facility]: [phone] Blood hemoglobin measurement (mass/volume)on 04-28-2022 Hemoglobin (Bld) [Mass/Vol] 12.3 g/dL 12.0-15.0 [facility] Work Phone: [phone] Blood lymphocytes/100 leukoc yteson 04-28-2022 Lymphocytes/100 WBC (Bld) 34.0 % 19-41 [facility] Work Phone: [phone] Blood monocytes/100 leukocyt eson 04-28-2022 Monocytes/100 WBC (Bld) 10.4 % 0-10 [facility] Work Phone: [phone] Blood platelet mean volumeon 04-28-2022 Platelet mean volume (Bld) [Entitic vol] 9.7 fL 6.2-12.0 [facility] Work Phone: [phone] Determination of erythrocyte mean corpuscular volume (MCV)on 04-28-2022 MCV (RBC) [Entitic vol] 97.6 fL 81-99 [facility] Work Phone: [phone] Hematocrit Auto (Bld) [Volum e fraction]on 04-28-2022 Hematocrit (Bld) [Volume fraction] 36.2 % 37-47 [facility] Work Phone: [phone] Laboratory - Chemistry and C hemistry - challengeon 04-28-2022 ALP [Catalytic activity/Vol] 59 U/L 45-117 [facility] Work Phone: [phone] ALT [Catalytic activity/Vol] 32 U/L 13-56 [facility] Work Phone: [phone] CO2 [Moles/Vol] 32.0 mmol/L 21.0-32.0 [facility] Work Phone: [phone] Globulin (S) [Mass/Vol] 3.9 g/dL 2.2-4.2 [facility] Work Phone: [phone] Urea nitrogen/Creatinine [Mass ratio] 11.2 mg/mg 10-20 [facility] Work Phone: [phone] Laboratory - Hematology and Cell countson 04-28-2022 Erythrocyte distribution width (RBC) [Entitic vol] 51.5 fL 35.1-43.9 [facility] Work Phone: [phone] Erythrocyte distribution width (RBC) [Ratio] 14.6 % 11.6-14.6 [facility] Work Phone: [phone] Immature granulocytes/100 WBC (Bld) 0.000 % 0.0-0.9 [facility] Work Phone: [phone] Comment on above: IG% - Immature Granu locytes (promyelocytes, myelocytes and metamyelocytes) > 1% indicates that a LEFT SHIFT is Present. MCH (RBC) [Entitic mass] 33.2 pg 27.0-32.0 [facility] Work Phone: [phone] Nucleated RBC/100 WBC (Bld) [Ratio] 0 % 0-5 [facility] Work Phone: [phone] MCHC Auto (RBC) [Mass/Vol]on 04-28-2022 MCHC (RBC) [Mass/Vol] 34.0 g/dL 32-36 [facility]: [phone] Panel Informationon 04-28 Estimated GFR (MDRD) Amer 91 mL/min >60 [facility] Work Phone: [phone] Comment on above: GFR Calc Estimated GFR (MDRD) Non-Af Amer 75 mL/min >60 [facility] Work Phone: [phone] Comment on above: Non- GFR Calc Platelets bldon 04-28-2022 Platelets (Bld) [#/Vol] 262 10*3/uL 150-450 [facility] Work Phone: [phone] Serum or plasma albumin agustin urement (mass/volume)on 04-28-2022 Albumin [Mass/Vol] 4.0 g/dL 3.2-5.0 [facility] Work Phone: [phone] Serum or plasma albumin/glob ulin mass ratioon 04-28-2022 Albumin/Globulin [Mass ratio] 1.0 {ratio} 0.9-2.4 [facility] Work Phone: [phone] Serum or plasma calcium agustin urement (mass/volume)on 04-28-2022 Calcium [Mass/Vol] 9.2 mg/dL 8.5-10.1 [facility] Work Phone: [phone] Serum or plasma creatinine m easurement (mass/volume)on 04-28-2022 Creatinine [Mass/Vol] 0.80 mg/dL 0.55-1.02 [facility] Work Phone: Comment on above: The validity of the calculated GFR & GFRAA in patients over 70 years has not been determined. Clinical correlation is essential. Serum or plasma urea nitroge n measurement (mass/volume)on 04-28-2022 Urea nitrogen [Mass/Vol] 9 mg/dL 7-18 [facility] Work Phone: [phone] Thin prep Papanicolaou smear with manual screeningon 04-28-2022 Thin prep Papanicolaou smear with manual screening 24 U/L 15-37 [facility] Work Phone: [phone] Thin prep Papanicolaou smear with manual screening 5 5-15 [facility] Work Phone: [phone] Absolute lymphocyte counton 02-20-2022 Lymphocytes Auto (Unsp spec) [#/Vol] 1.75 10*3/uL 0.83-4.51 [facility] Work Phone: [phone] Basophil percentageon 2021 Basophils/100 WBC (Bld) 1.2 % 0-1 [facility] Work Phone: [phone] Bilirubin [Mass/Vol] 0.30 mg/dL 0.20-1.00 [facility]: Comment on above: For patients on eltr ombopag therapy, use of Dimension [place] TBIL is not recommended. Chloride [Moles/Vol] 101 mmol/L 98-107 [facility] Work Phone: Eosinophils/100 WBC (Bld) 0.7 % 0-5 [facility] Work Phone: Glucose [Mass/Vol] 78 mg/dL 74-106 [facility] Work Phone: Neutrophils (Bld) [#/Vol] 2.0 10*3/uL 2.0-7.7 [facility] Work Phone: Neutrophils/100 WBC (Bld) 47.3 % 47-70 [facility] Work Phone: Potassium [Moles/Vol] 3.5 mmol/L 3.5-5.1 [facility] Work Phone: Protein [Mass/Vol] 7.8 g/dL 6.4-8.2 [facility] Work Phone: Sodium [Moles/Vol] 137 mmol/L 136-145 [facility] Work Phone: WBC (Bld) [#/Vol] 4.3 10*3/uL 4.4-11.0 [facility] Work Phone: Blood erythrocytes count (nu mber/volume)on 02-20-2022 RBC (Bld) [#/Vol] 3.62 10*6/uL 4.2-5.4 [facility] Work Phone: Blood hemoglobin measurement (mass/volume)on 02-20-2022 Hemoglobin (Bld) [Mass/Vol] 11.9 g/dL 12.0-15.0 [facility] Work Phone: Blood lymphocytes/100 leukoc yteson 02-20-2022 Lymphocytes/100 WBC (Bld) 41.0 % 19-41 [facility] Work Phone: Blood monocytes/100 leukocyt eson 02-20-2022 Monocytes/100 WBC (Bld) 9.6 % 0-10 [facility] Work Phone: Blood platelet mean volumeon 02-20-2022 Platelet mean volume (Bld) [Entitic vol] 9.3 fL 6.2-12.0 [facility] Work Phone: [phone] Determination of erythrocyte mean corpuscular volume (MCV)on 02-20-2022 MCV (RBC) [Entitic vol] 96.7 fL 81-99 [facility] Work Phone: [phone] Hematocrit Auto (Bld) [Volum e fraction]on 02-20-2022 Hematocrit (Bld) [Volume fraction] 35.0 % 37-47 [facility] Work Phone: Laboratory - Chemistry and C hemistry - challengeon 02-20-2022 ALP [Catalytic activity/Vol] 53 U/L 45-117 [facility] Work Phone: [phone] ALT [Catalytic activity/Vol] 33 U/L 13-56 [facility] Work Phone: [phone] CO2 [Moles/Vol] 32.0 mmol/L 21.0-32.0 [facility] Work Phone: Globulin (S) [Mass/Vol] 3.7 g/dL 2.2-4.2 [facility] Work Phone: [phone] Urea nitrogen/Creatinine [Mass ratio] 13.2 mg/mg 10-20 [facility] Work Phone: [phone] Laboratory - Hematology and Cell countson 02-20-2022 Erythrocyte distribution width (RBC) [Entitic vol] 49.9 fL 35.1-43.9 [facility] Work Phone: [phone] Erythrocyte distribution width (RBC) [Ratio] 14.3 % 11.6-14.6 [facility] Work Phone: [phone] Immature granulocytes/100 WBC (Bld) 0.200 % 0.0-0.9 [facility] Work Phone: Comment on above: IG% - Immature Granu locytes (promyelocytes, myelocytes and metamyelocytes) > 1% indicates that a LEFT SHIFT is Present. MCH (RBC) [Entitic mass] 32.9 pg 27.0-32.0 [facility] Work Phone: Nucleated RBC/100 WBC (Bld) [Ratio] 0 % 0-5 [facility] Work Phone: MCHC Auto (RBC) [Mass/Vol]on 02-20-2022 MCHC (RBC) [Mass/Vol] 34.0 g/dL 32-36 [facility] Work Phone: No Panel Informationon 02-20 Estimated GFR (MDRD) Amer 98 mL/min >60 [facility] Work Phone: Comment on above: GFR Calc Estimated GFR (MDRD) Non-Af Amer 81 mL/min >60 [facility] Work Phone: Comment on above: Non- GFR Calc Platelets bldon 02-20-2022 Platelets (Bld) [#/Vol] 238 10*3/uL 150-450 [facility] Work Phone: Serum or plasma albumin agustin urement (mass/volume)on 02-20-2022 Albumin [Mass/Vol] 4.1 g/dL 3.2-5.0 [facility] Work Phone: Serum or plasma albumin/glob ulin mass ratioon 02-20-2022 Albumin/Globulin [Mass ratio] 1.1 {ratio} 0.9-2.4 [facility] Work Phone: [phone] Serum or plasma calcium agustin urement (mass/volume)on 02-20-2022 Calcium [Mass/Vol] 9.3 mg/dL 8.5-10.1 [facility] Work Phone: [phone] Serum or plasma creatinine m easurement (mass/volume)on 02-20-2022 Creatinine [Mass/Vol] 0.76 mg/dL 0.55-1.02 [facility] Work Phone: Comment on above: The validity of the calculated GFR & GFRAA in patients over 70 years has not been determined. Clinical correlation is essential. Serum or plasma urea nitroge n measurement (mass/volume)on 02-20-2022 Urea nitrogen [Mass/Vol] 10 mg/dL 7-18 [facility] Work Phone: Thin prep Papanicolaou smear with manual screeningon 02-20-2022 Thin prep Papanicolaou smear with manual screening 33 U/L 15-37 [facility] Work Phone: [phone] Thin prep Papanicolaou smear with manual screening 4 5-15 [facility] Work Phone: Basophil percentageon 2021 Cholesterol [Mass/Vol] 165 mg/dL <200 [facility] Work Phone: Comment on above: <200 mg/dL Desirable 200-240 mg/dL Borderline >240 mg/dL High Risk Triglyceride [Mass/Vol] 110 mg/dL <199 [facility] Work Phone: Comment on above: The drugs N-Acetylcy steine and Metamizole may falsely depress this assay.Serum Triglycerides Reference Interval Normal <150 mg/dL Borderline high 150 - 199 mg/dL High 200 - 499 mg/dL Very High > or = 500 mg/dL Laboratory - Chemistry and C hemistry - challengeon 01-20-2022 Free T4 [Mass/Vol] 1.40 ng/dL 0.76-1.46 [facility] Work Phone: No Panel Informationon 01-20 Thyroid Stimulating Hormone (TSH) 0.80 uIU/mL 0.358-3.74 [facility] Work Phone: Serum or plasma cholesterol in HDL measurement (mass/volume)on 01-20-2022 Cholesterol in HDL [Mass/Vol] 47 mg/dL >40 [facility] Work Phone: Comment on above: The drugs N-Acetylcy steine and Metamizole may falsely depress this assay. Reference Range HDL <40 mg/dL Low HDL Cholesterol HDL >or= 60 mg/dL High HDL Cholesterol Serum or plasma cholesterol in VLDL measurement (mass/volume)on 01-20-2022 Cholesterol in VLDL [Mass/Vol] 22 mg/dL 5-40 [facility] Work Phone: Serum or plasma low density lipoprotein (LDL) cholesterol measurement (mass/volume)on 01-20-2022 Cholesterol in LDL [Mass/Vol] 96 mg/dL 0-130 [facility] Work Phone: No Panel Informationon 12-26 [facility] Absolute lymphocyte counton 12-20-2021 Lymphocytes Auto (Unsp spec) [#/Vol] 1.27 10*3/uL 0.83-4.51 [facility] Work Phone: Basophil percentageon 2021 Basophils/100 WBC (Bld) 1.2 % 0-1 [facility] Work Phone: Bilirubin [Mass/Vol] 0.50 mg/dL 0.20-1.00 [facility] Work Phone: Comment on above: For patients on eltr ombopag therapy, use of Dimension [place] TBIL is not recommended. Chloride [Moles/Vol] 100 mmol/L 98-107 [facility] Work Phone: Eosinophils/100 WBC (Bld) 1.6 % 0-5 [facility] Work Phone: Glucose [Mass/Vol] 103 mg/dL 74-106 [facility] Work Phone: Comment on above: Fasting Glucose resu lt from 100 to 125 mg/dL suggests IMPAIRED HOMEOSTASIS per A.D.A. criteria. Neutrophils (Bld) [#/Vol] 2.3 10*3/uL 2.0-7.7 [facility] Work Phone: Neutrophils/100 WBC (Bld) 53.4 % 47-70 [facility] Work Phone: Potassium [Moles/Vol] 3.8 mmol/L 3.5-5.1 [facility] Work Phone: Protein [Mass/Vol] 8.0 g/dL 6.4-8.2 [facility] Work Phone: Sodium [Moles/Vol] 136 mmol/L 136-145 [facility] Work Phone: [phone] WBC (Bld) [#/Vol] 4.3 10*3/uL 4.4-11.0 [facility] Work Phone: [phone] Blood erythrocytes count (nu mber/volume)on 12-20-2021 RBC (Bld) [#/Vol] 3.63 10*6/uL 4.2-5.4 [facility] Work [facility]: [phone] Blood hemoglobin measurement (mass/volume)on 12-20-2021 Hemoglobin (Bld) [Mass/Vol] 12.1 g/dL 12.0-15.0 [facility] Work Phone: [phone] Blood lymphocytes/100 leukoc yteson 12-20-2021 Lymphocytes/100 WBC (Bld) 29.3 % 19-41 [facility] Work Phone: [phone] Blood monocytes/100 leukocyt eson 12-20-2021 Monocytes/100 WBC (Bld) 14.5 % 0-10 [facility] Work Phone: [phone] Blood platelet mean volumeon 12-20-2021 Platelet mean volume (Bld) [Entitic vol] 9.4 fL 6.2-12.0 [facility] Work Phone: [phone] Determination of erythrocyte mean corpuscular volume (MCV)on 12-20-2021 MCV (RBC) [Entitic vol] 96.4 fL 81-99 [facility] Work Phone: [phone] Hematocrit Auto (Bld) [Volum e fraction]on 12-20-2021 Hematocrit (Bld) [Volume fraction] 35.0 % 37-47 [facility] Work Phone: [phone] Laboratory - Chemistry and C hemistry - challengeon 12-20-2021 ALP [Catalytic activity/Vol] 70 U/L 45-117 [facility] Work Phone: [phone] ALT [Catalytic activity/Vol] 27 U/L 13-56 [facility] Work Phone: [phone] CO2 [Moles/Vol] 31.0 mmol/L 21.0-32.0 [facility] Work Phone: [phone] Globulin (S) [Mass/Vol] 3.9 g/dL 2.2-4.2 [facility] Work Phone: [phone] Urea nitrogen/Creatinine [Mass ratio] 12.9 mg/mg 10-20 [facility] Work Phone: [phone] Laboratory - Hematology and Cell countson 12-20-2021 Erythrocyte distribution width (RBC) [Entitic vol] 49.6 fL 35.1-43.9 [facility] Work Phone: [phone] Erythrocyte distribution width (RBC) [Ratio] 14.2 % 11.6-14.6 [facility] Work Phone: [phone] Immature granulocytes/100 WBC (Bld) 0.000 % 0.0-0.9 [facility] Work Phone: [phone] Comment on above: IG% - Immature Granu locytes (promyelocytes, myelocytes and metamyelocytes) > 1% indicates that a LEFT SHIFT is Present. MCH (RBC) [Entitic mass] 33.3 pg 27.0-32.0 [facility] Work Phone: [phone] Nucleated RBC/100 WBC (Bld) [Ratio] 0 % 0-5 [facility] Work Phone: [phone] MCHC Auto (RBC) [Mass/Vol]on 12-20-2021 MCHC (RBC) [Mass/Vol] 34.6 g/dL 32-36 [facility] Work [facility]: [phone] Panel Informationon 12-20 Estimated GFR (MDRD) Amer 95 mL/min >60 [facility] Work Phone: [phone] Comment on above: GFR Calc Estimated GFR (MDRD) Non-Af Amer 78 mL/min >60 [facility] Work Phone: [phone] Comment on above: Non- GFR Calc Platelets bldon 12-20-2021 Platelets (Bld) [#/Vol] 267 10*3/uL 150-450 [facility] Work Phone: Serum or plasma albumin agustin urement (mass/volume)on 12-20-2021 Albumin [Mass/Vol] 4.1 g/dL 3.2-5.0 [facility] Work Phone: [phone] Serum or plasma albumin/glob ulin mass ratioon 12-20-2021 Albumin/Globulin [Mass ratio] 1.1 {ratio} 0.9-2.4 [facility] Work Phone: [phone] Serum or plasma calcium agustin urement (mass/volume)on 12-20-2021 Calcium [Mass/Vol] 8.9 mg/dL 8.5-10.1 [facility] Work Phone: [phone] Serum or plasma creatinine m easurement (mass/volume)on 12-20-2021 Creatinine [Mass/Vol] 0.78 mg/dL 0.55-1.02 [facility] Work Phone: Comment on above: The validity of the calculated GFR & GFRAA in patients over 70 years has not been determined. Clinical correlation is essential. Serum or plasma urea nitroge n measurement (mass/volume)on 12-20-2021 Urea nitrogen [Mass/Vol] 10 mg/dL 7-18 [facility] Work Phone: Thin prep Papanicolaou smear with manual screeningon 12-20-2021 Thin prep Papanicolaou smear with manual screening 21 U/L 15-37 [facility] Work Phone: [phone] Thin prep Papanicolaou smear with manual screening 5 5-15 [facility] Work Phone: [phone] Absolute lymphocyte counton 10-19-2021 Lymphocytes Auto (Unsp spec) [#/Vol] 1.45 10*3/uL 0.83-4.51 [facility] Work Phone: [phone] Basophil percentageon 2021 Basophils/100 WBC (Bld) 0.5 % 0-1 [facility] Work Phone: [phone] Bilirubin [Mass/Vol] 0.40 mg/dL 0.20-1.00 [facility]: Comment on above: For patients on eltr ombopag therapy, use of Dimension [place] TBIL is not recommended. Chloride [Moles/Vol] 104 mmol/L 98-107 [facility] Work Phone: Eosinophils/100 WBC (Bld) 0.8 % 0-5 [facility] Work Phone: Glucose [Mass/Vol] 69 mg/dL 74-106 [facility] Work Phone: Neutrophils (Bld) [#/Vol] 2.0 10*3/uL 2.0-7.7 [facility] Work Phone: Neutrophils/100 WBC (Bld) 50.0 % 47-70 [facility] Work Phone: Potassium [Moles/Vol] 3.8 mmol/L 3.5-5.1 [facility] Work Phone: Protein [Mass/Vol] 7.7 g/dL 6.4-8.2 [facility] Work Phone: Sodium [Moles/Vol] 138 mmol/L 136-145 [facility] Work Phone: WBC (Bld) [#/Vol] 3.9 10*3/uL 4.4-11.0 [facility] Work Phone: Blood erythrocytes count (nu mber/volume)on 10-19-2021 RBC (Bld) [#/Vol] 3.62 10*6/uL 4.2-5.4 [facility] Work Phone: Blood hemoglobin measurement (mass/volume)on 10-19-2021 Hemoglobin (Bld) [Mass/Vol] 11.7 g/dL 12.0-15.0 [facility] Work Phone: Blood lymphocytes/100 leukoc yteson 10-19-2021 Lymphocytes/100 WBC (Bld) 37.1 % 19-41 [facility] Work Phone: Blood monocytes/100 leukocyt eson 10-19-2021 Monocytes/100 WBC (Bld) 11.3 % 0-10 [facility] Work Phone: Blood platelet mean volumeon 10-19-2021 Platelet mean volume (Bld) [Entitic vol] 9.4 fL 6.2-12.0 [facility] Work Phone: [phone] Determination of erythrocyte mean corpuscular volume (MCV)on 10-19-2021 MCV (RBC) [Entitic vol] 96.1 fL 81-99 [facility] Work Phone: [phone] Hematocrit Auto (Bld) [Volum e fraction]on 10-19-2021 Hematocrit (Bld) [Volume fraction] 34.8 % 37-47 [facility] Work Phone: Laboratory - Chemistry and C hemistry - challengeon 10-19-2021 ALP [Catalytic activity/Vol] 65 U/L 45-117 [facility] Work Phone: [phone] ALT [Catalytic activity/Vol] 29 U/L 13-56 [facility] Work Phone: [phone] CO2 [Moles/Vol] 30.0 mmol/L 21.0-32.0 [facility] Work Phone: Globulin (S) [Mass/Vol] 3.7 g/dL 2.2-4.2 [facility] Work Phone: [phone] Urea nitrogen/Creatinine [Mass ratio] 10.8 mg/mg 10-20 [facility] Work Phone: [phone] Laboratory - Hematology and Cell countson 10-19-2021 Erythrocyte distribution width (RBC) [Entitic vol] 50.0 fL 35.1-43.9 [facility] Work Phone: [phone] Erythrocyte distribution width (RBC) [Ratio] 14.1 % 11.6-14.6 [facility] Work Phone: [phone] Immature granulocytes/100 WBC (Bld) 0.300 % 0.0-0.9 [facility] Work Phone: [phone] Comment on above: IG% - Immature Granu locytes (promyelocytes, myelocytes and metamyelocytes) > 1% indicates that a LEFT SHIFT is Present. MCH (RBC) [Entitic mass] 32.3 pg 27.0-32.0 [facility] Work Phone: Nucleated RBC/100 WBC (Bld) [Ratio] 0 % 0-5 [facility] Work Phone: [phone] MCHC Auto (RBC) [Mass/Vol]on 10-19-2021 MCHC (RBC) [Mass/Vol] 33.6 g/dL 32-36 [facility] Work Phone: No Panel Informationon 10-19 Estimated GFR (MDRD) Amer 100 mL/min >60 [facility] Work Phone: Comment on above: GFR Calc Estimated GFR (MDRD) Non-Af Amer 83 mL/min >60 [facility] Work Phone: Comment on above: Non- GFR Calc Platelets bldon 10-19-2021 Platelets (Bld) [#/Vol] 264 10*3/uL 150-450 [facility] Work Phone: Serum or plasma albumin agustin urement (mass/volume)on 10-19-2021 Albumin [Mass/Vol] 4.0 g/dL 3.2-5.0 [facility] Work Phone: [phone] Serum or plasma albumin/glob ulin mass ratioon 10-19-2021 Albumin/Globulin [Mass ratio] 1.1 {ratio} 0.9-2.4 [facility] Work Phone: [phone] Serum or plasma calcium agustin urement (mass/volume)on 10-19-2021 Calcium [Mass/Vol] 9.1 mg/dL 8.5-10.1 [facility] Work Phone: [phone] Serum or plasma creatinine m easurement (mass/volume)on 10-19-2021 Creatinine [Mass/Vol] 0.74 mg/dL 0.55-1.02 [facility] Work Phone: [phone] Comment on above: The validity of the calculated GFR & GFRAA in patients over 70 years has not been determined. Clinical correlation is essential. Serum or plasma urea nitroge n measurement (mass/volume)on 10-19-2021 Urea nitrogen [Mass/Vol] 8 mg/dL 7-18 [facility] Work Phone: Thin prep Papanicolaou smear with manual screeningon 10-19-2021 Thin prep Papanicolaou smear with manual screening 22 U/L 15-37 [facility] Work Phone: Thin prep Papanicolaou smear with manual screening 4 5-15 [facility] Work Phone: Vital Signs Date Time Vital Sign Value Performing Clinician Faci lity 02-27-2024 13:27-0400 Body height 160 cm Lui Ferris MD Work Phone: [facility] 02-27-2024 13:27-0400 Body mass index (BMI) [Ratio] 27.81 kg/m2 Lui Ferris MD Work Phone: [facility] 02-27-2024 13:27-0400 Body temperature 97.59 [degF] uLi Ferris MD Work Phone: [facility] 02-27-2024 13:27-0400 Body weight 71.22 kg Lui Ferris MD Work Phone: [facility] 02-27-2024 13:27-0400 Diastolic blood pressure 86 mm[Hg] Lui Ferris MD Work Phone: [facility] 02-27-2024 13:27-0400 Heart rate 88 /min Lui Ferris MD Work Phone: [facility] 02-27-2024 13:27-0400 SaO2% (BldA) [Mass fraction] 99 % Lui Ferris MD Work Phone: [facility] 02-27-2024 13:27-0400 Systolic blood pressure 150 mm[Hg] Lui Ferris MD Work Phone: [facility] 01-18-2023 11:25-0400 Body temperature 97.81 [degF] Froilan Monique MD Work Phone: [facility] 01-18-2023 11:25-0400 Body weight 63.73 kg Froilan Monique MD Work Phone: [facility] 01-18-2023 11:25-0400 Diastolic blood pressure 69 mm[Hg] Froilan Monique MD Work Phone: [facility] 01-18-2023 11:25-0400 Heart rate 78 /min Froilan Monique MD Work Phone: [facility] 01-18-2023 11:25-0400 SaO2% (BldA) [Mass fraction] 98 % Froilan Monique MD Work Phone: [facility] 01-18-2023 11:25-0400 Systolic blood pressure 127 mm[Hg] Froilan Monique MD Work Phone: [facility] 2022 11:27-0500 Body height 160 cm Amna Marti MD Work Phone: [facility] 2022 11:27-0500 Body temperature 97.59 [degF] Amna Marti MD Work Phone: [facility] 2022 11:27-0500 Body weight 63.05 kg Amna Marti MD Work Phone: [facility] 2022 11:27-0500 Diastolic blood pressure 64 mm[Hg] Amna Marti MD Work Phone: [facility] 2022 11:27-0500 Heart rate 76 /min Amna aMrti MD Work Phone: [facility] 2022 11:27-0500 SaO2% (BldA) [Mass fraction] 96 % Amna Marti MD Work Phone: [facility] 2022 11:27-0500 Systolic blood pressure 129 mm[Hg] Amna Marti MD Work Phone: [facility] Encounters Encounter Date Encounter Type Care Provider Facility Start: 02-26-2025 ambulatory Galilea Price Facility:[facility] Start: 02-17-2025 End: 02-17-2025 ambulatory Galilea Price MANAGER TERMINAL-C Work Phone: [facility] Work Phone: Start: 02-17-2025 End: 02-17-2025 Patient encounter procedure Galilea Price MANAGER TERMINAL-C -Laboratory Omid [facility] Start: 02-17-2025 End: 02-17-2025 ambulatory Galilea Price Facility:[facility] Start: 12-16-2024 End: 12-16-2024 ambulatory Galilea Price MANAGER TERMINAL-C Work Phone: [facility] Work Phone: Start: 12-16-2024 End: 12-16-[address] Radha Bonilla MD -Laboratory, [place] Work Phone: Start: 12-16-2024 End: 12-16-2024 ambulatory [facility] Facility:[facility] Start: 09-26-2024 End: 09-26-[address] Radha Bonilla MD -Laboratory, [place] Work Phone: Start: 09-26-2024 End: 09-26-2024 ambulatory [facility] Facility:[facility] Start: 07-10-2024 End: 07-10-2024 ambulatory [facility] Facility:[facility] Start: 06-30-2024 End: 06-30-2024 ambulatory [facility] Facility:[facility] Start: 04-17-2024 End: 04-17-2024 ambulatory [facility] Facility:[facility] Start: 04-09-2024 End: 04-09-2024 ambulatory [facility] Facility:[facility] Start: 02-27-2024 End: 02-27-2024 Patient encounter procedure Lui Ferris MD Work Phone: Hematology/Oncology Start: 02-27-2024 End: 02-27-2024 ambulatory Lui Ferris MD Work Phone: Hematology/Oncology Comment on above: 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) Start: 01-14-2024 End: 01-14-2024 ambulatory [facility] Work Phone: Start: 01-14-2024 End: 01-14-2024 [facility] Start: 10-25-2023 End: 10-25-2023 ambulatory [facility] Work Phone: Start: 10-25-2023 End: 10-25-2023 [facility] Work [facility]: Start: 08-06-2023 End: 08-06-2023 Patient encounter procedure [facility]-Radiology, [place] Work Phone: Start: 08-01-2023 End: 08-01-2023 ambulatory [facility] Work Phone: Start: 08-01-2023 End: 08-01-2023 [facility] Start: 07-26-2023 End: 07-26-2023 ambulatory [facility] Work Phone: Start: 07-26-2023 End: 07-26-2023 Patient encounter procedure [facility] Work Phone: Start: 04-27-2023 End: 04-27-2023 ambulatory [facility] Work Phone: Start: 04-27-2023 End: 04-27-2023 [facility] Work Phone: Start: 02-09-2023 End: 02-09-2023 ambulatory [facility] Work Phone: Start: 02-09-2023 End: 02-09-2023 Patient encounter procedure [facility]-Outpatient Breast Imaging Start: 01-23-2023 End: 01-23-2023 [facility] Start: 01-18-2023 End: 01-18-2023 Office outpatient visit 15 minutes Froilan Monique MD Work Phone: Hematology/Oncology Comment on above: 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); Anemia, unspecified type; Neutropenia, unspecified type (HCC) Start: 01-12-2023 Orders Only Andrés Negron Work Phone: Hematology/Oncology Comment on above: 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); Rheumatoid arthritis 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) Start: 01-08-2023 End: 01-08-2023 ambulatory [facility] Work Phone: Start: 01-08-2023 End: 01-08-2023 Patient encounter procedure [facility] Start: 10-23-2022 End: 10-23-2022 Patient encounter procedure [facility] Start: 2022 End: 2022 ambulatory Amna Marti MD Work Phone: Hematology/Oncology Comment on above: 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); Rheumatoid arthritis 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) Start: 2022 End: 2022 Patient encounter procedure Amna Marti MD Work Phone: [facility] Start: 07-14-2022 Telephone encounter Amna Marti MD Work Phone: Hematology/Oncology Comment on above: Results Start: 07-12-2022 End: 07-12-2022 ambulatory [facility] Work Phone: Start: 07-12-2022 End: 07-12-2022 Patient encounter procedure [facility]-Pulmonary Services/Neurology Start: 04-28-2022 End: 04-28-2022 ambulatory [facility] Work Phone: Start: 04-28-2022 End: 04-28-2022 Patient encounter procedure [facility] Start: 02-20-2022 End: 02-20-2022 Patient encounter procedure [facility] Start: 02-14-2022 End: 02-14-2022 Patient encounter procedure [facility]-Outpatient Bone Densitometry Start: 02-08-2022 End: 02-08-2022 Patient encounter procedure [facility]-Outpatient Breast Imaging Start: 01-20-2022 End: 01-20-2022 Patient encounter procedure [facility] Start: 12-26-2021 End: 12-26-2021 Subsequent hospital visit by physician [facility] Work Phone: Radiology Comment on above: Rheumatoid arthritis 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) [M06.09] Start: 12-20-2021 End: 12-20-2021 Patient encounter procedure [facility] Start: 10-19-2021 End: 10-19-2021 Patient encounter procedure [facility] Procedures Date Procedure Procedure Detail Performing Clinician Start: 02-17-2025 Vitamin D, 25-hydrox y measurement Galilea DELUCAC Work Phone: Comment on above: Vitamin D StatusDefi ciency: <20 ng/mL (50nmol/L)Insufficiency: 20-30 ng/mL (50-75 nmol/L)Sufficiency: 30-100 ng/mL (75-250 nmol/L)Toxicity: >100 ng/mL (>250 nmol/L) Start: 08-06-2023 Plain chest X-ray Start: 02-09-2023 Screening mammography Start: 02-14-2022 Dual energy X-ray absorptiometry Start: 02-08-2022 Screening mammography Start: 12-26-2021 Us abdominal real ti me w/image limited Amna Marti MD Work Phone: Start: 06-23-2019 Adult depression scr eening assessment [facility] Work Phone: Start: 11-25-2013 Mammography [facility] Work Phone: Start: 08-18-2013 Lipid 1996 panel - S taina or Plasma Lui Ferris MD Work Phone: Start: 08-30-2006 Colonoscopy [facility] Work Phone: Plan of Treatment Date Care Activity Detail Author Start: 01-16-2026 DIABETES SCREEN DIABETES SCREEN [facility] Start: 01-16-2026 Diabetes Screening Diabetes Screenin g [facility] Start: 07-14-2025 DIABETES SCREEN DIABETES SCREEN [facility] Start: 02-27-2025 End: 02-27-2025 ambulatory Veronica Gongora [facility] Laboratory Comment on above: CBC* 1 YR OV/LABS EARLY* Start: 12-26-2024 DIABETES SCREEN DIABETES SCREEN [facility] Start: 09-10-2023 Advance Directive Discussion Advance Directive Discussion [facility] Start: 09-10-2023 Behavioral Health Screening Behavioral Health Screening [facility] Start: 08-22-2023 Covid-19 Vaccine () Covid-19 Vaccine () [facility] Start: 01-15-2023 End: 03-17-2023 CBC W Auto Differential panel - Blood CBC + DIFF Lab STAT Large granular lymphocytic leukemia (HCC) Rheumatoid arthritis 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) Expected: 01/15/2023, Expires: 03/17/2023 [facility] Work Phone: Comment on above: Expected: 01/15/2023 , Expires: 03/17/2023 Start: 01-15-2023 End: 03-17-2023 Comprehensive metabolic 2000 panel - Serum or Plasma COMP METABOLIC PANEL Lab STAT Large granular lymphocytic leukemia (HCC) Rheumatoid arthritis 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) Expected: 01/15/2023, Expires: 03/17/2023 [facility] Work Phone: Comment on above: Expected: 01/15/2023 , Expires: 03/17/2023 Start: 01-15-2023 End: 03-17-2023 Erythrocyte sedimentation rate SED RATE [facility] Lab Routine Large granular lymphocytic leukemia (HCC) Rheumatoid arthritis 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) Expected: 01/15/2023, Expires: 03/17/2023 [facility] Work Phone: Comment on above: Expected: 01/15/2023 , Expires: 03/17/2023 Start: 09-10-2022 ADVANCE DIRECTIVE DISCUSSION ADVANCE DIRECTIVE DISCUSSION [facility] Start: 09-10-2022 DEPRESSION ASSESSMENT DEPRESSION ASS ESSMENT [facility] Start: 09-10-2021 ADVANCE DIRECTIVE DISCUSSION ADVANCE DIRECTIVE DISCUSSION [facility] Start: 09-10-2021 DEPRESSION ASSESSMENT DEPRESSION ASS ESSMENT [facility] Start: 06-27-2020 Pneumococcal Vaccine : 65+ (3 of 3 - PCV) Pneumococcal Vaccine: 65+ (3 of 3 - PCV) [facility] Start: 06-23-2020 Adult depression screening assessment DEPRESSION SCREENING [facility] Start: 06-27-2019 PNEUMOCOCCAL: 65+ (2 - PCV) PNEUMOCOCCAL: 65+ (2 - PCV) [facility] Start: 02-28-2019 Shingrix Vaccine (2 of 2) Shingrix Vaccine (2 of 2) [facility] Start: 08-18-2018 Lipid panel Lipid Screening [facility] Start: 08-18-2018 LIPID SCREEN LIPID SCREEN [facility] Start: 2017 BONE DENSITY BONE DENSITY [facility] Start: 2017 Screening for osteoporosis Bone Density Screening [facility] Start: 08-30-2016 Colonoscopy COLONOSCOPY [facility] Start: 08-30-2016 COLORECTAL CANCER SCREENING COLORECTAL CANCER SCREENING [facility] Start: 08-30-2016 Screening for malign ant neoplasm of colon [facility] Start: 11-25-2014 Mammography MAMMOGRAM [facility] Start: 11-25-2014 Screening for malign ant neoplasm of breast Mammogram Screening [facility] Start: 08-13-2013 Screening for malign ant neoplasm of cervix Cervical Cancer Screening [facility] Start: 2002 SHINGRIX VACCINE (1 of 2) SHINGRIX VACCINE (1 of 2) [facility] Start: 1997 COLOGUARD (FIT-DNA) COLOGUARD (FIT-D NA) [facility] Start: [address] COLONOGRAPHY [facility] Start: 1997 FECAL OCCULT BLOOD FECAL OCCULT BLOO D [facility] Start: 1997 Screening for malign ant neoplasm of colon [facility] Start: 1997 SIGMOIDOSCOPY SIGMOIDOSCOPY [facility] Start: 1971 SHINGRIX VACCINE (1 of 2) SHINGRIX VACCINE (1 of 2) [facility] Start: 1971 Urine microalbumin profile [facility] Start: 1970 ANNUAL PCP TEAM HOTEL GENERAL MANAGER FELICIANO DISEASE VISIT ANNUAL PCP TEAM CHRONIC DISEASE VISIT [facility] Immunizations Immunization Date Immunization Notes Care Provider Fa cility 12-25-2020 COVID-19 vaccine, ag e 12+ yr (PFIZER-BIONTECH - PURPLE TOP) [facility] Work Phone: [facility] 12-02-2020 COVID-19 vaccine, ag e 12+ yr (PFIZER-BIONTECH - PURPLE TOP) [facility] Work Phone: [facility] 06-27-2018 pneumococcal polysaccharide vaccine, 23 valent Amna Marti MD Work Phone: [facility] Payers Date Payer Category Payer Self-pay [id number] 2017 Medicare MEDICARE MEDICAR E A AND B [id number] 2017-Present [phone] [place] [address] Medicare [id number] 2017 Medicare MEDICARE MEDICAR E A AND B [id number] 2017-Present [phone] [place] [address] Medicare [id number] 2017 Medicare [id number] 2005 Unknown [facility] [id number] 2005-Present [phone] [address] [address] [place] [address] Indemnity [id number] 2005 Unknown [facility] [id number] 2005-Present [phone] [address] [address] [place] [address] Indemnity [id number] 2005 Unknown [id number] Unknown [id number] Unknown [id number] Unknown [id number] Unknown [id number] Unknown [id number] Unknown [id number] Unknown [id number] Unknown [id number] Social History Date Type Detail Facility Start: 08-16-2011 End: 03-17-2014 Tobacco smoking status CAIS Never smoked tobacco [facility] Start: 06-17-2021 End: 02-27-2024 Alcohol intake Current non-drinker of alcohol (finding) [facility] Start: 1950 Sex Assigned At Not on file C [facility] Start: 11-22-2021 End: 2022 Exposure to SARS-CoV-2 (event) Not sure [facility] Start: 03-17-2014 End: 03-17-2014 Tobacco smoking status CAIS Unknown if ever smoked [facility] Start: 1950 Sex Assigned At Female W [facility] Start: 08-16-2011 Tobacco use and exposure Smokeless tobacco non-user [facility] Start: 08-15-2020 End: 06-19-2024 History of Social function [facility] Start: 08-15-2020 End: 02-27-2024 Tobacco use panel [facility] Adult Depression Screening Assessment 0 [facility] Start: 12-22-2024 [facility] (finding[facility] 12-26-2021 to 02-27-2024 Lui Ferris MD - 02/27/2024 1:32 PM Liliana Monique MD - 01/18/2023 11:27 AM Gilmer Marti MD - 2022 11:23 AM ESTTelephone Encounter - Amna Marti MD - 07/14/2022 1:12 PM EDT Note Date & Type Note Facility 02-27-2024 Note HNO ID: [id number] Author: LUI FERRIS MD Service: ? Author Type: Physician Type: Progress Notes Filed: 02/27/2024 15:11 Note Text: HISTORY OF PRESENT ILLNESS: Elenita Haines is a 73 year old female history LGL diagnosed [address] Matri when presented with long standing neutropenia. She underwent bone marrow biopsy which rendered diagnosis. She has been observed since that time, with actual resolution of cytopenias. She has received methotrexate for treatment of her rheumatoid arthritis, which has likely also benefited her hematologic condition. She is here for follow up, doing well, no infections. Notes some mouth sores since last visit, attributes to methotrexate. CLINICAL IMPRESSION: LGL in remission RECOMMENDATION/PLAN: 1. Watch cbc, back in 1 year, sooner as indicated. Written and verbal health teaching given to patient, patient verbalizes understanding and agrees with treatment plan. PAST MEDICAL HISTORY Diagnosis Date Abdominal pain, left lower quadrant Abnormal glandular Papanicolaou smear of cervix Abn. 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 Snoring Unspecified asthma(493.90) Unspecified hypothyroidism Hypothyroidism PAST SURGICAL HISTORY Procedure Laterality Date CATARACT EXTRACTION HX Right 07/24/2019 CATARACT EXTRACTION HX Left 08/06/2019 DELIVERY ONLY , low cervical COLONOSCOPY FLX DX W/COLLJ SPEC WHEN PFRMD 08/30/2006 repeat in CONIZATION CERVIX W/WO DANDC RPR ELTRD EXC 2000 LEEP-Cervix ENDOMETRIAL BX W/WO ENDOCERVIX BX W/O DILAT SPX 10/16/03 disordered proliferative endometrium PAST SURGICAL HISTORY OF foot surgery PAST SURGICAL HISTORY OF repair of right middle finger lac PAST SURGICAL HISTORY OF 09/19/2005 rotator cuff repair right FAMILY HISTORY Problem Relation Age of Onset Diabetes Mother Diabetes Father Heart disease Father other (corneal transplant) Father other (Blood disorder) Paternal Grandmother Social History Tobacco Use Smoking status: Never Smokeless tobacco: Never Vaping Use Vaping Use: Never used Substance Use Topics Alcohol use: No Drug use: No ALLERGIES: ALLERGIES Allergen Reactions Adhesive Tape (Maye* Rash, Itching, Other: See Comments Bruising Animal Dander Bandaids [Other] Bees Dust Emyacin [Other] Flu Vaccine [Other] Unknown Pt had flu vaccine on 07/23/18 AND no problems or reactions. Grass Pollen Iodinated Contrast * GI Upset Headache, nausea Latex Mildew Mold Norflex [Orphenadri* all muscle relaxants Penicillins Ragweed Sulfa (Sulfonamide * Tcn [Tetracyclines] Tetanus Vaccines An* CURRENT OUTPATIENT MEDICATIONS: leucovorin (LEUCOVORIN) 15 mg tablet Take 15 mg by mouth one time a week. latanoprost (XALATAN) 0.005 % ophthalmic solution Use 1 Drop in both eyes daily at bedtime. OTC PRODUCT Hempvana Cream [...] OCEAN) 0.65 % nasal spray Use 1 [place] in the nose as needed. therapeutic multivitamin (THERA VITAMIN) tablet Take 1 tablet by mouth once daily. guaifenesin/dextromethorphan (MUCINEX DM ORAL) Take 1 tablet by mouth twice daily as needed. pravastatin 20 mg tablet Take 1 tablet by mouth every evening. EPINEPHrine (EPIPEN) 0.3 mg/0.3 mL (1:1,000) PnIj Use as directed diphenhydramine hcl(BENADRYL 25 MG CAP) Take 100 mg by mouth as needed. SOOTHE 1 %-4.5 % EYE DROPS Use 1 Drop in both eyes as needed. OTC PRODUCT Hempvana Cream: One application as needed for pain. (Patient not taking: Reported on 01/18/2023) traZODone 50 mg tablet Take 2 tablets by mouth daily at bedtime. (Patient not taking: Reported on 01/18/2023) montelukast 10 mg tablet Take 1 tablet by mouth daily at bedtime. (Patient not taking: Reported on 01/18/2023) REVIEW OF SYSTEMS: GENERAL: No fever, night sweats, weight loss or malaise. All other reviewed and negative other than HPI. PHYSICAL EXAMINATION: VITAL SIGNS: BP 150/86 Pulse 88 Te (more content not included)... [facility] 02-27-2024 History of Present illness Narrative HISTORY OF PRESENT ILLNESS: Elenita Haines is a 73 year old female history LGL diagnosed [address] Marti when presented with long standing neutropenia. She underwent bone marrow biopsy which rendered diagnosis. She has been observed since that time, with actual resolution of cytopenias. She has received methotrexate for treatment of her rheumatoid arthritis, which has likely also benefited her hematologic condition. She is here for follow up, doing well, no infections. Notes some mouth sores since last visit, attributes to methotrexate. CLINICAL IMPRESSION: LGL in remission RECOMMENDATION/PLAN: 1. Watch cbc, back in 1 year, sooner as indicated. Written and verbal health teaching given to patient, patient verbalizes understanding and agrees with treatment plan. PAST MEDICAL HISTORY Diagnosis Date Abdominal pain, left lower quadrant Abnormal glandular Papanicolaou smear of cervix Abn. 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 Snoring Unspecified asthma(493.90) Unspecified hypothyroidism Hypothyroidism PAST SURGICAL HISTORY Procedure Laterality Date CATARACT EXTRACTION HX Right 07/24/2019 CATARACT EXTRACTION HX Left 08/06/2019 DELIVERY ONLY , low cervical COLONOSCOPY FLX DX W/COLLJ SPEC WHEN PFRMD 08/30/2006 repeat in CONIZATION CERVIX W/WO D&C RPR ELTRD EXC 2000 LEEP-Cervix ENDOMETRIAL BX W/WO ENDOCERVIX BX W/O DILAT SPX 10/16/03 disordered proliferative endometrium PAST SURGICAL HISTORY OF foot surgery PAST SURGICAL HISTORY OF repair of right middle finger lac PAST SURGICAL HISTORY OF 09/19/2005 rotator cuff repair right FAMILY HISTORY Problem Relation Age of Onset Diabetes Mother Diabetes Father Heart disease Father other (corneal transplant) Father other (Blood disorder) Paternal Grandmother Social History Tobacco Use Smoking status: Never Smokeless tobacco: Never Vaping Use Vaping Use: Never used Substance Use Topics Alcohol use: No Drug use: No ALLERGIES: ALLERGIES Allergen Reactions Adhesive Tape (Maye* Rash, Itching, Other: See Comments Bruising Animal Dander Bandaids [Other] Bees Dust Emyacin [Other] Flu Vaccine [Other] Unknown Pt had flu vaccine on 07/23/18 & no problems or reactions. Grass Pollen Iodinated Contrast * GI Upset Headache, nausea Latex Mildew Mold Norflex [Orphenadri* all muscle relaxants Penicillins Ragweed Sulfa (Sulfonamide * Tcn [Tetracyclines] Tetanus Vaccines An* CURRENT OUTPATIENT MEDICATIONS: leucovorin (LEUCOVORIN) 15 mg tablet Take 15 mg by mouth one time a week. latanoprost (XALATAN) 0.005 % ophthalmic solution Use 1 Drop in both eyes daily at bedtime. OTC PRODUCT Hempvana Cream [...] OCEAN) 0.65 % nasal spray Use 1 [place] in the nose as needed. therapeutic multivitamin (THERA VITAMIN) tablet Take 1 tablet by mouth once daily. guaifenesin/dextromethorphan (MUCINEX DM ORAL) Take 1 tablet by mouth twice daily as needed. pravastatin 20 mg tablet Take 1 tablet by mouth every evening. EPINEPHrine (EPIPEN) 0.3 mg/0.3 mL (1:1,000) PnIj Use as directed diphenhydramine hcl(BENADRYL 25 MG CAP) Take 100 mg by mouth as needed. SOOTHE 1 %-4.5 % EYE DROPS Use 1 Drop in both eyes as needed. OTC PRODUCT Hempvana Cream: One application as needed for pain. (Patient not taking: Reported on 01/18/2023) traZODone 50 mg tablet Take 2 tablets by mouth daily at bedtime. (Patient not taking: Reported on 01/18/2023) montelukast 10 mg tablet Take 1 tablet by mouth daily at bedtime. (Patient not taking: Reported on 01/18/2023) REVIEW OF SYSTEMS: GENERAL: No fever, night sweats, weight loss or malaise. All other reviewed and negative other than HPI. PHYSICAL EXAMINATION: VITAL SIGNS: BP 150/86 Pulse 88 Temp (Src) 97.6 (Temporal) Ht 5' 3 (1.60m) Wt 157 lb (71.2kg) SpO2 99% BMI 27.82 kg/(m^2). GENERAL APPEARANCE: Well appearing, in no acute distress, alert and oriented x3, well-hydrated, well nourished. Small aphthous ulcer on right buccal tongue, no thrush I spent a total of 45 minutes on the date of the service which included preparing to see the patient, [id number] patient care, completing clinical documentation, obtaining and/or reviewing separately obtained history, performing a medically appropriate examination, counseling and educating the patient/family/caregiver, ordering medications, tests, or procedures, independently interpreting results (not separately reported), and communicating results to the patient/family/caregiver. Electronically Signed: Lui Ferris MD February 27, 2024 1:33 PM documented in this encounter [facility] 01-18-2023 History of Present illness Narrative Images from the original note were not included. [facility] Progress Note SERVICE DATE: January 18, 2023 [...] OCEAN) 0.65 % nasal spray Use 1 [place] in the nose as needed. therapeutic multivitamin [...] Height as of 07/21/22: 160 cm (5' 2.99). Weight as of this encounter: 63.7 kg [...] Lymph 1.00 - 4.00 k/uL 0.73 (L) Falls% % 9.3 Abs Falls <0.87 k/uL 0.50 Eosin% % 2.0 Abs [...] lab checks every 3 months at her machine washer's office. PLAN: She will come back in one year for f/u with repeat CBCD. Froilan Monique MD cc: Barbie Pickens MD documented in this encounter [facility] 2022 History of Present illness Narrative PATIENT NAME: Elenita Haines. CLINIC NO: [id number]. ATTENDING PHYSICIAN: Amna Marti MD. DATE OF SERVICE: 2022 DIAGNOSIS: LGL [...] ulcer disease, patient had a colonoscopy in 2014 with hemorrhoidal bleeding. She denied hematemesis or [...] Abs Lymph 1.00 - 4.00 k/uL 1.19 Falls% % 9.5 Abs Falls <0.87 k/uL 0.31 Eosin% % 0.3 Abs [...] needed for arthritis. -Follow-up with PCP or machine washer for arthritic pain Amna Marti MD Cc; MD Radha Juares MD documented in this encounter [facility] 07-14-2022 Miscellaneous Notes CBC is fine. 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) Other lymphoid leukemia, without mention of having achieved remission [facility] noteNo assessment information availableWSum[facility] Work Phone: Evaluation note* Diagnosis Large granular lymphocytic leukemia (HCC)- Primary Other lymphoid leukemia, without mention of having achieved remission Rheumatoid arthritis 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) [facility] [place] [facility]* Diagnosis Large granular lymphocytic leukemia (HCC)- Primary Other lymphoid leukemia, without mention of having achieved remission Rheumatoid arthritis 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) [facility] Large granular lymphocytic leukemia (HCC)- Primary Other lymphoid leukemia, without mention of having achieved remission Anemia, unspecified type Neutropenia, unspecified type (HCC) [facility] [place] [facility]* Diagnosis Large granular lymphocytic leukemia (HCC)- Primary Other lymphoid leukemia, without mention of having achieved remission [facility] Diagnostic Procedure Only (Routine) - Closed Specialty Diagnoses / Procedures Referred By Contac t Referred To Contact US IMAGING Diagnoses 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) Procedures US ABD RT UPPER QUADRANT ULTRASOUND-ABDOMINAL PC Amna Marti MD [address] [place] [id number] Us Imaging Referral ID Status Reason Start Date Expiration Date V isits Requested Visits Authorized [id number] Closed Auto-Generate d Referral 12/16/2021 07/17/2022 1 1 [facility]ative)No reason for referral information availableWSumma [facility] Work Phone: Advance Directives No Advanced Directives Records FoundDocuments on File Type Date Recorded Patient Siderographer Expl anation Advance Directive(s) 02/13/2018 11:03 AM Advance Directive Response Recorded Date/ Time Advance Directives Yes March 24 9:05am Living Will Yes March 24, 2014 9:05am Power of Cardiovascular Or Nurse Yes March 24 4 9:05am Advance Directive Response Recorded Date/ Time Advance Directives Yes March 24 8:05am Living Will Yes March 24, 2014 8:05am Power of Cardiovascular Or Nurse Yes March 24 4 8:05am Advance Directive Response Recorded Date/ Time Advance Directives Yes March 24 9:05am Chief Complaint and Reason for Visit Chief Complaint ARTHRITIS/PAIN- COPY PCP S/O- EVERY 3 MOS/ PAIN- COPY PCP Chief Complaint ARTHRITIS/PAIN- COPY PCP S/O- EVERY 3 MOS/ PAIN- COPY PCP SCREENING Chief Complaint ARTHRITIS/PAIN- COPY PCP S/O- EVERY 3 MOS/ PAIN- COPY PCP SCREENING OSTEO Chief Complaint SCREENING OSTEO STANDING ORDER S/O- PAIN- COPY PCP Chief Complaint S/O- PAIN- COPY PCP 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 Chief Complaint S/O- PAIN- COPY PCP Chief Complaint S/O- PAIN- COPY PCP SCREENING Chief Complaint S/O- PAIN- COPY PCP SCREENING S/O- PAIN- COPY PCP Chief Complaint S/O- PAIN- COPY PCP S/O- PAIN-COPY PCP Chief Complaint S/O- PAIN-COPY PCP S/O- PAIN- COPY PCP Chief Complaint S/O- PAIN- COPY PCP STANDING ORDER - COPY PCP Chief Complaint Admit Date S/O- PAIN- COPY PCP September 26, 2024 1 2:44pm S/O- PAIN- COPY PCP December 16, 2024 12:4 6pm Chief Complaint Admit Date S/O- PAIN- COPY PCP December 16, 2024 12:4 6pm Summary Purpose Family History No Family History Records FoundNo Family History Records Found Additional Source Comments Source Comments (unrecognize d section and content) In the event this informatio n is protected by the Federal Confidentiality of Alcohol and Drug Abuse Patient Records regulations: The Federal rules restrict any use of the information to criminally investigate or prosecute any alcohol or drug abuse patient.[facility] the event this information is protected by the Federal Confidentiality of Alcohol and Drug Abuse Patient Records regulations: The Federal rules restrict any use of the information to criminally investigate or prosecute any alcohol or drug abuse patient.[facility] SystemIn the event this information is protected by the Federal Confidentiality of Alcohol and Drug Abuse Patient Records regulations: The Federal rules restrict any use of the information to criminally investigate or prosecute any alcohol or drug abuse patient.[facility] SystemIn the event this information is protected by the Federal Confidentiality of Alcohol and Drug Abuse Patient Records regulations: The Federal rules restrict any use of the information to criminally investigate or prosecute any alcohol or drug abuse patient.[facility] SystemIn the event this information is protected by the Federal Confidentiality of Alcohol and Drug Abuse Patient Records regulations: The Federal rules restrict any use of the information to criminally investigate or prosecute any alcohol or drug abuse patient.[facility] SystemIn the event this information is protected by the Federal Confidentiality of Alcohol and Drug Abuse Patient Records regulations: The Federal rules restrict any use of the information to criminally investigate or prosecute any alcohol or drug abuse patient.[facility] Reason for Visit (unrecogniz ed section and content) Reason Comments Radiology US Specialty Diagnoses / Procedures Referred By Contac t Referred To Contact US IMAGING Diagnoses 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) Procedures US ABD RT UPPER QUADRANT ULTRASOUND-ABDOMINAL PC Amna Marti MD [address] [facility] [place] [address] Us Imaging Referral ID Status Reason Start Date Expiration Date V isits Requested Visits Authorized [id number] Closed Auto-Generate d Referral 12/16/2021 07/17/2022 1 1 Reason Comments Results Reason Comments Established Patient Reason Comments 6 month check Care Teams (unrecognized sec tion and content) Clinical Support Nurse Relationship Specialty Start Date End Date Barbie Pickens MD PCP - General Family Practice 02/23/14 Wendy Felder RN Specialty Load Out Person Oncology 02/22/18 Radha Bonilla [address] [id number] Consulting Rheumatology 06/17/21 Clinical Support Nurse Relationship Specialty Start Date End Date Barbie Pickens MD PCP - General Family Medicine 02/23/14 Wendy Felder RN Specialty Load Out Person Oncology 02/22/18 Radha Bonilla [address] [place] [address] Consulting Rheumatology 06/17/21 Clinical Support Nurse Relationship Specialty Start Date End Date Barbie Pickens MD PCP - General Family Medicine 02/23/14 Wendy Felder RN Specialty Load Out Person Oncology 02/22/18 Radha Bonilla [address] [place] [address] Consulting Rheumatology 06/17/21 Team Status: Active Member Role Status Dates Dr. Barbie Pickens MD Family Provider Active DEIRDRE Devine Primary Care Provider Active Team Status: Inactive Member Role Status Dates Dr. Barbie Pickens MD Primary Care Provider Active Dr. Radha Bonilla MD Attending Provider, Referring Provider Active Team Status: Inactive Member Role Status Dates DEIRDRE Devine Primary Care Provider Active Dr. Radha Bonilla MD Attending Provider, Referring Provider Active Clinical Support Nurse Relationship Specialty Start Date End Date Barbie Pickens MD PCP - General Family Medicine 02/23/14 Wendy Felder RN Specialty Load Out Person Oncology 02/22/18 Radha Bonilla [address] [place] [address] Consulting Rheumatology 06/17/21 Clinical Support Nurse Relationship Specialty Start Date End Date Barbie Pickens MD PCP - General Family Medicine 02/23/14 Wendy Feldre RN Specialty Load Out Person Oncology 02/22/18 Radha Bonilla [address] [place] [address] Consulting Rheumatology 06/17/21 Lui Ferris MD [facility] [place] [address] Hematology/Oncology 01/18/23 Team Status: Inactive Member Role Status Dates Galilea Price NP-C Primary Care Provide r, Attending Provider, Referring Provider Active Team Status: Inactive Member Role Status Dates YOSI DevineC Primary Care Provider, Attending Mario gandara Active Team Status: Active Member Role Status Dates Galilea Price NP-C Primary Care Provide r, Attending Provider, Referring Provider Active Clinical Support Nurse Relationship Specialty Start Date End Date Barbie Pickens MD PCP - General Family Medicine 02/23/14 Wendy Felder RN Specialty Load Out Person Oncology 02/22/18 Radha Bonilla [address] [place] [address] Consulting Rheumatology 06/17/21 Lui Ferris MD [address] [place] [address] Hematology/Oncology 01/18/23 Team Status: Inactive Member Role Status Dates Galilea Price NP-C Primary Care Provider Active Start: September 26, 2024 End: September 26, 2024 Dr. Radha Bonilla MD Attending Provider Active Start: September 26, 2024 End: September 26, 2024 Dr. Radha Bonilla MD Referring Provider Active Start: September 26, 2024 End: September 26, 2024 Team Status: Inactive Member Role Status Dates YOSI DevineC Primary Care Provider Active Start: December 16, 2024 End: December 16, 2024 Dr. Radha Bonilla MD Attending Provider Active Start: December 16, 2024 End: December 16, 2024 Dr. Radha Bonilla MD Referring Provider Active Start: December 16, 2024 End: December 16, 2024 Team Status: Active Member Role Status Dates Galilea Price NP-C Primary Care Provider Active Team Status: Inactive Member Role Status Dates Galilea Price NP-C Primary Care Provider Active Start: February 17, 2025 End: February 17, 2025 DEIRDRE Devine Attending Provider Active St art: February 17, 2025 End: February 17, 2025 Goals (unrecognized section and content) Goals may be documented in a n alternate sectionGoals may be documented in an alternate sectionGoals may be documented in an alternate sectionGoals may be documented in an alternate sectionGoals may be documented in an alternate sectionGoals may be documented in an alternate sectionGoals may be documented in an alternate sectionGoals may be documented in an alternate sectionGoals may be documented in an alternate sectionGoals may be documented in an alternate sectionGoals may be documented in an alternate sectionGoals may be documented in an alternate sectionGoals may be documented in an alternate sectionGoals may be documented in an alternate sectionGoals may be documented in an alternate section INFORMATION SOURCE (unrecogn ized section and content) DATE CREATED AUTHOR 02/29/[address] [facility] DATE CREATED AUTHOR AUTHOR'S LUPILLO WILLARD 02/25/2025 [place] FOR RECORDS PERTAINING TO PATIENTS WHO ARE [...] BE BASED ON THE PRIMARY CLINICAL RECORDS. [facility]. provides no warranty or guarantee of the accuracy or completeness of information in this document.
== END | disposition home or self-care (01) ==
LOC: OPBD 10:07
PROVIDERS: PCP Nurse Practitioner Family; Referring Provider Nurse Practitioner Family; Visit Provider Nurse Practitioner Family
DX: Z13.820 Encounter for screening for osteoporosis (principal); Z78.0 Asymptomatic menopausal state
CPT/HCPCS: 77080

== ENCOUNTER → 2025-03-09 | Outpatient (CLI) | payer MEDICARE, OTHER, SELFPAY ==
[2025-03-09 15:07] LABS: Absolute Neutrophil Count 4.1 X10^3/uL (2.0-7.7); Basophil# 0.02 X10^3/uL; Basophil% 0.3 % (0-1); Eosinophil# 0.08 X10^3/uL; Eosinophils% 1.2 % (0-5); Hematocrit 37.1 % (37-47); Hemoglobin 12.3 g/dL (12.0-15.0); Mean Corp Hgb Conc 33.2 g/dL (32-36); Mean Corpuscular Hgb 32.2 pg (27.0-32.0); Mean Corpuscular Volume 97.1 fL (81-99); Monocyte# 0.54 X10^3/uL; Monocyte% 8.3 % (0-10); NRBC Flagged by Analyzer 0 % (0-5); Neutrophil % 62.8 % (47-70); POSITIVE MORPHOLOGY YES; Platelet Count 314 K/mm3 (150-450); RBC Distribution Width CV 14.6 % (11.6-14.6); RBC Distribution Width SD 51.8 fl (35.1-43.9); Red Blood Count 3.82 M/mm3 (4.2-5.4); White Blood Count 6.5 K/mm3 (4.4-11.0)
[2025-03-09 15:46] LABS: ALB/GLOB Ratio 1.7 RATIO (0.9-2.4); AST(SGOT) 29 U/L (<=31); Alanine Aminotransfer ALT/SGPT 20 U/L (<=34); Albumin, Serum 4.4 g/dL (3.4-4.8); Alkaline Phosphatase 61 U/L (35-104); Anion Gap 12 (5-15); BUN 15 mg/dL (4-19); BUN/Creat Ratio 18.7 RATIO (10-20); Calcium,Total 9.9 mg/dL (7.6-11.0); Chloride 100 mmol/L (98-108); Creatinine, Serum 0.78 mg/dL (0.70-1.20); EST Glomerular Filtration Rate 81 (>60); Globulin 2.7 g/dL (2.2-4.2); Glucose 111 mg/dL (70-99); Protein, Total 7.1 g/dL (5.9-8.4); Sodium Level 139 mmol/L (133-145); Total Bilirubin 0.29 mg/dL (0.00-1.30)
[2025-03-09 17:15] LABS: Differential Indicated SCAN CRITERIA MET
[2025-03-09 17:16] LABS: Differential Comment SCANNED
== END | disposition home or self-care (01) ==
LOC: MTLAB 11:49
PROVIDERS: PCP Nurse Practitioner Family; Referring Provider Internal Medicine Rheumatology; Visit Provider Internal Medicine Rheumatology
DX: M06.00 Rheumatoid arthritis without rheumatoid factor, unspecified site (principal); C91.Z0 Other lymphoid leukemia not having achieved remission; Z79.899 Other long term (current) drug therapy; M79.7 Fibromyalgia
CPT/HCPCS: 36415; 80053; 85025

== ENCOUNTER → 2025-06-02 | Outpatient (CLI) | payer MEDICARE, OTHER, SELFPAY ==
[2025-06-02 15:21] LABS: Hematocrit 38.3 % (37-47); Hemoglobin 13.2 g/dL (12.0-15.0); Immature Granulocytes Count 0.020 X10^3/uL (0.0-0.0); Mean Corp Hgb Conc 34.5 g/dL (32-36); Mean Corpuscular Volume 96.7 fL (81-99); Mean Platelet Vol. 9.9 fl (6.2-12.0); NRBC Flagged by Analyzer 0 % (0-5); Platelet Count 327 K/mm3 (150-450); RBC Distribution Width CV 14.1 % (11.6-14.6); RBC Distribution Width SD 49.6 fl (35.1-43.9); Red Blood Count 3.96 M/mm3 (4.2-5.4); White Blood Count 7.4 K/mm3 (4.4-11.0)
[2025-06-02 15:35] LABS: AST(SGOT) 30 U/L (<=31); Alanine Aminotransfer ALT/SGPT 27 U/L (<=34); Albumin, Serum 4.9 g/dL (3.4-4.8); Alkaline Phosphatase 59 U/L (35-104); Anion Gap 13 (5-15); BUN 14 mg/dL (4-19); BUN/Creat Ratio 19.3 RATIO (10-20); Calcium,Total 10.3 mg/dL (7.6-11.0); Carbon Dioxide 26.6 mmol/L (21.0-32.0); Chloride 97 mmol/L (98-108); Globulin 3.0 g/dL (2.2-4.2); Glucose 119 mg/dL (70-99); Potassium 3.7 mmol/L (3.3-5.1)
== END | disposition home or self-care (01) ==
LOC: MTLAB 12:34
PROVIDERS: PCP Nurse Practitioner Family; Referring Provider Internal Medicine Rheumatology; Visit Provider Internal Medicine Rheumatology
DX: M06.00 Rheumatoid arthritis without rheumatoid factor, unspecified site (principal); Z79.899 Other long term (current) drug therapy; M79.7 Fibromyalgia
CPT/HCPCS: 36415; 80053; 85025

== ENCOUNTER → 2025-07-14 | Outpatient (CLI) | payer MEDICARE, OTHER, SELFPAY ==
--- NOTE | 2025-07-14 10:09 | BI_ITS ---
EXAM: BI/SCRN MAMM (CAD)W/AJITH BILAT
== END | disposition home or self-care (01) ==
PROVIDERS: PCP Nurse Practitioner Family; Referring Provider Nurse Practitioner Family; Visit Provider Nurse Practitioner Family
DX: Z12.31 Encounter for screening mammogram for malignant neoplasm of breast (principal)
CPT/HCPCS: 77063; 77067

== ENCOUNTER → 2025-08-28 | Outpatient (CLI) | payer MEDICARE, OTHER, SELFPAY ==
[2025-08-28 15:05] LABS: Hematocrit 39.6 % (37-47); Hemoglobin 13.5 g/dL (12.0-15.0); Immature Granulocytes Count 0.010 X10^3/uL (0.0-0.0); Mean Corp Hgb Conc 34.1 g/dL (32-36); Mean Corpuscular Volume 96.6 fL (81-99); Mean Platelet Vol. 9.4 fl (6.2-12.0); NRBC Flagged by Analyzer 0 % (0-5); Platelet Count 348 K/mm3 (150-450); RBC Distribution Width CV 14.0 % (11.6-14.6); RBC Distribution Width SD 48.8 fl (35.1-43.9); Red Blood Count 4.10 M/mm3 (4.2-5.4); White Blood Count 5.6 K/mm3 (4.4-11.0)
[2025-08-28 15:33] LABS: AST(SGOT) 24 U/L (<=31); Alanine Aminotransfer ALT/SGPT 22 U/L (<=34); Albumin, Serum 4.7 g/dL (3.4-4.8); Alkaline Phosphatase 66 U/L (35-104); Anion Gap 11 (5-15); BUN 13 mg/dL (4-19); BUN/Creat Ratio 15.0 RATIO (10-20); Calcium,Total 9.9 mg/dL (7.6-11.0); Carbon Dioxide 28.7 mmol/L (21.0-32.0); Chloride 99 mmol/L (98-108); Globulin 2.9 g/dL (2.2-4.2); Glucose 111 mg/dL (70-99); Potassium 4.1 mmol/L (3.3-5.1)
== END | disposition home or self-care (01) ==
LOC: MTLAB 13:21
PROVIDERS: PCP Nurse Practitioner Family; Referring Provider Internal Medicine Rheumatology; Visit Provider Internal Medicine Rheumatology
DX: M06.00 Rheumatoid arthritis without rheumatoid factor, unspecified site (principal); Z79.899 Other long term (current) drug therapy
CPT/HCPCS: 36415; 80053; 85025